=== PATIENT | female | born 1940 | race African-American/Black ===

== ENCOUNTER 2017-03-23 07:07 | Inpatient (IN) ==
[2017-03-23] MEDS ORDERED: SOLU-MEDROL IV ONE (07:45)
[2017-03-23] MEDS ORDERED: DUONEB (A & A) INH ONE (07:45)
[2017-03-23 08:09] LABS: MANUAL DIFF NEEDED? NO
--- NOTE | 2017-03-23 08:18 | Diag Imaging Result Doc PS360 ---
CHEST-2 VIEWS - 03/23/2017 INDICATION: CP TECHNIQUE: COMPARISON: 01/14/2017 FINDINGS: Stable left chest port. Stable borderline cardiomegaly. Pulmonary vascularity is normal. Stable patchy atelectasis in the lung bases. No pneumothorax or pleural effusion. IMPRESSION: No change from prior. Electronically signed by Colin Martel 03/23/2017 8:15 AM
[2017-03-23 08:26] LABS: BASO% 0.6 % (0.0-0.8); EOS# 0.11 X1000 (0.0-0.7); EOS% 2.2 % (0.0-10.0); HEMATOCRIT 40.6 % (37.0-47.0); HEMOGLOBIN 13.4 g/dL (12.0-16.0); IMM GRAN# 0.02 X1000 (0.0-0.04); IMM GRAN% 0.4 % (0.0-0.5); LYMPH# 2.03 X1000 (1.2-3.4); LYMPH% 40.2 % (20.5-51.1); MCH 26.4 PG (27-31); MCV 80.1 FL (81-99); MONO# 0.46 X1000 (0.11-0.59); MONO% 9.1 % (1.7-9.3); MPV 11.7 FL (7.4-10.4); NEUT% 47.5 % (42.2-75.2); PLT 176 X1000 (130-400); RBC 5.07 XMIL (4.2-5.4)
[2017-03-23 08:28] LABS: INR 1.62; PROTIME 17.5 Seconds (9.2-11.7)
[2017-03-23 08:34] LABS: AGAP 16; ALBUMIN 4.6 g/dL (3.5-5.0); ALKALINE PHOSPHATASE 100 U/L (32-104); BUN 16 mg/dL (8-22); CALCIUM 9.5 mg/dL (8.8-10.2); CHLORIDE 106 mmol/L (98-107); CK PROFILE 94 U/L (24-173); COSMO 288; GOT 15 U/L (10-30); GPT 11 U/L (10-36); POTASSIUM 3.4 mmol/L (3.5-5.1); PTT 44.5 Seconds (22.0-36.0); SODIUM 144 mmol/L (136-145); TCO2 22 mmol/L (25-35); TOTAL BILIRUBIN 0.24 mg/dL (0.20-1.00); TOTAL PROTEIN 6.4 g/dL (6.3-8.3)
[2017-03-23 08:37] LABS: URINE MICRO REVIEW NEEDED? NO; URINE SOURCE CLEAN CATCH
[2017-03-23 08:41] LABS: BILIRUBIN URINE NEGATIVE (NEGATIVE); BLOOD URINE NEGATIVE (NEGATIVE); COLOR YELLOW; GLUCOSE URINE NEGATIVE (NEGATIVE); LEUKOCYTES URINE NEGATIVE (NEGATIVE); NITRITE URINE NEGATIVE (NEGATIVE); PROTEIN URINE 50 mg/dL (NEGATIVE); SP GRAVITY URINE 1.013; TURBIDITY URINE CLEAR (CLEAR); UR EPITHELIAL CELLS <10 /HPF (<10); URINE BACTERIA 2+ /HPF; URINE CULTURE NEEDED? YES; URINE RBC <10 /HPF (<10); URINE WBC <10 /HPF (<10); UROBILINOGEN URINE NORMAL (NORMAL)
--- NOTE | 2017-03-23 09:06 | EKG Report ---
Test Performed on : 03/23/2017 07:11:52 AM Test Reason : Chest Pain Blood Pressure : / mmHG Vent. Rate : 056 BPM Atrial Rate : 056 BPM P-R Int : 132 ms QRS Dur : 092 ms QT Int : 438 ms P-R-T Axes : 044 022 034 degrees QTc Int : 422 ms Sinus bradycardia. Possible Left atrial enlargement Left ventricular hypertrophy Abnormal ECG When compared with ECG of 14-JAN-2017 14:40, premature atrial complexes. are no longer present Unconfirmed Result
[2017-03-23] MEDS ORDERED: APRESOLINE IV ONE (09:18)
[2017-03-23] MEDS ORDERED: KLOR-CON PO ONE (09:59)
[2017-03-23] MEDS ORDERED: ZOFRAN IV ONE (10:34)
--- NOTE | 2017-03-23 11:16 | ED EKG INTERP ---
This chart was entered by Elise Layton Scribe, acting as scribe for Lyndsey Crandall MD. EKG Interpretation - EKG Time of EKG reading by physician:: 07:11 EKG Read and Signed by:: Lyndsey Crandall EKG Interpretation (*Must complete 3 of following elements*): Abnormal Rate: 56 Rhythm: sinus amisha [place]: normal QRS: LVH NH Interval: normal ST Wave: normal Comments: possible L atrial enlargement This chart was documented by the indicated scribe, (Elise Layton Scribe) and accurately reflects the services I performed and decisions made by me, Lyndsey Crandall MD, as attested by the provider's signature.
--- NOTE | 2017-03-23 12:14 | Diag Imaging Result Doc PS360 ---
EXAM: HEAD W/O CONTRAST HISTORY: TEMPLE TECHNIQUE: CT of the head without contrast with dose reduction (clarity.) COMMENT: There is some calcification in the basal ganglia. There is no evidence of mass effect bleed or abnormal extra-axial fluid collection. The visualized paranasal sinuses are clear. IMPRESSION: Compared to 08/12/2016 there has been no significant change in the appearance of the brain. No acute disease. Electronically signed by Nitesh Lopez 03/23/2017 12:12 PM
--- NOTE | 2017-03-23 14:57 | HISTORY AND PHYSICAL ---
HISTORY OF PRESENT ILLNESS: Ms. Solis came in. She just feels bad. She feels a little bit nauseated. She feels weak. She feels like her chest is heavy. Feels like she is short of breath. Numbness in her hands and her feet. She felt like she had a hard time getting up and walking and dressing this morning. She came to the emergency room. PAST MEDICAL HISTORY: 1. CLL. 2. Osteoarthritis. 3. Scoliosis of the upper spine, thoracic spine, and cervical arthritis. 4. Hypertension. 5. History of colon polyps. 6. History of DVT. 7. History of benign positional vertigo, was hospitalized in 2000 with this. 8. History of depression. 9. Appendectomy. 10. Status post abdominal hysterectomy. 11. Osteopenia. 12. She has had cervical headaches, cervical degenerative disk disease. 13. She has had a heart catheterization on 01/01/2014. 14. Admitted on 03/09/2016. FAMILY HISTORY: Father at 79 secondary to complications of acute myocardial infarction. Mother at 94, complication of breast cancer. SOCIAL HISTORY: Lost her brother. required total care for years, he about almost 2 years ago. Has 2 sons. Denies alcohol or tobacco. REVIEW OF SYSTEMS: General: No weight gain or loss. No fever or chills. HEENT: Unremarkable. Respiratory: No increased work of breathing or dyspnea. Cardiovascular: No chest pain or tachy palpitation. GI: Unremarkable. : Unremarkable. PHYSICAL EXAMINATION: VITAL SIGNS: Afebrile on exam. Temperature 98.1 degrees, pulse 71, respirations 18, blood pressure 167/69. HEENT: Pupils are equal, round. CVP was less than 6 cm. I did a funduscopic exam, fundi were a clear, no sign of increased pressure. LUNGS: Clear in all lung lombardi. CARDIOVASCULAR: Regular rhythm and rate without murmur or S3. ABDOMEN: Soft. SKIN: Warm and dry. NECK: Supple. Weight 139 pounds. O2 saturation 98%. DIAGNOSTIC DATA: Lab: White count 5050, hematocrit 40, platelet count 176,000. Sodium 144, potassium 3.4, chloride 106, BUN 16, creatinine 1.0. Liver functions are unremarkable. AST 15, ALT 11. CPK was 94. Troponin less than 0.01. ProTime was 17.5. PTT was 14.5. Urinalysis unremarkable. Chest x-ray: There is no change, no sign of infiltrate. Pulmonary vasculature was normal by report. CT of the head was unremarkable. ASSESSMENT AND PLAN: 1. General nausea, fatigue, numbness, tingling, but no specific neurologic deficits. She did feel like her legs are weak. She has underlying chronic lymphocytic leukemia, and she has chronic cervical arthralgia, back of her head is hurting. I do not see anything focal. She is having chest pressure. Enzymes are negative. I will put her in, check serial EKGs and CPK and troponin. We will give her some fluid, and I may give her a little bit of Solu-Medrol. 2. She has chronic lymphocytic leukemia. Aware. She has had recently increase in this last year in her white blood cell count but no sign of a blast crisis. Counts look pretty good at the present time. 3. Osteoarthritis. 4. History of atrial fibrillation, rate has been controlled. 5. History of hypertension. CURRENT MEDICATIONS: She is on: 1. Cartia XT which is diltiazem, 120 mg a day. 2. Hydrocodone 10/325 q.8 hours p.r.n. 3. Lorazepam 1 mg q.6 hours. 4. Cozaar 50 mg b.i.d. 5. Robaxin 750 mg 4 times daily. 6. Protonix 40 mg q.12 hours. 7. Carafate 1 g p.o. q.4 times a day. 8. Coumadin 3 mg p.o. alternating with 4 mg at bedtime. cc: Brendon Chacko MD
[2017-03-23] MEDS ORDERED: SOLU-MEDROL IV SCH (16:05)
[2017-03-23] MEDS ORDERED: ATIVAN PO PRN (16:05)
[2017-03-23] MEDS: NS 1,000 ML IV SCH (16:34)
[2017-03-23] MEDS: CARAFATE PO SCH ×2 (16:35→21:47)
[2017-03-23] MEDS: TYLENOL PO PRN ×2 (17:12→23:26)
[2017-03-23] MEDS ORDERED: ATIVAN ONE (18:23)
[2017-03-23] MEDS: ZOFRAN IV PRN (18:26)
[2017-03-23] MEDS ORDERED: ATIVAN IV ONE (18:28)
[2017-03-23 18:40] LABS: ALLEN TEST YES; BLOOD TYPE ARTERIAL; DRAW SITE L RADIAL; METHB 1.1 % (0.0-1.5); O2(CT) 20.4 mL/dL (15.0-23.0); PCO2(98.6) 27 mmHg (35-45); PO2(98.6) 81 mmHg (60-100); SAMPLE BLOOD; SAO2 97.9 % (95.0-100.0); THB 15.1 g/dL (11.5-17.4); pH(98.6) 7.46 (7.35-7.45)
--- NOTE | 2017-03-23 18:49 | PROGRESS NOTE ---
DATE: 03/23/2017 SUBJECTIVE: Ms. Solis they called a critical care. She apparently became unresponsive, eyes rolled back, when I got there she was breathing about 50 times a minute, she did respond to me and answered questions and I tried to get her slow her breathing down which she did. She complains that her chest feels heavy, EKG was unremarkable. No ST-segment changes. Of course the chest x-ray was unremarkable, all her lab looked unremarkable. I talked to family, the family feel like he has is having similar to what she has had before panic attacks and a lot of anxiety and feel like she is sleeping good and she had no focal neurologic deficits, no sign of seizure activity. OBJECTIVE: Vital signs: Temperature 98.5 degrees, pulse 70, respirations 20, blood pressure 134/72. Lungs: Are clear in all lung lombardi. Cardiovascular: Regular rhythm and rate without murmur or S3. Abdomen: Soft. Skin: Is warm and dry. We gave her 1 mg Ativan IV and it seemed to help. ASSESSMENT AND PLAN: 1. Will check some blood gases and will move her to [facility], I am going to let them use some Ativan p.r.n. see if we can help, I suspect this is anxiety with hyperventilation. I do not see any sign of neurologic or cardiac pathology. 2. Chronic lymphocytic leukemia aware. 3. History of atrial fibrillation, rate has been controlled. Her blood pressure was 180/70 so we not had any hypotension. We are given the methylprednisone and I may diminish that down a little bit to 40 mg IV q.8, will give Ativan 1 mg she can have q.4 hours p.r.n. cc: Brendon Chacko MD
[2017-03-23] MEDS: ATIVAN IV PRN (19:44)
[2017-03-23] MEDS ORDERED: CELEXA PO SCH (21:00)
[2017-03-23] MEDS: COUMADIN PO SCH (21:47)
[2017-03-23] MEDS: COZAAR PO SCH (21:47)
[2017-03-23] MEDS: ROBAXIN PO SCH (21:47)
[2017-03-23] MEDS: SOLU-MEDROL IV SCH (21:47)
[2017-03-24] MEDS: SOLU-MEDROL IV SCH (02:19)
[2017-03-24] MEDS: ZOFRAN IV PRN ×4 (02:25→20:16)
[2017-03-24] MEDS: NORCO-10 PO PRN ×4 (02:25→20:16)
[2017-03-24] MEDS: NS 1,000 ML IV SCH ×3 (02:26→15:50)
[2017-03-24 05:27] LABS: MANUAL DIFF NEEDED? NO
[2017-03-24 05:29] LABS: HEMATOCRIT 39.1 % (37.0-47.0); HEMOGLOBIN 13.1 g/dL (12.0-16.0); IMM GRAN# 0.04 X1000 (0.0-0.04); IMM GRAN% 0.3 % (0.0-0.5); LYMPH# 1.81 X1000 (1.2-3.4); LYMPH% 15.6 % (20.5-51.1); MCH 26.8 PG (27-31); MCHC 33.5 g/dL (33-37); MCV 80.1 FL (81-99); MONO# 0.62 X1000 (0.11-0.59); MONO% 5.3 % (1.7-9.3); MPV 10.5 FL (7.4-10.4); NEUT% 78.8 % (42.2-75.2); PLT 184 X1000 (130-400); RBC 4.88 XMIL (4.2-5.4)
[2017-03-24 06:01] LABS: ALBUMIN 4.1 g/dL (3.5-5.0); CALCIUM 9.4 mg/dL (8.8-10.2); POTASSIUM 4.8 mmol/L (3.5-5.1); TOTAL BILIRUBIN 0.18 mg/dL (0.20-1.00); TOTAL PROTEIN 6.1 g/dL (6.3-8.3)
[2017-03-24] MEDS: COZAAR PO SCH ×2 (08:29→20:13)
[2017-03-24] MEDS: ROBAXIN PO SCH ×3 (08:29→20:14)
[2017-03-24] MEDS: CARAFATE PO SCH ×4 (08:29→20:13)
[2017-03-24] MEDS: CARDIZEM CD PO SCH (08:29)
--- NOTE | 2017-03-24 08:52 | PROGRESS NOTE ---
DATE: 03/24/2017 SUBJECTIVE: Ms. Solis is feeling much better. She did get some sleep last night. Her chest still feels kind of heavy, but she feels like she is a little less anxious. OBJECTIVE: Temperature 97.6 degrees, pulse 55, respirations 18, blood pressure 127/52, pupils are equal, round. Lungs are clear in all lung lombardi. Cardiovascular: Regular rhythm and rate without murmur or S3. Weight 145 pounds. Urine output was over 2 L. White count 11,620. Hematocrit 39, platelet count 184,000. Sodium 142, potassium 4.8, chloride 108. BUN 17. Creatinine 1.1. Blood sugars have been 165, 127, and 122. ASSESSMENT AND PLAN: 1. Chest heaviness and pressure. I do not see sign of cardiac ischemia. Continue to monitor. 2. Good deal of anxiety. I started her on Celexa. She is getting some Ativan. 3. Underlying chronic lymphocytic leukemia. Her blood counts look stable. Lymphocyte count 15% of 11,000. 4. Osteoarthritis and some degenerative arthritis and scoliosis in the upper thoracic and cervical spine. Not hurting too bad in the back of her neck at this point. 5. Blood pressure appears well controlled. 6. She feels like she gets a reaction from Solu-Medrol, so we will discontinue the Solu-Medrol. Review of her orders: Continue her [place] 10 mg q. 8 hours p.r.n., Cardizem CD 120 mg daily, Ativan 1 mg q.6 hours p.r.n. has been upped to q.4 hours p.r.n., Cozaar 50 mg b.i.d., Robaxin 750 mg 3 times a day. We will discontinue the Solu-Medrol. She is on Coumadin 4 mg a day, and it is for underlying atrial fibrillation. Appears to be in sinus rhythm. ProTime INR was 1.62. I started her on some Celexa 40 mg daily to see if this will help. cc: Brendon Chacko MD
[2017-03-24] MEDS: CELEXA PO SCH (09:06)
[2017-03-24] MEDS: ATIVAN IV PRN (13:22)
[2017-03-24] MEDS: PROTONIX PO SCH ×2 (15:37→20:13)
[2017-03-24] MEDS: COUMADIN PO SCH (20:13)
[2017-03-25] MEDS: NS 1,000 ML IV SCH ×2 (04:45→15:39)
[2017-03-25] MEDS: NORCO-10 PO PRN ×2 (08:00→20:23)
[2017-03-25] MEDS: ZOFRAN IV PRN ×2 (08:00→20:23)
[2017-03-25] MEDS: ROBAXIN PO SCH ×3 (08:24→20:24)
[2017-03-25] MEDS: CARDIZEM CD PO SCH (08:25)
[2017-03-25] MEDS: PROTONIX PO SCH ×2 (08:25→20:24)
[2017-03-25] MEDS: CARAFATE PO SCH ×4 (08:25→20:24)
[2017-03-25] MEDS: COZAAR PO SCH ×2 (08:25→20:24)
[2017-03-25] MEDS: CELEXA PO SCH (08:26)
[2017-03-25] MEDS ORDERED: MILK OF MAGNESIA PO ONE (09:07)
--- NOTE | 2017-03-25 09:40 | PROGRESS NOTE ---
DATE: 03/25/2017 SUBJECTIVE: Ms. Solis is feeling a little bit better. Chest is not as heavy. Having some abdominal cramping. She thinks she may be a little constipated. Remains afebrile. OBJECTIVE: Vital Signs: Temperature 97.9 degrees, pulse 59, respirations 16, blood pressure 143/69. HEENT: Pupils are equal and round. Lungs: Are clear in all lung lombardi. Cardiovascular Examination: Regular rhythm and rate without murmur or S3. Abdomen: Soft. Skin: Warm and dry. Is and Os: Urine output over 2 L. Laboratory Data: Blood sugars 122, 95, and 84. ASSESSMENT AND PLAN: 1. Chest heaviness and pressure. No sign of cardiac ischemia. This is better, improved. 2. Anxiety, panic attack, hyperventilation. This is improved. 3. Underlying chronic lymphocytic leukemia. Her blood counts look good. 4. Osteoarthritis, degenerative arthritis, and scoliosis of the upper thoracic and cervical spine. 5. Constipation. We will see if we can give her something to help. We will try milk of magnesia and a Dulcolax suppository to see if that will help. 6. History of atrial fibrillation and on Coumadin. Prothrombin time was 17.5, INR was 1.6 on the 9th. See if we can increase activity. She got a little bit of food in yesterday and possibly go home tomorrow. cc: Brendon Chacko MD
[2017-03-25] MEDS: DULCOLAX PR SCH (12:54)
[2017-03-25] MEDS: COUMADIN PO SCH (20:24)
[2017-03-25 21:57] LABS: MODALITY CANNULA
[2017-03-26] MEDS: NS 1,000 ML IV SCH ×2 (03:07→15:06)
--- NOTE | 2017-03-26 05:52 | EKG Report ---
Test Performed on : 03/24/2017 06:16:04 AM Test Reason : chest pain Blood Pressure : / mmHG Vent. Rate : 055 BPM Atrial Rate : 055 BPM P-R Int : 122 ms QRS Dur : 100 ms QT Int : 474 ms P-R-T Axes : 036 024 027 degrees QTc Int : 453 ms Sinus bradycardia. Otherwise normal ECG When compared with ECG of 23-MAR-2017 07:11, (Unconfirmed) No significant change was found Confirmed by Rico HAGER, Jarod Hilton ([id number]) on 03/27/2017 8:25:48 AM
--- NOTE | 2017-03-26 06:01 | EKG Report ---
Test Performed on : 03/23/2017 6:03:10 PM Test Reason : No ORder in [place] [employer] Blood Pressure : / mmHG Vent. Rate : 116 BPM Atrial Rate : 116 BPM P-R Int : 130 ms QRS Dur : 078 ms QT Int : 330 ms P-R-T Axes : 038 033 098 degrees QTc Int : 458 ms Sinus tachycardia. Possible Left atrial enlargement Left ventricular hypertrophy with repolarization abnormality Abnormal ECG When compared with ECG of 23-MAR-2017 18:01, (Unconfirmed) Non-specific change in ST segment in Inferior leads ST no longer depressed in Lateral leads T wave inversion no longer evident in Inferior leads Confirmed by Rico HAGER, Jarod Hilton ([id number]) on 03/27/2017 8:25:30 AM
[2017-03-26] MEDS ORDERED: MILK OF MAGNESIA PO ONE (08:08)
[2017-03-26] MEDS: DULCOLAX PR SCH (08:33)
[2017-03-26] MEDS: COZAAR PO SCH ×2 (08:34→20:47)
[2017-03-26] MEDS: CARAFATE PO SCH ×4 (08:34→20:47)
[2017-03-26] MEDS: ROBAXIN PO SCH ×3 (08:34→20:47)
[2017-03-26] MEDS: PROTONIX PO SCH ×2 (08:34→20:47)
[2017-03-26] MEDS: CELEXA PO SCH (08:34)
[2017-03-26] MEDS: CARDIZEM CD PO SCH (08:34)
--- NOTE | 2017-03-26 08:36 | PROGRESS NOTE ---
DATE: 03/26/2017 SUBJECTIVE: Ms. Solis says she does not feel good today. Chest still feels funny. Feels a little short of breath. She has not had a bowel movement. OBJECTIVE: Vital signs: Temperature 98.8 degrees, pulse 58, respirations 20, blood pressure 165/65. Weight 140 pounds. HEENT: Pupils are equal, round. Lungs: Clear in all lung lombardi. Cardiovascular: Regular rhythm and rate without murmur or S3. Abdomen: Soft. Skin: Warm and dry. : Urine output 3800 mL. LAB: Reviewed from the . Hematocrit is stable at 29. Blood sugars 106, 84, 81, 88. ASSESSMENT AND PLAN: 1. Chest heaviness and pressure. No sign of cardiac ischemia. I think this is improved but still there. I have started some Celexa and she is taking Ativan as needed. 2. Anxiety, panic attack, hyperventilation, improved. 3. Chronic lymphocytic leukemia. Blood counts are stable. 4. Osteoarthritis, degenerative arthritis, scoliosis of thoracic and cervical spine. 5. Constipation. We will try some more milk of magnesia. She is still taking the [place] and she is on Carafate. 6. History of atrial fibrillation. Protime checked on the was 17.5. We will recheck that again tomorrow morning. Check electrolytes and CBC again in the morning. See if we can get her something for her bowels. We tried milk of magnesia. We will try that again with a Dulcolax suppository and make sure she has Colace 100 mg twice a day. May be put her on some MiraLAX as well daily. cc: Brendon Chacko MD
[2017-03-26] MEDS: MIRALAX PO SCH (08:40)
[2017-03-26] MEDS: COLACE PO SCH ×2 (08:40→20:47)
[2017-03-26] MEDS: NORCO-10 PO PRN ×2 (08:48→16:50)
[2017-03-26] MEDS: ZOFRAN IV PRN ×3 (08:49→20:47)
[2017-03-26 08:57] LABS: CALCIUM 8.5 mg/dL (8.8-10.2); POTASSIUM 4.1 mmol/L (3.5-5.1)
--- NOTE | 2017-03-26 09:21 | Diag Imaging Result Doc PS360 ---
EXAM: ABDOMEN FLAT/UPRIGHT HISTORY: constipation TECHNIQUE: Two views COMPARISON: 01/14/2017 FINDINGS: No free air beneath the diaphragm. The gallbladder has been removed. Moderate scoliosis. There is stool throughout the colon. The bowel loops are not dilated. There are several pelvic phleboliths. IMPRESSION: Constipation Electronically signed by Ac Carrillo 03/26/2017 9:19 AM
[2017-03-26] MEDS: COUMADIN PO SCH (20:47)
[2017-03-26] MEDS: ATIVAN PO PRN (20:52)
[2017-03-27] MEDS: NS 1,000 ML IV SCH ×2 (03:06→13:47)
[2017-03-27 04:59] LABS: MANUAL DIFF NEEDED? NO
[2017-03-27 05:05] LABS: BASO% 0.5 % (0.0-0.8); EOS# 0.28 X1000 (0.0-0.7); EOS% 4.5 % (0.0-10.0); HEMATOCRIT 36.2 % (37.0-47.0); HEMOGLOBIN 11.9 g/dL (12.0-16.0); LYMPH% 41.7 % (20.5-51.1); MCH 26.9 PG (27-31); MCHC 32.9 g/dL (33-37); MCV 81.9 FL (81-99); MONO# 0.63 X1000 (0.11-0.59); MONO% 10.1 % (1.7-9.3); MPV 11.5 FL (7.4-10.4); NEUT% 43.2 % (42.2-75.2); PLT 150 X1000 (130-400); RBC 4.42 XMIL (4.2-5.4)
[2017-03-27] MEDS: CARAFATE PO SCH ×4 (09:29→20:17)
[2017-03-27] MEDS: ROBAXIN PO SCH ×3 (09:29→20:17)
[2017-03-27] MEDS: CELEXA PO SCH (09:29)
[2017-03-27] MEDS: COZAAR PO SCH ×2 (09:29→20:17)
[2017-03-27] MEDS: PROTONIX PO SCH ×2 (09:30→20:17)
[2017-03-27] MEDS: CARDIZEM CD PO SCH (09:30)
[2017-03-27] MEDS: DULCOLAX PR SCH (09:33)
[2017-03-27] MEDS: MIRALAX PO SCH (09:33)
[2017-03-27] MEDS: COLACE PO SCH ×2 (09:34→20:17)
[2017-03-27 09:47] LABS: INR 2.27; PROTIME 25.1 Seconds (9.2-11.7)
--- NOTE | 2017-03-27 09:56 | PROGRESS NOTE ---
DATE: 03/27/2017 SUBJECTIVE: Ms. Solis is feeling better today. She did have a bowel movement, not as much chest discomfort. She is concerned her appetite is not very good. OBJECTIVE: Vital Signs: Temp 98.6 degrees, pulse 53, respirations 14, blood pressure 156/51. Lungs: Clear in all lung lombardi. Cardiovascular exam: Regular rhythm and rate without murmur or S3. Abdomen: Soft. Skin: Warm and dry. : Urine output 3.5 L. LAB: White count 6230, hematocrit 36, platelet count 150,000. Sodium 142, potassium 4.1, chloride 107, bicarbonate 24, BUN 15, creatinine 1.1. Blood sugars have remained within normal limits at 81 88 and 121. X-RAY: Abdominal x-ray from yesterday showed constipation and no free air below the diaphragm. Gallbladder had been removed. Moderate scoliosis. There is stool throughout the colon, so doing much better. ASSESSMENT AND PLAN: 1. Chest heaviness and pressure, which is better. Do not see any evidence of cardiac ischemia. 2. Anxiety, panic attack, hyperventilation; this is improved. Gas exchange and comfort levels much better. 3. Chronic lymphocytic leukemia, stable counts. 4. Osteoarthritis, degenerative arthritis, scoliosis of thoracic cervical spine. 5. Constipation, which appears to be resolved. 6. History of atrial fibrillation, rate controlled. Hope to get her home tomorrow, increase her activity. Encourage p.o. intake. Now, looking over orders, I do not see any change at this point. cc: Brendon Chacko MD
[2017-03-27] MEDS: ZOFRAN IV PRN (11:42)
[2017-03-27] MEDS: TYLENOL PO PRN (11:58)
[2017-03-27] MEDS: CATAPRES PO PRN (17:31)
[2017-03-27] MEDS: ATIVAN PO PRN (20:17)
[2017-03-27] MEDS: COUMADIN PO SCH (20:17)
[2017-03-28] MEDS: NS 1,000 ML IV SCH (02:40)
[2017-03-28] MEDS: CATAPRES PO PRN (03:45)
[2017-03-28] MEDS: MIRALAX PO SCH (08:16)
[2017-03-28] MEDS: CARDIZEM CD PO SCH (08:17)
[2017-03-28] MEDS: COLACE PO SCH (08:17)
[2017-03-28] MEDS: NORCO-10 PO PRN (08:17)
[2017-03-28] MEDS: ROBAXIN PO SCH (08:17)
[2017-03-28] MEDS: CELEXA PO SCH (08:17)
[2017-03-28] MEDS: ZOFRAN IV PRN (08:17)
[2017-03-28] MEDS: COZAAR PO SCH (08:17)
[2017-03-28] MEDS: PROTONIX PO SCH (08:17)
[2017-03-28] MEDS: CARAFATE PO SCH (08:18)
[2017-03-28] MEDS: DULCOLAX PR SCH (08:18)
[2017-03-28 08:19] VITALS: BP 145/61
--- NOTE | 2017-03-28 09:33 | DISCHARGE SUMMARY ---
ADMISSION DATE: 03/23/2017 DISCHARGE DATE: 03/28/2017 HISTORY OF PRESENT ILLNESS: This is a patient of mine, well known to me. Just presented feeling bad, felt a little bit nauseated, felt weak. Her chest felt heavy and felt short of breath. Numbness in her hands and feet, and had a hard time getting up and walking, and was concerned about the weakness. PAST MEDICAL HISTORY: 1. CLL. 2. Osteoarthritis. 3. Scoliosis of her spine, thoracic spine. 4. Cervical arthritis. 5. Hypertension. 6. History of colon polyps. 7. History of DVT. 8. History of benign positional vertigo, was hospitalized in 2000 with this. 9. History of depression. 10. Appendectomy. 11. Status post abdominal hysterectomy. 12. Osteopenia. 13. Cervical headaches, cervical degenerative disk disease. 14. Has had a heart catheterization on 01/01/2014. 15. Admitted on 03/09/2016. Note, the heart catheterization looked good back in 2013. HOSPITAL COURSE: Her nausea, numbness, and tingling seemed to improve. We gave her some Zofran and some IV fluids. When she got to the floor, she did have a spell. It appeared that she was hyperventilating. We got her to slow her breathing down and we moved her to [facility]. I did start her on some Celexa. I gave her some Ativan. There was no sign of cardiac ischemia. CPK and troponin unremarkable. All other lab unremarkable. EKGs with no ST-segment changes. This, in the face of a heart catheterization in 2013. She had an echocardiogram done in December of 2012. Left ventricle appears to have mild concentric hypertrophy. Ejection fraction was 80%. She had a myocardial perfusion scan done in on 03/10/2016 and normal myocardial perfusion scan, normal ejection fraction, once again about 80%. Normal left ventricular function. She showed continued improvement. [place] she was ready go home. She did have some constipation. I checked an abdominal film and confirmed that. We did give her some milk of magnesia and she had a good bowel movement. She had gastric emptying study done on 02/15/2017. Mildly delayed gastric emptying was noted at that time so we will discharge her home. DISCHARGE MEDICATIONS: She will be on her [place] 10 q.8 hours p.r.n. pain, Celexa 40 mg q.a.m., Cardizem CD 120 mg daily and I think I will go up to 240 mg on that as she is concerned about her blood pressure, Colace 100 mg b.i.d., Ativan of she can take 1 mg p.o. b.i.d. p.r.n. anxiety, Cozaar 50 mg b.i.d., Robaxin 750 mg which she can take 3 times a day as needed, Protonix 40 mg b.i.d., MiraLAX 17 g daily, Carafate 1 g 4 times a day. I will continue her Coumadin at 4 mg a day. Note, her last prothrombin time was 25 so we will check that when I see her back in my office in a week. DISCHARGE INSTRUCTIONS: Encouraged her to get some exercise and I will see her back in my office in a week. cc: Brendon Chacko MD
[2017-03-28] MEDS ORDERED: HEPARIN ONE (10:24)
--- NOTE | 2017-04-01 18:02 | PROVIDER DOCUMENTATION ---
This chart was entered by Elise Layton Scribe, acting as scribe for Lyndsey Crandall MD. HPI-General Adult - General Chief Complaint: Shortness of Breath Stated Complaint: cp/sob Time Seen by Provider: 03/23/17 07:44 Source: patient Allergies/Adverse Reactions: Patient Allergies Allergy/AdvReac Type Severity Reaction Status Date / Time BIANKA Inhibitors Allergy Severe bradycardia Verified 03/23/17 07:28 naproxen Allergy Severe bleeding Verified 03/23/17 07:28 Penicillins Allergy Severe SWELLING Verified 03/23/17 07:28 Sulfa (Sulfonamide Allergy Severe SWELLING Verified 03/23/17 07:28 Antibiotics) [Sulfa(Sulfonamide Antibiotics)] propoxyphene napsylate * Allergy Intermediate SWELLING Verified 03/23/17 07:28 [From DcNicola 100] Home Medications: Home Medication List Medication Instructions Recorded Confirmed Last Taken Type Pantoprazole [Protonix] 40 mg PO Q12H 08/12/16 03/23/17 02/05/17 History Losartan [Cozaar] 50 mg PO BID 02/02/17 03/23/17 02/06/17 07:00 History Sucralfate [Carafate] 1 gm PO 4XDAY #120 tablet 02/06/17 03/23/17 Unknown Rx Hydrocodone/Acetaminophen [[place]ry 1 each PO Q8H PRN PRN 03/23/17 03/23/17 Unknown History 10-325 Tablet] Lorazepam 1 mg PO Q6H PRN PRN 03/23/17 03/23/17 Unknown History Methocarbamol [Robaxin-750] 750 mg PO TID 03/23/17 03/23/17 Unknown History Warfarin Sodium 4 mg PO QHS 03/23/17 03/23/17 Unknown History Warfarin [Coumadin] 3 mg PO DAILY 03/23/17 03/23/17 Unknown History Citalopram [Celexa] 40 mg PO QAM #30 tablet 03/28/17 Unknown Rx Diltiazem HCl [Cartia Xt] 240 mg PO DAILY #30 cap.er.24h 03/28/17 Unknown Rx Docusate Sodium [Colace] 100 mg PO BID #60 capsule 03/28/17 Unknown Rx - History of Present Illness -Gen Adult Nature of Presenting Problems: 76 yo F presents to the ER with complaint of cough, painful inspiration, fever, and dizziness x3 days. States Dr. Chacko prescribed a z-pack but has not had any relief. 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 Onset/Duration: reports: 3 days ago Associated Symptoms: reports: cough, fever/chills, shortness of breath, weakness Review of Systems - Adult - REVIEW OF SYSTEMS - ADULT Constitutional: reports: chills, fever Eyes: reports: no symptoms reported Ears, Nose, Mouth & Throat: reports: no symptoms reported Cardiovascular: reports: chest pain. denies: palpitations Respiratory: reports: cough, shortness of breath Gastrointestinal: reports: no symptoms reported Genitourinary: reports: no symptoms reported Musculoskeletal: reports: no symptoms reported Integumentary: reports: no symptoms reported Neurological: reports: dizziness/vertigo, headache/migraines Psychiatric: reports: no symptoms reported Endocrine: reports: no symptoms reported Hematologic/Lymphatic: reports: no symptoms reported Allergic/Immunologic: reports: no symptoms reported All Other Systems: Reviewed and Negative Past History - Adult - PAST MEDICAL HISTORY-ADULT Review of Records: reports: Nursing Assessment Review, Medications Reviewed Major Childhood Illnesses: reports: history unknown Cardiovascular: reports: A-Fib, HTN Psychiatric: reports: depression Endocrine/Immune: reports: Leukemia (remission 2 yrs) Other Conditions: reports: other - PRIOR SURGERIES/PROCEDURES Surgical/Procedure History: reports: appendectomy, cholecystectomy, hysterectomy , other (port a cath left anterior chest wall) - PRIOR HOSPITALIZATIONS Prior Hospitalizations: reports: none - IMMUNIZATION STATUS Childhood Immunizations: See Nurse Assessment Flu Vaccine: See Nurse Assessment Physical Exam-General - PHYSICAL EXAM-ADULT Initial Vital Signs Reviewed: Yes - CONSTITUTIONAL General Appearance: alert, no apparent distress - EYES Eyes: PERRL/EOMI, pink conjunctivae - HEAD, EARS, NOSE, MOUTH & THROAT HENMT: normocephalic/atraumatic, normal ENT inspection - NECK Neck: supple, normal inspection - RESPIRATORY Respiratory: no respiratory distress, no accessory muscle use - CARDIOVASCULAR Cardiovascular: normal peripheral pulses, regular rate, rhythm - GASTROINTESTINAL (ABDOMEN) Abdominal Exam: normal bowel sounds, non tender, soft - MUSCULOSKELETAL Back Exam: no CVA tenderness, no vertebral tenderness Extremity: normal gait, normal inspection - SKIN Integumentary: normal color, warm/dry - NEUROLOGIC Neurologic: grossly normal, no motor/sensory deficits - PSYCHIATRIC Psych/Mental Status: normal mood/affect, normal thought content, normal thought process, oriented x 3 Progress - PLAN OF CARE/RESULTS Progress/Plan/Lab Results: Vital Signs - 8 hr 03/23/17 07:09 03/23/17 08:00 03/23/17 08:22 Temperature 98.1 F Pulse Rate 71 58 L 58 L Respiratory Rate 18 16 16 Blood Pressure 167/69 169/95 O2 Sat by Pulse Oximetry 100 98 03/23/17 09:06 Temperature Pulse Rate 65 Respiratory Rate 15 Blood Pressure 182/96 O2 Sat by Pulse Oximetry 99 Laboratory Results - last 24 hr 03/23/17 03/23/17 03/23/17 07:37 07:37 07:37 WBC 5.05 RBC 5.07 Hgb 13.4 Hct 40.6 MCV 80.1 L MCH 26.4 L MCHC 33.0 RDW Std Deviation 16.5 H Plt Count 176 MPV 11.7 H Immature Gran % (Auto) 0.4 Neut % (Auto) 47.5 Lymph % (Auto) 40.2 [place] % (Auto) 9.1 Eos % (Auto) 2.2 Baso % (Auto) 0.6 Immature Gran # (Auto) 0.02 Neut # (Auto) 2.40 Lymph # (Auto) 2.03 [place] # (Auto) 0.46 Eos # (Auto) 0.11 Baso # (Auto) 0.03 PT INR PTT (Actin FS) D-Dimer 0.36 Sodium 144 Potassium 3.4 L Chloride 106 Carbon Dioxide 22 L Anion Gap 16 BUN 16 Creatinine 1.0 H Estimated GFR/1.73 m2 > 60 BUN/Creatinine Ratio 16 Glucose 101 Calculated Osmolality 288 Calcium 9.5 Magnesium 2.0 Total Bilirubin 0.24 AST 15 ALT 11 Alkaline Phosphatase 100 Creatine Kinase 94 Troponin T Oxc-Z-Guhfaqqyitp Pept Total Protein 6.4 Albumin 4.6 Globulin 1.8 Albumin/Globulin Ratio 2.6 Plasma Lactate Urine Source Urine Color Urine Turbidity Urine pH Ur Specific [place] Urine Protein Ur Glucose (Stick) Ur Ketones (Stick) Urine Blood Urine Nitrite Urine Bilirubin Urobilinogen Dipstick Urine Leukocytes Urine WBC (Auto) Urine RBC (Auto) U Epithel Cells (Auto) Urine Bacteria (Auto) 03/23/17 03/23/17 03/23/17 07:37 07:37 07:37 WBC RBC Hgb Hct MCV MCH MCHC RDW Std Deviation Plt Count MPV Immature Gran % (Auto) Neut % (Auto) Lymph % (Auto) [place] % (Auto) Eos % (Auto) Baso % (Auto) Immature Gran # (Auto) Neut # (Auto) Lymph # (Auto) [place] # (Auto) Eos # (Auto) Baso # (Auto) PT 17.5 H INR 1.62 PTT (Actin FS) 44.5 H D-Dimer Sodium Potassium Chloride Carbon Dioxide Anion Gap BUN Creatinine Estimated GFR/1.73 m2 BUN/Creatinine Ratio Glucose Calculated Osmolality Calcium Magnesium Total Bilirubin AST ALT Alkaline Phosphatase Creatine Kinase Troponin T 0.010 Bwh-N-Gjsxvxylpke Pept 46 Total Protein Albumin Globulin Albumin/Globulin Ratio Plasma Lactate Urine Source Urine Color Urine Turbidity Urine pH Ur Specific [place] Urine Protein Ur Glucose (Stick) Ur Ketones (Stick) Urine Blood Urine Nitrite Urine Bilirubin Urobilinogen Dipstick Urine Leukocytes Urine WBC (Auto) Urine RBC (Auto) U Epithel Cells (Auto) Urine Bacteria (Auto) 03/23/17 03/23/17 08:14 08:30 WBC RBC Hgb Hct MCV MCH MCHC RDW Std Deviation Plt Count MPV Immature Gran % (Auto) Neut % (Auto) Lymph % (Auto) [place] % (Auto) Eos % (Auto) Baso % (Auto) Immature Gran # (Auto) Neut # (Auto) Lymph # (Auto) [place] # (Auto) Eos # (Auto) Baso # (Auto) PT INR PTT (Actin FS) D-Dimer Sodium Potassium Chloride Carbon Dioxide Anion Gap BUN Creatinine Estimated GFR/1.73 m2 BUN/Creatinine Ratio Glucose Calculated Osmolality Calcium Magnesium Total Bilirubin AST ALT Alkaline Phosphatase Creatine Kinase Troponin T Hlq-W-Enowamctord Pept Total Protein Albumin Globulin Albumin/Globulin Ratio Plasma Lactate 0.8 Urine Source CLEAN CATCH Urine Color YELLOW Urine Turbidity CLEAR Urine pH 6.0 Ur Specific [place] 1.013 Urine Protein 50 A Ur Glucose (Stick) NEGATIVE Ur Ketones (Stick) NEGATIVE Urine Blood NEGATIVE Urine Nitrite NEGATIVE Urine Bilirubin NEGATIVE Urobilinogen Dipstick NORMAL Urine Leukocytes NEGATIVE Urine WBC (Auto) <10 Urine RBC (Auto) <10 U Epithel Cells (Auto) <10 Urine Bacteria (Auto) 2+ Orders Category Date Time Status Cardiac Monitoring DIRECTED Care 03/23/17 07:43 Active Saline Loc NOW Care 03/23/17 07:43 Active CHEST-2 VIEWS [RAD] Stat Exams 03/23/17 07:43 Completed BLOOD CULTURE [BLDCUL] Stat Lab 03/23/17 08:14 Results CBC WITH ELECTRONIC DIFF [HEME] Stat Lab 03/23/17 07:37 Completed CK PROFILE [SP CHEM] Stat Lab 03/23/17 07:37 Completed COMPREHENSIVE METABOLIC PANEL [CHEM] Stat Lab 03/23/17 07:37 Completed D-DIMER [CHEM] Stat Lab 03/23/17 07:37 Completed LACTATE, PLASMA [CHEM] Stat Lab 03/23/17 08:14 Completed MAGNESIUM [CHEM] Stat Lab 03/23/17 07:37 Completed PRO B-NATRIURETIC PEPTIDE Stat Lab 03/23/17 07:37 Completed PROTIME WITH INR [COAG] Stat Lab 03/23/17 07:37 Completed PTT [COAG] Stat Lab 03/23/17 07:37 Completed TROPONIN T Stat Lab 03/23/17 07:37 Completed UA NIMS W/REFLEX CULT [URINALYSIS] Stat Lab 03/23/17 08:30 Completed URINE CULTURE [RM] Routine Lab 03/23/17 09:27 Received Albuterol 2.5MG/Ipratrop 0.5MG [Duoneb (A & A)] Med 03/23/17 07:45 Discontinued 3 ml INH NOW ONE Hydralazine [Apresoline] Med 03/23/17 09:18 Discontinued 20 mg IV NOW ONE Methylprednisolone Sod Succ [Solu-Medrol] Med 03/23/17 07:45 Discontinued 80 mg IV NOW ONE Aerosol Treatments Routine Oth 03/23/17 07:46 Completed Aerosol Treatments Stat Oth 03/23/17 07:46 Completed EKG [EKG] Stat Ther 03/23/17 07:43 Draft Result Diagrams: 03/27/17 04:45 03/26/17 08:31 - CT/MRI 1 CT Study: Head Impression: Abnormal (compared to 08/12/26 there has been no significant change in the appearance of the brain, no acute disease, per radiologist) Comparison with other Films: no changes Departure - Departure Date of Disposition Decision: 03/26/17 Time of Disposition Decision: 20:00 DIAGNOSIS: Chest pain, SOB (shortness of breath) Disposition: ADMITTED INPATIENT 09 Certified Medical Emergency: Emergent Condition: Stable - Critical Care Note This patient required my direct & personal management of CC.: No This chart was documented by the indicated scribe, (Elise Layton Scribe) and accurately reflects the services I performed and decisions made by me, Lyndsey Crandall MD, as attested by the provider's signature.
== END 2017-03-28 10:51 | disposition home or self-care (01) ==
LOC: ED 07:07 → 3N 15:13 → 3S 18:47
PROVIDERS: ADMIT Emergency Medicine; ATTEND Emergency Medicine

== ENCOUNTER 2019-04-23 08:02 | Observation (INO) ==
--- NOTE | 2019-04-23 09:15 | EKG Report ---
Test Performed on : 04/23/2019 08:53:44 AM Test Reason : DIZZINESS Blood Pressure : / mmHG Vent. Rate : 057 BPM Atrial Rate : 057 BPM P-R Int : 142 ms QRS Dur : 092 ms QT Int : 458 ms P-R-T Axes : 054 025 033 degrees QTc Int : 445 ms Sinus bradycardia. Increased R/S ratio in V1, consider early transition or posterior infarct Abnormal ECG When compared with ECG of 05-JAN-2019 19:26, Vent. rate has decreased BY 31 BPM Unconfirmed Result
[2019-04-23 09:49] LABS: BASO# 0.01 X1000 (0.0-0.2); BASO% 0.5 % (0.0-0.8); EOS# 0.09 X1000 (0.0-0.7); EOS% 4.2 % (0.0-10.0); HEMATOCRIT 35.5 % (37.0-47.0); HEMOGLOBIN 11.9 g/dL (12.0-16.0); IMM GRAN# 0.06 X1000 (0.0-0.04); IMM GRAN% 2.8 % (0.0-0.5); LYMPH# 0.69 X1000 (1.2-3.4); LYMPH% 32.2 % (20.5-51.1); MCH 26.3 PG (27-31); MCHC 33.5 g/dL (33-37); MCV 78.5 FL (81-99); MONO# 0.29 X1000 (0.11-0.59); MONO% 13.6 % (1.7-9.3); MPV 11.2 FL (7.4-10.4); NEUT% 46.7 % (42.2-75.2); PLT 156 X1000 (130-400); RBC 4.52 XMIL (4.2-5.4); RDW 16.3 % (11.5-14.5); WBC 2.14 X1000 (4.8-10.8)
[2019-04-23] MEDS ORDERED: ANTIVERT PO ONE (10:14)
--- NOTE | 2019-04-23 10:29 | Diag Imaging Result Doc PS360 ---
EXAM: CT HEAD W/O CONTRAST 04/23/2019 HISTORY: dizziness TECHNIQUE: This exam was performed using automated exposure control, adjustment of mA or kV according to patient size, and/or use of iterative reconstruction technique. COMMENT: There is mucosal thickening and a mucous retention cyst in the right maxillary sinus. Otherwise paranasal sinuses are clear and the calvarium is intact. There is no evidence of intracranial mass effect, bleed, or abnormal extra-axial fluid collection. There is a calcification in the globus pallidus on the left. Compared to 06/22/2018 the appearance the brain has not changed significantly. IMPRESSION: No evidence of acute intracranial disease. Electronically signed by Nitesh Lopez 04/23/2019 10:27 AM
[2019-04-23 10:47] LABS: INR 1.77; PROTIME 21.9 Seconds (11.0-16.0)
[2019-04-23 10:50] LABS: AGAP 9; ALB/GLOB RATIO 2.1; ALBUMIN 4.2 g/dL (3.5-5.0); ALKALINE PHOSPHATASE 76 U/L (32-104); BUN 16 mg/dL (8-22); CALCIUM 9.5 mg/dL (8.8-10.2); CHLORIDE 108 mmol/L (98-107); COSMO 284; ESTIMATED GFR > 60; GLUCOSE 101 mg/dL (70-104); GOT 15 U/L (10-30); GPT 10 U/L (10-36); SODIUM 142 mmol/L (136-145); TCO2 25 mmol/L (25-35); TOTAL BILIRUBIN 0.22 mg/dL (0.20-1.00); TOTAL PROTEIN 6.2 g/dL (6.3-8.3)
[2019-04-23 10:56] LABS: PTT 85.2 Seconds (22.3-41.8)
[2019-04-23 11:02] LABS: URINE SOURCE CLEAN CATCH
[2019-04-23 11:15] LABS: BILIRUBIN URINE NEGATIVE (NEGATIVE); BLOOD URINE NEGATIVE (NEGATIVE); COLOR STRAW; GLUCOSE URINE NEGATIVE (NEGATIVE); KETONE URINE NEGATIVE (NEGATIVE); LEUKOCYTES URINE NEGATIVE (NEGATIVE); NITRITE URINE NEGATIVE (NEGATIVE); PH URINE 6.5; PROTEIN URINE TRACE mg/dL (NEGATIVE); SP GRAVITY URINE 1.008; TURBIDITY URINE CLEAR (CLEAR); UROBILINOGEN URINE NORMAL (NORMAL)
[2019-04-23 11:17] LABS: UR EPITHELIAL CELLS <10 /HPF (<10); URINE BACTERIA NEGATIVE /HPF; URINE RBC <10 /HPF (<10); URINE WBC <10 /HPF (<10)
--- NOTE | 2019-04-23 11:55 | Diag Imaging Result Doc PS360 ---
EXAM: CHEST-1 VIEW 04/23/2019 HISTORY: chest pain, sob TECHNIQUE: AP portable upright at 1147 COMMENT: The inspiration is better than on 01/05/2019. There are atelectatic changes in both lung bases which are probably slightly improved since the previous study. There is cardiomegaly. IMPRESSION: Bibasilar atelectasis and cardiomegaly. Electronically signed by Nitesh Lopez 04/23/2019 11:53 AM
--- NOTE | 2019-04-23 12:10 | PROVIDER DOCUMENTATION ---
This chart was entered by Estefany Herring Scribe, acting as scribe for Vikram Nix MD. HPI-Chest Pain - General Chief Complaint: Dizziness Stated Complaint: DIZZINESS/CHEST PAIN Time Seen by Provider: 04/23/19 08:27 Source: patient Allergies/Adverse Reactions: Patient Allergies Allergy/AdvReac Type Severity Reaction Status Date / Time BIANKA Inhibitors Allergy Severe bradycardia Verified 04/23/19 09:09 naproxen Allergy Severe bleeding Verified 04/23/19 09:09 Penicillins Allergy Severe SWELLING Verified 04/23/19 09:09 Sulfa (Sulfonamide Allergy Severe SWELLING Verified 04/23/19 09:09 Antibiotics) [Sulfa(Sulfonamide Antibiotics)] propoxyphene napsylate * Allergy Intermediate SWELLING Verified 04/23/19 09:09 [From DcN 100] Home Medications: Home Medication List Medication Instructions Recorded Confirmed Last Taken Type Lorazepam 1 mg PO QHS 03/23/17 04/23/19 06/21/18 22:00 History Warfarin Sodium 4 mg PO QHS 03/23/17 04/23/19 06/21/18 21:00 History Diltiazem HCl [Cartia Xt] 180 mg PO QAM 01/09/18 04/23/19 06/22/18 08:00 History Promethazine [Phenergan] 25 mg PO Q6H PRN PRN 04/18/18 04/23/19 Unknown History Hydrocodone/APAP 7.5 mg/325 mg 1 ea PO Q4H PRN PRN #40 tab 12/26/18 04/23/19 Un known Rx [[place]-7.5] - History of Present Illness-CP Nature of Presenting Problem: Patient is a 78 year old female who presents to the ED after having chest pain and shortness of breath last night. Reports having 2 brief episodes of symptoms last night then symptoms resolved. States having dizziness this morning. Denies having any falls. Location: reports: other (left side chest) Chest Pain Radiation: reports: other (right side chest) Quality of Pain: reports: aching Severity in ED: mild Onset/Duration: last night Timing: gone now Context/Activities at Onset: reports: light activity Modifying Factors: improves with: nothing Associated Symptoms: reports: shortness of breath Similar Symptoms Previously?: Yes Recently Seen Here or By Another Healthcare Provider: No Review of Systems - Adult - REVIEW OF SYSTEMS - ADULT Constitutional: reports: no symptoms reported. denies: chills, fever, fatique Eyes: reports: no symptoms reported Ears, Nose, Mouth & Throat: reports: no symptoms reported Cardiovascular: reports: no symptoms reported. denies: chest pain, heart murmur, irregular heart rate Respiratory: reports: no symptoms reported. denies: cough, shortness of breath, wheezing Gastrointestinal: reports: no symptoms reported Genitourinary: reports: no symptoms reported Musculoskeletal: reports: no symptoms reported Integumentary: reports: no symptoms reported Neurological: reports: see HPI, dizziness/vertigo (dizziness). denies: headache /migraines, seizure, syncope Psychiatric: reports: no symptoms reported Endocrine: reports: no symptoms reported Hematologic/Lymphatic: reports: no symptoms reported Allergic/Immunologic: reports: no symptoms reported All Other Systems: Reviewed and Negative Past History - Adult - PAST MEDICAL HISTORY-ADULT Review of Records: reports: Old Records Reviewed, Nursing Assessment Review, Medications Reviewed, Social history reviewed & non-contributory. Major Childhood Illnesses: reports: history unknown Cardiovascular: reports: A-Fib, HTN, other (DVT) Respiratory: reports: denies history Gastrointestinal: reports: GERD Obstetrical/Gynecological: reports: denies history Genitourinary: reports: denies history Musculoskeletal: reports: denies history Neurological: reports: denies history Psychiatric: reports: depression Endocrine/Immune: reports: Leukemia (in relapse) Other Conditions: reports: cataract/glaucoma, other - PRIOR SURGERIES/PROCEDURES Surgical/Procedure History: reports: appendectomy, cholecystectomy, hysterectomy , indwelling device (port a cath left anterior chest wall), other (cataract removal; IVC filter) - PRIOR HOSPITALIZATIONS Prior Hospitalizations: reports: none - IMMUNIZATION STATUS Childhood Immunizations: See Nurse Assessment Flu Vaccine: See Nurse Assessment - FAMILY HISTORY Family History: reviewed, not pertinent - SOCIAL HISTORY Smoking: denies Substance Use: denies Living Situation: family Physical Exam-General - PHYSICAL EXAM-ADULT Initial Vital Signs Reviewed: Yes - CONSTITUTIONAL General Appearance: alert, no apparent distress. negative: lethargic - HEAD, EARS, NOSE, MOUTH & THROAT HENMT: normocephalic/atraumatic, moist mucous membranes. negative: hearing deficit - RESPIRATORY Respiratory: chest non-tender, lungs clear, normal breath sounds. negative: rales, stridor - CARDIOVASCULAR Cardiovascular: normal peripheral pulses, regular rate, rhythm. negative: tachycardia, systolic murmur - GASTROINTESTINAL (ABDOMEN) Abdominal Exam: normal bowel sounds, non tender, soft. negative: rebound - MUSCULOSKELETAL Extremity: non-tender, normal inspection. negative: deformity - SKIN Integumentary: normal color, normal turgor, warm/dry. negative: cyanosis, ecchymosis, erythema, jaundice - NEUROLOGIC Neurologic: grossly normal. negative: aphasia, facial droop - PSYCHIATRIC Psych/Mental Status: normal mood/affect, oriented x 3. negative: anxious - HEART Score HEART Score: History: Slightly Suspicious HEART Score: ECG: Normal HEART Score: Age: > or = 65 Years HEART Score: Risk Factors for Atherosclerotic Disease: 1 or 2 Risk Factors HEART Score: Troponin: < or = Normal Limit Total HEART Score:: 3 Progress - PLAN OF CARE/RESULTS Progress/Plan/Lab Results: Vital Signs - 8 hr 04/23/19 08:13 04/23/19 08:33 04/23/19 08:40 Temperature 97.7 F Pulse Rate 63 56 L Respiratory Rate 18 21 Blood Pressure 151/90 O2 Sat by Pulse Oximetry 98 96 97 04/23/19 08:50 04/23/19 08:59 04/23/19 09:00 Temperature Pulse Rate 58 L 59 L 58 L Respiratory Rate 14 21 19 Blood Pressure 141/83 O2 Sat by Pulse Oximetry 97 98 97 04/23/19 09:02 04/23/19 09:10 04/23/19 09:20 Temperature Pulse Rate 55 L 58 L Respiratory Rate 19 22 20 Blood Pressure 134/74 O2 Sat by Pulse Oximetry 97 97 96 04/23/19 09:30 04/23/19 09:32 04/23/19 09:40 Temperature Pulse Rate 57 L 58 L 54 L Respiratory Rate 21 24 19 Blood Pressure 156/85 O2 Sat by Pulse Oximetry 97 97 97 04/23/19 09:50 04/23/19 11:02 04/23/19 11:32 Temperature Pulse Rate 58 L 57 L 52 L Respiratory Rate 21 14 16 Blood Pressure 145/77 134/68 O2 Sat by Pulse Oximetry 98 96 95 04/23/19 12:02 Temperature Pulse Rate 52 L Respiratory Rate 17 Blood Pressure 137/64 O2 Sat by Pulse Oximetry 96 Laboratory Results - last 24 hr 04/23/19 04/23/1919 09:00 09:35 09:35 WBC 2.14 L RBC 4.52 Hgb 11.9 L Hct 35.5 L MCV 78.5 L MCH 26.3 L MCHC 33.5 RDW Std Deviation 16.3 H Plt Count 156 MPV 11.2 H Immature Gran % (Auto) 2.8 H Neut % (Auto) 46.7 Lymph % (Auto) 32.2 [place] % (Auto) 13.6 H Eos % (Auto) 4.2 Baso % (Auto) 0.5 Immature Gran # (Auto) 0.06 H Neut # (Auto) 1.00 L Lymph # (Auto) 0.69 L [place] # (Auto) 0.29 Eos # (Auto) 0.09 Baso # (Auto) 0.01 PT INR PTT (Actin FS) Sodium 142 Potassium 4.0 Chloride 108 H Carbon Dioxide 25 Anion Gap 9 BUN 16 Creatinine 1.0 H Estimated GFR/1.73 m2 > 60 BUN/Creatinine Ratio 16 Glucose 101 POC Glucose 85 Calculated Osmolality 284 Calcium 9.5 Total Bilirubin 0.22 AST 15 ALT 10 Alkaline Phosphatase 76 Troponin T Total Protein 6.2 L Albumin 4.2 Globulin 2.0 Albumin/Globulin Ratio 2.1 Urine Source Urine Color Urine Turbidity Urine pH Ur Specific [place] Urine Protein Ur Glucose (Stick) Ur Ketones (Stick) Urine Blood Urine Nitrite Urine Bilirubin Urobilinogen Dipstick Urine Leukocytes Urine WBC (Auto) Urine RBC (Auto) U Epithel Cells (Auto) Urine Bacteria (Auto) 04/23/19 04/23/19 04/23/19 09:35 09:35 10:52 WBC RBC Hgb Hct MCV MCH MCHC RDW Std Deviation Plt Count MPV Immature Gran % (Auto) Neut % (Auto) Lymph % (Auto) [place] % (Auto) Eos % (Auto) Baso % (Auto) Immature Gran # (Auto) Neut # (Auto) Lymph # (Auto) [place] # (Auto) Eos # (Auto) Baso # (Auto) PT 21.9 H INR 1.77 PTT (Actin FS) 85.2 H Sodium Potassium Chloride Carbon Dioxide Anion Gap BUN Creatinine Estimated GFR/1.73 m2 BUN/Creatinine Ratio Glucose POC Glucose Calculated Osmolality Calcium Total Bilirubin AST ALT Alkaline Phosphatase Troponin T < 0.010 Total Protein Albumin Globulin Albumin/Globulin Ratio Urine Source CLEAN CATCH Urine Color STRAW Urine Turbidity CLEAR Urine pH 6.5 Ur Specific [place] 1.008 Urine Protein TRACE A Ur Glucose (Stick) NEGATIVE Ur Ketones (Stick) NEGATIVE Urine Blood NEGATIVE Urine Nitrite NEGATIVE Urine Bilirubin NEGATIVE Urobilinogen Dipstick NORMAL Urine Leukocytes NEGATIVE Urine WBC (Auto) <10 Urine RBC (Auto) <10 U Epithel Cells (Auto) <10 Urine Bacteria (Auto) NEGATIVE Orders Category Date Time Status OK to use Port-A-Cath ORDERED Care 04/23/19 09:19 Active CHEST-1 VIEW [RAD] Stat Exams 04/23/19 11:[address] HEAD W/O CONTRAST [CT] Stat Exams 04/23/19 08:27 Completed CBC WITH DIFF [HEME] Stat Lab 04/23/19 09:35 Completed COMPREHENSIVE METABOLIC PANEL [CHEM] Stat Lab 04/23/19 09:35 Completed PROTIME WITH INR [COAG] Stat Lab 04/23/19 09:35 Completed PTT [COAG] Stat Lab 04/23/19 09:35 Completed TROPONIN T Stat Lab 04/23/19 09:35 Completed URINALYSIS W/POSS RFLX CULT [URINALYSIS] Stat Lab 04/23/19 10:52 Completed Meclizine [Antivert] Med 04/23/19 10:14 Discontinued 25 mg PO NOW ONE EKG [EKG] Stat Ther 04/23/19 08:27 Draft Result Diagrams: 04/23/19 09:35 04/23/19 09:35 - EKG 1 Time of EKG reading by physician:: 08:53 EKG Read and Signed by:: Vikram Nix EKG Interpretation (*Must complete 3 of following elements*): Abnormal Rate: 57 Rhythm: sinus bradycardia Cosby: normal HI Interval: normal Comments: increased R/S ratio in V1, consider early transition or posterior infarct - XRAY 1 XRAY Study: Chest Impression: See EMR Report (EXAM: CHEST-1 VIEW 04/23/2019 HISTORY: chest pain, sob TECHNIQUE: AP portable upright at 1147 COMMENT: The inspiration is better than on 01/05/2019. There are atelectatic changes in both lung bases which are probably slightly improved since the previous study. There is cardiomegaly. IMPRESSION: Bibasilar atelectasis and cardiomegaly. Electr onically signed by Nitesh Lopez 04/23/2019 11:53 AM 04/23/19 1153 Interpreting Physician: Nitesh Lopez MD Dictated Date/Time: 04/23/19 1152 cc: Vikram Nix MD; Brendon Chacko MD) - CT/MRI 1 CT Study: Head Impression: See EMR Report ( EXAM: CT HEAD W/O CONTRAST 04/23/2019 HISTORY: dizziness TECHNIQUE: This exam was performed using automated exposure control, adjustment of mA or kV according to patient size, and/or use of iterative reconstruction technique. COMMENT: There is mucosal thickening and a mucous retention cyst in the right maxillary sinus. Otherwise paranasal sinuses are clear and the calvarium is intact. There is no evidence of intracranial mass effect, bleed, or abnormal extra-axial fluid collection. There is a calcification in the globus pallidus on the left. Compared to 06/22/2018 the appearance the brain has not changed significantly. IMPRESSION: No evidence of acute intracranial disease. Electronically signed by Nitesh Lopez 04/23/2019 10:27 AM 04/23/19 1027 Interpreting Physician: Nitesh Lopez MD Dictated Date/Time: 04/23/19 1026 cc: Vikram Nix MD; Brendon Chacko MD) - CONSULTS/PCP/HOSPITALIST Notification #1 *Consult/PCP/Hospitalist*: Dr Chacko Time Discussed: 12:10 Consult Disposition: Will see in ED, Admit Departure - Departure Date of Disposition Decision: 04/23/19 Time of Disposition Decision: 12:10 DIAGNOSIS: SOB (shortness of breath), Chest pain, Symptomatic bradycardia Disposition: ADMITTED INPATIENT 09 Certified Medical Emergency: Emergent Condition: Good Referrals and Follow-Ups: Brendon Chacko MD [Primary Care Provider] - - Critical Care Note This patient required my direct & personal management of CC.: No Attestation - Physician/ CHRIS Attestation Patient care was provided by Advanced Practice Provider:: No The physician spent face to face time with patient:: Yes Advanced Practice Provider documentation review:: Supervising physician onsite and consulted in the evaluation and care of this patient. The physician did have a face to face encounter with the patient. This chart was documented by the isa scribe, (Estefany Herring Scribe) and accurately reflects the services I performed and decisions made by me, Vikram Nix MD, as attested by the provider's signature.
--- NOTE | 2019-04-23 13:20 | HISTORY AND PHYSICAL ---
HISTORY: This is an 78-year-old who is a patient of mine for over 20 years. She stated that she woke up at about 1:00 this morning. She felt fine yesterday, woke up about 1:00 this morning and felt short of breath. She said she has never done that before. She had some sharp pains shooting from the left shoulder down across her chest. No pain in her jaw or her distal left arm. There is no pressure sensation. She got a drink of water, and went to bed. When she woke up this morning, she felt real dizzy and it was not spinning dizzy, it just felt lightheaded and with just a little bit of nausea. PAST MEDICAL HISTORY: 1. She has history of CLL, which I think is in remission at this time and followed by Dr. Hendricks. 2. Hypertension. 3. Osteoarthritis. 4. DVT in the past. 5. Osteopenia. 6. Hypertension. 7. Gastric reflux disease. 8. History of atrial fibrillation. 9. She has had a history of angioedema in the past. I think related to BIANKA inhibitors and nonsteroidal anti-inflammatories. 10. She has significant scoliosis. She has L2-L3 foramina stenosis, L3-4 disk bulge, and evidence of significant stenosis of L4-5, anterior listhesis grade 1 at L4-5. She has had a posterior upper shoulder pain in the past. PAST SURGICAL HISTORY: 1. Status post appendectomy. 2. Hysterectomy. 3. She has had heart catheterization in 2013. FAMILY HISTORY: Positive for heart disease and breast cancer. SOCIAL HISTORY: She is a and took care of her for many years. She does not smoke or drink any alcohol. No illicit drugs. LABORATORY DATA: White count 2140, hematocrit 35, hemoglobin 11.9, and platelet count 156,000. Sodium 142, potassium 4.0, chloride 108, BUN 16, and creatinine 1.0. Total protein was 6.2 and albumin 4.2. Troponin less than 0.01. Her EKG showed sinus bradycardia, but her rate has been between 50s and upper 60s, and it appears sinus rhythm. MEDICATIONS: Her list of medications, she is on Cardizem which is diltiazem CD. Cardia XT is the name of it 180 mg every morning. She takes hydrocodone 7.5 p.r.n. pain, lorazepam 1 mg at bedtime, and she is on Coumadin 4 mg daily. Her ProTime was therapeutic at 21.9, INR 1.77, and PTT was 85. ASSESSMENT AND PLAN: 1. I am not sure what is causing this dizziness. She does not have significant hypotension, and she does not describe really vertiginous type symptoms. I will observe her and check cardiac enzymes. We will check her T4 and TSH. I will back down on the Cardizem to 120 mg and, we will see how we do. 2. Chronic lymphocytic leukemia. Her blood counts look pretty good. 3. She is in sinus rhythm. I do not believe this is symptomatic bradycardia, but because her rate did get in the 50s I am going to cut down on the Cardizem. 4. Scoliosis. Significant degenerative disk disease in the lumbar and thoracic spine. Note, her CT of her head without contrast no evidence of acute intracranial disease. cc: Brendon Chacko MD
[2019-04-23] MEDS ORDERED: PHENERGAN PO PRN (13:58)
[2019-04-23] MEDS: NS 1,000 ML IV SCH (14:44)
[2019-04-23] MEDS: TYLENOL PO PRN ×2 (17:03→23:55)
[2019-04-23] MEDS: ATIVAN PO SCH (20:20)
[2019-04-23] MEDS: COUMADIN PO SCH (20:20)
[2019-04-24] MEDS: NS 1,000 ML IV SCH ×2 (02:41→14:45)
--- NOTE | 2019-04-24 07:38 | EKG Report ---
Test Performed on : 04/24/2019 07:31:24 AM Test Reason : chest pain Blood Pressure : / mmHG Vent. Rate : 058 BPM Atrial Rate : 058 BPM P-R Int : 134 ms QRS Dur : 100 ms QT Int : 456 ms P-R-T Axes : 070 065 039 degrees QTc Int : 447 ms Sinus bradycardia. Nonspecific T wave abnormality Abnormal ECG When compared with ECG of 23-APR-2019 08:53, (Unconfirmed) No significant change was found Confirmed by Artur Emery MD ([id number]) on 04/27/2019 11:32:54 AM
[2019-04-24] MEDS: PRILOSEC PO SCH (09:01)
[2019-04-24] MEDS: CARDIZEM LA PO SCH (09:02)
[2019-04-24] MEDS: TYLENOL PO PRN (09:06)
[2019-04-24] MEDS ORDERED: NORCO-10 PO PRN (09:44)
[2019-04-24] MEDS: ZOFRAN IV PRN ×2 (10:46→20:14)
--- NOTE | 2019-04-24 17:02 | PROGRESS NOTE ---
DATE: 04/24/2019 SUBJECTIVE: Ms. Solis is more swimmy headed, and this time, she is describing more vertiginous symptoms. Her blood pressures have looked good. She does not appear dry. She tried to get a little bit of food down, but she did have some nausea. No chest pain. No focal neurologic changes. Feels like her vision is a little swimmy as well. She has a little bit of lateral nystagmus. OBJECTIVE: Temperature 98 degrees, pulse 57, respirations 20, blood pressure 141/61. Pupils are equal and round. Lungs are clear in all lung lombardi. Cardiovascular: Regular rhythm and rate without murmur or S3. Urine output: 700 mL. DIAGNOSTIC STUDIES: Chest x-ray when she came in yesterday: Bibasilar atelectasis and some cardiomegaly. ASSESSMENT AND PLAN: 1. It sounds like this is vertigo. I suspect benign positional vertigo. We will put her on some Antivert at a high dose 25 mg 4 times a day and continue her fluids. I did cut down her Cardizem. 2. Chronic atrial fibrillation. I cut down her Cardizem. Her heart rate was in the 50s in the emergency room. Heart rate is still in the upper 50s. Blood pressure between 112 to 141 over 51 to 62. 3. Chronic lymphocytic leukemia. Her counts look stable. White count was 2140, hematocrit 35, platelet count 156,000. Electrolytes were unremarkable. Blood sugars have looked well controlled. They are in the low 100s. She is on Coumadin and her prothrombin time was 21 so we will put her on some Antivert and we will start her on some physical therapy and see how we do. cc: Brendon Chacko MD MTDD
[2019-04-24] MEDS: ANTIVERT PO SCH ×2 (17:57→22:44)
[2019-04-24] MEDS: ATIVAN PO SCH (21:29)
[2019-04-24] MEDS: COUMADIN PO SCH (21:29)
[2019-04-25] MEDS: NS 1,000 ML IV SCH (02:54)
[2019-04-25] MEDS: ANTIVERT PO SCH (05:37)
--- NOTE | 2019-04-25 09:05 | PROGRESS NOTE ---
DATE: 04/25/2019 SUBJECTIVE: Ms Solis says she feels a little better. She is walking. The Antivert does make her sleepy. She is not hurting. She had a pretty good sleep last night. OBJECTIVE: Vital Signs: Temperature 97.7 degrees, pulse 56, respirations 16, blood pressure 133/61. Eyes: Pupils are equal and round. Lungs: Lungs are clear in all lung lombardi. Cardiovascular exam: Regular rhythm and rate without murmur or S3. Abdomen: Soft. Skin: Skin is warm and dry. : Urine output 2400 mL. Blood sugar 163, 136, 124. ASSESSMENT AND PLAN: 1. She has some vertigo. I suspect this is benign positional vertigo. Antivert seems to be helping. I may cut that down to 12.5 mg three times a day, and see how she does with physical therapy. Maybe go home today. 2. Chronic atrial fibrillation, rate is controlled. 3. Chronic lymphocytic leukemia. 4. Scoliosis and osteoarthritis. Her pulse is 56 to 60. I did cut down the Cardizem to 120 mg long-acting daily. cc: Brendon Chacko MD
[2019-04-25] MEDS: PRILOSEC PO SCH (10:16)
[2019-04-25] MEDS: CARDIZEM LA PO SCH (10:17)
[2019-04-25 12:00] VITALS: BP 156/62
--- NOTE | 2019-04-25 13:33 | DISCHARGE SUMMARY ---
ADMISSION DATE: 04/23/2019 DISCHARGE DATE: 04/25/2019 HISTORY OF PRESENT ILLNESS: Ms. Solis was admitted on 04/23/2019, discharged on 04/25/2019. She is a patient of mine for many years. She is 78 years old. She woke up about 1 o'clock on the morning of admission, on 04/23/2019, and felt swimmy-headed and just felt dizzy. Originally did not feel like it was somewhat vertigo, just felt like she was nauseated and swimmy-headed. Admitted her to observation. Lab was really unremarkable. No sign of infection. She denied fever, chills, pleuritic pain. No real shortness of breath. No chest pain or tachy palpitations. No gross hematuria or dysuria. PAST MEDICAL HISTORY: 1. History of CLL, which is in remission at this point. Her CBC looks stable. Her white count is 2,140, hematocrit 35, platelet count 156,000. Blood sugars remained stable. Her electrolytes on admission showed sodium 142, potassium 4.0, chloride 108, BUN 16, creatinine 1.0. Total protein 6.2. 2. She has a history of hypertension. 3. Osteoarthritis. 4. DVT in the past. 5. Osteopenia. 6. Hypertension. 7. Gastroesophageal reflux. 8. History of atrial fibrillation, which is chronic. 9. She has had a history of angioedema in the past, we think related BIANKA inhibitors and possibly nonsteroidal anti-inflammatories. 10. Significant lumbar and thoracic lumbar stenosis, with scoliosis as well. PAST SURGICAL HISTORY: 1. Status post appendectomy. 2. Hysterectomy. 3. Heart catheterization 11/28, at that time, no significant coronary artery disease. COURSE: The patient continued to feel poor, with nausea. I added some Antivert to the regimen. CT of the head done on admission, no evidence of any acute intracranial process. No acute focal neurologic deficits seen on exam. EKG was unremarkable. T4, TSH, electrolytes, B12, and folate were all unremarkable. I did put her on Antivert, and I decreased her Cardizem because she was having a heart rate in the 50s and her blood pressure remained well controlled so I will keep her on Cardizem. I will let her go home on 04/25/2019. DISCHARGE MEDICATIONS: She can still take Tylenol P.M. I cut her Cardizem down to 120 mg a day, it is Cardizem long-acting. I gave her some Antivert to use as needed. She will continue her Coumadin at 4 mg. Note that we did check her pro time and it looked good at 21, with an INR of 1.77. PLAN: I will follow her back in my office in a couple of weeks. cc: Brendon Chacko MD
[2019-04-25] MEDS ORDERED: ANTIVERT PO SCH (14:00)
== END 2019-04-25 14:01 | disposition home or self-care (01) ==
LOC: 3N 08:02 → ED 08:02
PROVIDERS: ADMIT Emergency Medicine; ATTEND Emergency Medicine
CPT/HCPCS: 70450; 71010; 71045; 80053; 81001; 82948; 83735; 84443; 84484; 85025; 85610; 85730; 93005; 93010; 97162; A9270; J2405; J7030; XXXXX

== ENCOUNTER 2019-06-04 11:19 | Inpatient (IN) ==
[2019-06-04] MEDS ORDERED: MERREM 1 GM in NS 50 ML IV ONE (11:53)
[2019-06-04] MEDS ORDERED: TORADOL IV ONE (11:53)
[2019-06-04] MEDS ORDERED: NS 1,000 ML IV ONE (11:53)
[2019-06-04] MEDS ORDERED: PEPCID IV ONE (11:54)
[2019-06-04] MEDS ORDERED: VANCOMYCIN 1 GM/NS 1 GM/250 ML IVPB IV ONE (11:54)
[2019-06-04] MEDS ORDERED: SODIUM CHLORIDE 0.9% INJ ONE (11:54)
[2019-06-04] MEDS ORDERED: BENADRYL IV ONE (11:54)
[2019-06-04] MEDS ORDERED: SOLU-MEDROL IV ONE (11:54)
--- NOTE | 2019-06-04 12:13 | Diag Imaging Result Doc PS360 ---
CHEST-1 VIEW - 06/04/2019 INDICATION: FEVER COMPARISON: 04/23/2019 FINDINGS: Stable left chest port. Lung volumes are severely low. Stable upsloping of the left hemidiaphragm. Stable minimal patchy atelectasis in the lung bases. Heart size is probably top normal. IMPRESSION: Nonspecific findings. Electronically signed by Colin Martel 06/04/2019 12:11 PM
[2019-06-04 13:04] LABS: URINE SOURCE CLEAN CATCH
[2019-06-04 13:07] LABS: BASO# 0.02 X1000 (0.0-0.2); BASO% 1.3 % (0.0-0.8); EOS# 0.13 X1000 (0.0-0.7); EOS% 8.3 % (0.0-10.0); HEMATOCRIT 33.6 % (37.0-47.0); HEMOGLOBIN 11.1 g/dL (12.0-16.0); LYMPH# 0.62 X1000 (1.2-3.4); LYMPH% 39.4 % (20.5-51.1); MCH 25.3 PG (27-31); MCV 76.5 FL (81-99); MPV 11.1 FL (7.4-10.4); PLT 162 X1000 (130-400); RBC 4.39 XMIL (4.2-5.4); RDW 15.6 % (11.5-14.5); WBC 1.57 X1000 (4.8-10.8)
[2019-06-04 13:10] LABS: BILIRUBIN URINE NEGATIVE (NEGATIVE); BLOOD URINE NEGATIVE (NEGATIVE); COLOR YELLOW; GLUCOSE URINE NEGATIVE (NEGATIVE); KETONE URINE NEGATIVE (NEGATIVE); LEUKOCYTES URINE NEGATIVE (NEGATIVE); NITRITE URINE NEGATIVE (NEGATIVE); PROTEIN URINE NEGATIVE (NEGATIVE); SP GRAVITY URINE 1.011; TURBIDITY URINE CLEAR (CLEAR); UROBILINOGEN URINE NORMAL (NORMAL)
[2019-06-04 13:11] LABS: UR EPITHELIAL CELLS <10 /HPF (<10); URINE BACTERIA NEGATIVE /HPF; URINE RBC <10 /HPF (<10); URINE WBC <10 /HPF (<10)
[2019-06-04 13:20] LABS: INR 1.89; PROTIME 22.1 Seconds (11.0-16.0)
[2019-06-04 13:26] LABS: PTT 105.3 Seconds (22.3-41.8)
[2019-06-04 13:50] LABS: EOS 8 % (1-10); LYMPHS 32 % (21-51); MONO 60 % (1-9)
[2019-06-04 13:56] LABS: SEGS 0 % (42-75)
[2019-06-04 13:57] LABS: ALBUMIN 4.2 g/dL (3.5-5.0); CALCIUM 9.6 mg/dL (8.8-10.2); CREATININE 1.4 mg/dL (0.5-0.9); TOTAL BILIRUBIN 0.2 mg/dL (0.20-1.00); TOTAL PROTEIN 6.3 g/dL (6.3-8.3)
[2019-06-04] MEDS ORDERED: ZOFRAN IV ONE (14:03)
[2019-06-04] MEDS ORDERED: MORPHINE IV ONE (14:03)
--- NOTE | 2019-06-04 14:21 | PROVIDER DOCUMENTATION ---
This chart was entered by Estefany Herring Scribe, acting as scribe for Archie Cornell MD. HPI-Fever - General Chief Complaint: SEPSIS ALERT - D Stated Complaint: dr. ventura sent - abnormal labs Time Seen by Provider: 06/04/19 11:29 Source: patient Allergies/Adverse Reactions: Patient Allergies Allergy/AdvReac Type Severity Reaction Status Date / Time BIANKA Inhibitors Allergy Severe bradycardia Verified 04/23/19 09:09 naproxen Allergy Severe bleeding Verified 04/23/19 09:09 Penicillins Allergy Severe SWELLING Verified 04/23/19 09:09 Sulfa (Sulfonamide Allergy Severe SWELLING Verified 04/23/19 09:09 Antibiotics) [Sulfa(Sulfonamide Antibiotics)] propoxyphene napsylate * Allergy Intermediate SWELLING Verified 04/23/19 09:09 [From [facility]] Home Medications: Home Medication List Medication Instructions Recorded Confirmed Last Taken Type Lorazepam 1 mg PO QHS 03/23/17 04/23/19 06/21/18 22:00 History Warfarin Sodium 4 mg PO QHS 03/23/17 04/23/19 06/21/18 21:00 History Hydrocodone/APAP 7.5 mg/325 mg 1 ea PO Q4H PRN PRN #40 tab 12/26/18 04/23/19 Unknown Rx [[place]-7.5] Acetaminophen [Tylenol] 650 mg PO Q6H PRN PRN tab 04/25/19 Unknown Rx Diltiazem L.a. [Cardizem LA] 120 mg PO QAM 30 Days #30 tab 04/25/19 Unknown Rx Hydrocodone/APAP 10 mg/325 mg 1 ea PO Q6H PRN PRN tab 04/25/19 Unknown Rx [[place]-10] Meclizine [Antivert] 12.5 mg PO Q8H 10 Days #30 tab 04/25/19 Unknown Rx - History of Present Illness-Fever Nature of Presenting Problem: Patient is a 78 year old female who presents with fever. States fever started last night. Report being seen at Dr. Ventura's office prior to arrival and informed she is dehydrated. History of chronic lymphocytic leukemia with last chemo treatment in August of 2018. Denies cough, nausea, vomiting, diarrhea, and urinary symptoms. Fever Severity/Quality: reports: greater than 102 F Onset/Duration: reports: last night Timing: reports: still present Severity: reports: mild Context: reports: other (chronic lymphocytic leukemia) Recent Illness?: reports: none Fever Therapy DIRECTOR COMMUNITY ORGANIZATION: Initiated Tylenol Associated Symptoms: reports: denies symptoms Similar Symptoms Previously?: Yes Recently seen or treated by another doctor?: Yes - Glascow Coma Score Best Eye Response (Priyank): (4) open spontaneously Best Verbal Response (Priyank): (5) oriented Best Motor Response ([place]): (6) obeys commands [place] Total: 15 Review of Systems - Adult - REVIEW OF SYSTEMS - ADULT Constitutional: reports: see HPI, fever. denies: chills, fatique Eyes: reports: no symptoms reported Ears, Nose, Mouth & Throat: reports: no symptoms reported Cardiovascular: reports: no symptoms reported Respiratory: reports: no symptoms reported. denies: cough, shortness of breath, wheezing Gastrointestinal: reports: no symptoms reported. denies: diarrhea, nausea, vomiting Genitourinary: reports: no symptoms reported. denies: dysuria, hematuria, urinary retention Musculoskeletal: reports: no symptoms reported Integumentary: reports: no symptoms reported Neurological: reports: no symptoms reported Psychiatric: reports: no symptoms reported Endocrine: reports: no symptoms reported Hematologic/Lymphatic: reports: no symptoms reported Allergic/Immunologic: reports: no symptoms reported All Other Systems: Reviewed and Negative Past History - Adult - PAST MEDICAL HISTORY-ADULT Review of Records: reports: Nursing Assessment Review, Medications Reviewed, Social history reviewed & non-contributory. Major Childhood Illnesses: reports: history unknown Cardiovascular: reports: A-Fib, HTN, other (DVT) Respiratory: reports: denies history Gastrointestinal: reports: GERD Obstetrical/Gynecological: reports: denies history Genitourinary: reports: denies history Musculoskeletal: reports: denies history Neurological: reports: denies history Psychiatric: reports: depression Endocrine/Immune: reports: Leukemia (in relapse) Other Conditions: reports: cataract/glaucoma, other - PRIOR SURGERIES/PROCEDURES Surgical/Procedure History: reports: appendectomy, cholecystectomy, hysterectomy , indwelling device (port a cath left anterior chest wall), other (cataract removal; IVC filter) - PRIOR HOSPITALIZATIONS Prior Hospitalizations: reports: none - IMMUNIZATION STATUS Childhood Immunizations: See Nurse Assessment Flu Vaccine: See Nurse Assessment - FAMILY HISTORY Family History: reviewed, not pertinent - SOCIAL HISTORY Smoking: denies Substance Use: denies Living Situation: family Physical Exam-General - PHYSICAL EXAM-ADULT Initial Vital Signs Reviewed: Yes - CONSTITUTIONAL General Appearance: alert, no apparent distress. negative: lethargic - EYES Eyes: PERRL/EOMI, pink conjunctivae. negative: pale conjunctivae, sunken eyes - HEAD, EARS, NOSE, MOUTH & THROAT HENMT: normocephalic/atraumatic, pharyngeal erythema, TM abnormal (erythema to left), other (mild inflammation of gingiva). negative: angioedema, tonsillar exudate - NECK Neck: non-tender, full range of motion, normal inspection. negative: lymphadenopathy - RESPIRATORY Respiratory: chest non-tender, lungs clear, normal breath sounds. negative: c rackles, rhonchi, stridor - CARDIOVASCULAR Cardiovascular: normal peripheral pulses, regular rate, rhythm. negative: tachycardia, systolic murmur - GASTROINTESTINAL (ABDOMEN) Abdominal Exam: normal bowel sounds, non tender, soft. negative: guarding, rebound - MUSCULOSKELETAL Back Exam: normal inspection, no CVA tenderness. negative: vertebral tenderness Extremity: non-tender, normal inspection. negative: deformity, erythema, swelling - SKIN Integumentary: normal color, normal turgor, warm/dry. negative: diaphoresis, ecchymosis, jaundice, rash - NEUROLOGIC Neurologic: grossly normal. negative: aphasia, facial droop - PSYCHIATRIC Psych/Mental Status: normal mood/affect, oriented x 3. negative: anxious Progress - PLAN OF CARE/RESULTS Progress/Plan/Lab Results: Vital Signs - 8 hr 06/04/19 11:28 Temperature 102.6 F H Pulse Rate 94 H Respiratory Rate 22 Blood Pressure 109/76 O2 Sat by Pulse Oximetry 97 Laboratory Results - last 24 hr 06/04/19 06/04/19 06/04/19 12:40 12:40 12:40 WBC 1.57 L RBC 4.39 Hgb 11.1 L Hct 33.6 L MCV 76.5 L MCH 25.3 L MCHC 33.0 RDW Std Deviation 15.6 H Plt Count 162 MPV 11.1 H Immature Gran % (Auto) 0.0 Neut % (Auto) 0.0 L Lymph % (Auto) 39.4 [place] % (Auto) 51.0 H Eos % (Auto) 8.3 Baso % (Auto) 1.3 H Immature Gran # (Auto) 0.00 Neut # (Auto) 0.00 L* Lymph # (Auto) 0.62 L [place] # (Auto) 0.80 H Eos # (Auto) 0.13 Baso # (Auto) 0.02 Segmented Neutrophils 0 L Lymphocytes 32 Monocytes 60 H Eosinophils 8 PT 22.1 H INR 1.89 PTT (Actin FS) 105.3 H Sodium 137 Potassium 4.0 Chloride 104 Carbon Dioxide 21 L Anion Gap 12 BUN 31 H Creatinine 1.4 H Estimated GFR/1.73 m2 44 BUN/Creatinine Ratio 22 Glucose 123 H Calculated Osmolality 282 Calcium 9.6 Total Bilirubin 0.20 AST 13 ALT 11 Alkaline Phosphatase 71 Creatine Kinase 57 Troponin T Total Protein 6.3 Albumin 4.2 Globulin 2.1 Albumin/Globulin Ratio 2.0 Plasma Lactate Urine Source Urine Color Urine Turbidity Urine pH Ur Specific [place] Urine Protein Ur Glucose (Stick) Ur Ketones (Stick) Urine Blood Urine Nitrite Urine Bilirubin Urobilinogen Dipstick Urine Leukocytes Urine WBC (Auto) Urine RBC (Auto) U Epithel Cells (Auto) Urine Bacteria (Auto) 06/04/19 06/04/19 06/04/19 12:40 12:40 12:40 WBC RBC Hgb Hct MCV MCH MCHC RDW Std Deviation Plt Count MPV Immature Gran % (Auto) Neut % (Auto) Lymph % (Auto) [place] % (Auto) Eos % (Auto) Baso % (Auto) Immature Gran # (Auto) Neut # (Auto) Lymph # (Auto) [place] # (Auto) Eos # (Auto) Baso # (Auto) Segmented Neutrophils Lymphocytes Monocytes Eosinophils PT INR PTT (Actin FS) Sodium Potassium Chloride Carbon Dioxide Anion Gap BUN Creatinine Estimated GFR/1.73 m2 BUN/Creatinine Ratio Glucose Calculated Osmolality Calcium Total Bilirubin AST ALT Alkaline Phosphatase Creatine Kinase Troponin T < 0.010 Total Protein Albumin Globulin Albumin/Globulin Ratio Plasma Lactate 1.3 Urine Source CLEAN CATCH Urine Color YELLOW Urine Turbidity CLEAR Urine pH 5.0 Ur Specific [place] 1.011 Urine Protein NEGATIVE Ur Glucose (Stick) NEGATIVE Ur Ketones (Stick) NEGATIVE Urine Blood NEGATIVE Urine Nitrite NEGATIVE Urine Bilirubin NEGATIVE Urobilinogen Dipstick NORMAL Urine Leukocytes NEGATIVE Urine WBC (Auto) <10 Urine RBC (Auto) <10 U Epithel Cells (Auto) <10 Urine Bacteria (Auto) NEGATIVE Orders Category Date Time Status Cardiac Monitoring DIRECTED Care 06/04/19 11:34 Active IV Insertion ORDERED Care 06/04/19 11:34 Completed Notify MD of + Sepsis Screen NOW Care 06/04/19 11:34 Active Notify Physician As Ordered Care 06/04/19 11:34 Active Straight Catheterization ORDERED Care 06/04/19 11:53 Active CHEST-1 VIEW [RAD] Stat Exams 06/04/19 11:34 Completed BLOOD CULTURE [BLDCUL] Stat Lab 06/04/19 11:36 Ordered BLOOD CULTURE [BLDCUL] Stat Lab 06/04/19 13:06 Results CBC WITH DIFF [HEME] Stat Lab 06/04/19 12:40 Completed CK PROFILE [SP CHEM] Stat Lab 06/04/19 12:40 Completed COMPREHENSIVE METABOLIC PANEL [CHEM] Stat Lab 06/04/19 12:40 Completed DIRECT STREP Stat Lab 06/04/19 14:03 Ordered INFLUENZA SCREEN A/B Stat Lab 06/04/19 14:03 Uncollected LACTATE, PLASMA [CHEM] Lab 06/04/19 14:45 Uncollected LACTATE, PLASMA [CHEM] Lab 06/04/19 17:45 Uncollected LACTATE, PLASMA [CHEM] Q3H Lab 06/04/19 12:40 Completed PROTIME WITH INR [COAG] Stat Lab 06/04/19 12:40 Completed PTT [COAG] Stat Lab 06/04/19 12:40 Completed TROPONIN T Stat Lab 06/04/19 12:40 Completed URINALYSIS W/POSS RFLX CULT [URINALYSIS] Stat Lab 06/04/19 12:40 Completed 0.9% Sodium Chloride Inj [Ns] 1,000 ml Med 06/04/19 11:53 Discontinued IV 999 mls/hr Diphenhydramine [Benadryl] Med 06/04/19 11:54 Discontinued 25 mg IV NOW ONE Famotidine [Pepcid] Med 06/04/19 11:54 Discontinued 20 mg IV NOW ONE Ketorolac [Toradol] Med 06/04/19 11:53 Discontinued 15 mg IV NOW ONE Meropenem [Merrem] 1 gm Med 06/04/19 11:53 Discontinued 0.9% Sodium Chloride Inj [Ns] 50 ml IV NOW Methylprednisolone Sod Succ [Solu-Medrol] Med 06/04/19 11:54 Discontinued 80 mg IV NOW ONE Morphine Med 06/04/19 14:03 Discontinued 4 mg IV NOW ONE Ondansetron [Zofran] Med 06/04/19 14:03 Discontinued 4 mg IV NOW ONE Sodium Chloride 0.9% Med 06/04/19 11:54 Discontinued 5 - 10 ml INJ NOW ONE Vancomycin 1 gm/Ns Med 06/04/19 11:54 Discontinued 1 gm in 250 ml IV NOW Oxygen Device Stat Oth 06/04/19 11:34 Active Result Diagrams: 06/04/19 12:40 06/04/19 12:40 - XRAY 1 XRAY Study: Chest Impression: See EMR Report ( CHEST-1 VIEW - 06/04/2019 INDICATION: FEVER COMPARISON: 04/23/2019 FINDINGS: Stable left chest port. Lung volumes are severely low. Stable upsloping of the left hemidiaphragm. Stable minimal patchy atelectasis in the lung bases. Heart size is probably top normal. IMPRESSION: Nonspecific findings. Electronically signed by Colin Martel 06/04/2019 12:11 PM 06/04/19 1211 Interpreting Physician: Colin Martel MD Dictated Date/Time: 06/04/19 1210 cc: Archie Cornell MD; Brendon Chacko MD) - CONSULTS/PCP/HOSPITALIST Notification #1 *Consult/PCP/Hospitalist*: Dr. Ventura Time Discussed: 11:46 Reason/Comments: Dr. Cornell consulted with Dr. Ventura about patient. #2 Consult: Dr. Emery for Dr. Chacko Time Discussed: 13:59 Reason/Comments: Dr. Cornell consulted with Dr. Emery about patient. Consult Disposition: Admit Departure - Departure Date of Disposition Decision: 06/04/19 Time of Disposition Decision: 14:02 DIAGNOSIS: Neutropenic fever, Fever, Rigors Disposition: ADMITTED INPATIENT 09 Certified Medical Emergency: Emergent Condition: Fair Referrals and Follow-Ups: Brendon Chacko MD [Primary Care Provider] - - Critical Care Note This patient required my direct & personal management of CC.: Yes Total Time (mins): 30 Critical Care Statement: This patient required my direct personal management to treat or rule out processes, the absence of which, could potentiallly result in sudden, clinically significant life or limb threatening deterioration. Attestation - Physician/ CHRIS Attestation The physician spent face to face time with patient:: Yes Advanced Practice Provider documentation review:: Supervising physician onsite and consulted in the evaluation and care of this patient. The physician did have a face to face encounter with the patient. This chart was documented by the indicated scribe, (Estefany Herring Scribe) and accurately reflects the services I performed and decisions made by me, Archie Cornell MD, as attested by the provider's signature.
[2019-06-04] MEDS ORDERED: VANCOMYCIN IV PER PHARMACY MISC SCH (16:05)
[2019-06-04] MEDS ORDERED: NEUPOGEN SUBQ ONE (16:05)
[2019-06-04] MEDS ORDERED: NS 2,000 ML IV ONE (16:05)
[2019-06-04] MEDS ORDERED: DIFLUCAN PO ONE (16:05)
--- NOTE | 2019-06-04 16:12 | HISTORY AND PHYSICAL ---
PRIMARY CARE PHYSICIAN: Brendon Chacko MD CHIEF COMPLAINT: Fever. HISTORY OF PRESENT ILLNESS: An 78-year-old white female with past medical history significant for CLL, hypertension, osteoarthritis, osteopenia, hypertension, reflux disease, atrial fibrillation on anticoagulation, history of angioedema secondary to BIANKA inhibitors/nonsteroidal antiinflammatory agent, and scoliosis, presents for evaluation of above-mentioned symptoms. Pertinent history of present illness began approximately 4 weeks ago. At that time, patient had medications adjusted by Cardiology. Per report, losartan and metoprolol therapy were added. Since that time, patient has developed increasing fatigue and feeling of ill being. Over the course of the last week, patient's condition drastically declined. The patient was seen by Dr. Hendricks yesterday on a routine follow-up for her CLL. While there, CBC was performed. The patient was found to be neutropenic. An injection of Neupogen was provided. Follow-up was arranged for today. This morning, upon waking, patient states she felt worse. Temperature was noted to be 100.8 at home. She went to Dr. Hendricks's office. Upon arrival, the patient was noted to have a rigor with a temperature of 102 degrees. The patient was transferred to the emergency department immediately. Upon arrival, full evaluation was pursued. The patient was found to have a white blood cell count of 1.57, 0% neutrophils. A chest x-ray was performed without evidence of acute disease. Influenza screen returned negative. The patient will be admitted to the hospital for a full evaluation and management of febrile neutropenia with associated sepsis. Of note, additional symptoms include the profound fatigue, mild lower abdominal pain, and painful mouth. The patient notes no change in her bowel movements or urination. Her p.o. intake has been decreased. She denies dysuria, hematuria, pyuria, cough, congestion, shortness of breath, neck pain/neck stiffness, alteration of mental status, rash, sick contacts, chest pains, or palpitations. PAST MEDICAL HISTORY: 1. History of CLL, followed routinely by Dr. Hendricks. 2. Hypertension. 3. Osteoarthritis. 4. History of a deep venous thrombosis. 5. Osteopenia. 6. Reflux disease. 7. Atrial fibrillation, paroxysmal. 8. History of angioedema. 9. Scoliosis. CURRENT MEDICATIONS: 1. Acetaminophen 650 mg every 6 hours as needed. 2. Hydrocodone/APAP 10/325 every 6 hours as needed. 3. Lorazepam 1 mg at bedtime. 4. Meclizine 12.5 mg every 8 hours. 5. Warfarin 4 mg at bedtime. 6. Unknown dosage of losartan and metoprolol. ALLERGIES: Patient states she is allergic to penicillin, Darvocet, and sulfa. SOCIAL HISTORY: The patient is retired. She denies tobacco, alcohol, or illicit drug use. FAMILY HISTORY: Patient's mother passed at age 94 secondary to complications of breast cancer. Patient's father passed at age 85 secondary to an acute myocardial infarction. REVIEW OF SYSTEMS: A 12 point review of systems was performed. Pertinent positives and negatives are noted in the History of Present Illness. PHYSICAL EXAMINATION: VITAL SIGNS: Temperature a 102.6 degrees, heart rate 77, respirations 26, blood pressure is 96/59. GENERAL: Ill-appearing. No acute distress. HEENT: Normocephalic, atraumatic. Pupils equal, round, and reactive to light. Extraocular muscles intact. Sclerae anicteric. [place] conjunctivae. Oral and nasopharynx clear without exudate. NECK: Supple. No lymphadenopathy. No thyromegaly. No bruits auscultated. CARDIOVASCULAR: Regular rate and rhythm. No significant murmurs, rubs, or gallops. PULMONARY: Clear to auscultation bilaterally. ABDOMEN: Soft, nondistended. Tenderness in bilateral lower quadrants without guarding or rebound. Positive bowel sounds. EXTREMITIES: Moves all extremities well. No significant clubbing, cyanosis, or edema. NEUROLOGIC: Cranial nerves 2-12 grossly intact. Motor and sensory grossly intact. PSYCHOLOGIC: Examination is appropriate. DIAGNOSTIC STUDIES: White blood cell count 1.57, hemoglobin 11.1, hematocrit 33.6, platelet count 162,000 with 0% neutrophils, 32% lymphocytes, 60% monocytes, 8% eosinophils. PT 22.1, INR is 1.89, PTT is 105.3. Sodium 137, potassium 4.0, chloride 104, bicarbonate 21, BUN 31, creatinine 1.4, glucose 123, calcium 9.6, total bilirubin 0.20, total protein 6.3, albumin 4.2, alkaline phosphatase 71, AST 13, ALT 11. CK 57, troponin less than 0.010. Plasma lactate 1.3. Urinalysis returned negative. Chest x-ray reveals lung volumes severely low. Stable upsloping of the left hemidiaphragm. Stable minimal patchy atelectasis in the lung bases. ASSESSMENT AND PLAN: An 78-year-old female with past medical history as noted presents for evaluation of fever. Laboratory data is very concerning with 0% neutrophils present. Patient will be admitted to the hospital for full evaluation and management of febrile neutropenia with associated sepsis. 1. Admit to ICU. 2. Febrile neutropenia - We will check blood cultures. We will scan chest, abdomen, and pelvis. We will initiate Meropenem and vancomycin therapy. We will consult Dr. Hendricks and Dr. Moses. We will treat patient's underlying sepsis aggressively with hydration as well. 3. Sepsis - Patient meets criteria. We will check blood cultures as noted. We will provide a 2 L of normal saline bolus followed by 150 mL an hour. We will start antibiotics as described above. We will monitor patient's hemodynamics in the ICU setting. 4. Abdominal pain - This is very nondescript. Examination is not impressive; however, she is uncomfortable in bilateral lower quadrants. We will check a CT scan of the abdomen and pelvis. We will start antibiotic therapy as noted. We will follow this. 5. Oral thrush - We will start patient on oral Diflucan therapy. We will follow this. We will remain aware. The patient could be developing fungal sepsis; however, this seems less likely. 6. History of atrial fibrillation - The patient appears to be in a sinus-generated rhythm at present time. With her hypotension, we are unable to continue a beta blockade. We will follow patient on telemetry. We will monitor this. 7. Anticoagulation - The patient's INR is slightly subtherapeutic. I suspect that with antibiotic intervention, this will likely increase. We will hold Coumadin for now. We will check a PT and INR in the a.m. 8. Chronic lymphocytic leukemia - We will remain aware. We will defer management to Dr. Hendricks. 9. Anemia - This likely is a consequence of her bone marrow pathology. At this point, there is no indication for transfusion. 10. Fluid, electrolytes, nutrition - We will monitor electrolytes. Normal saline 2 L bolus followed by 150 mL an hour. Neutropenic diet. 11. Prophylaxis - Patient INR is slightly subtherapeutic. As above, I suspect with antibiotic intervention, this will increase. PTT is significantly elevated. We will hold Coumadin for now, but we will plan to resume this once her condition stabilizes and/or she becomes subtherapeutic. cc: Artur Emery MD
[2019-06-04] MEDS ORDERED: VANCOMYCIN 500 MG/NS 500 MG/100 ML IVPB IV ONE (17:00)
[2019-06-04] MEDS ORDERED: GRANIX SUBQ ONE (17:30)
--- NOTE | 2019-06-04 18:15 | Diag Imaging Result Doc PS360 ---
EXAM: CT THORAX/ABD/PELVIS W/O CON INDICATION: Febrile neutropenia/ lower abdominal pain TECHNIQUE: This exam was performed using automated exposure control, adjustment of mA or kV according to patient size, and/or use of iterative reconstruction technique. COMPARISON: 02/25/2019 FINDINGS: CHEST: There is subsegmental atelectasis and possibly some scarring at both lung bases. There are a couple of calcified granulomata in the right middle lobe. No other discrete consolidation is identified. There is no pleural fluid collection and no pneumothorax. There is minimal bronchiectasis in the right middle lobe, stable. There is no evidence of significant mediastinal or hilar lymphadenopathy. There are calcified hilar lymph nodes indicating prior granulomatous disease. No significant axillary lymphadenopathy is appreciated. Spondylosis and thoracolumbar scoliosis is noted that is stable. ABDOMEN/PELVIS: There is excessive motion artifact through the abdomen and pelvis, which may obscure fine details. There has been a prior cholecystectomy. There is no splenomegaly. The liver and spleen are essentially unremarkable, otherwise. The visualized pancreas and adrenal glands are essentially unremarkable. There are several nonobstructing intrarenal stones bilaterally. There is no hydronephrosis. The urinary bladder is grossly unremarkable. There has been a prior hysterectomy. There is uncomplicated diverticulosis coli. The remainder of the GI tract is essentially unremarkable as imaged. No focal inflammatory change, free abdominal gas, or free fluid is identified. No new lymphadenopathy is identified. IMPRESSION: 1.Subsegmental atelectasis and likely some scarring at both lung bases. 2.Other incidental/nonacute findings detailed above. No other definite acute pathology involving the chest, abdomen, or pelvis. Electronically signed by Rock Chavira 06/04/2019 6:13 PM
--- NOTE | 2019-06-04 19:35 | INFECTIOUS DISEASE CONSULT REP ---
DATE: 06/04/2019 CONCLUSION: The patient is admitted to the hospital with neutropenic fever. RECOMMENDATIONS: I agree with treating the patient with vancomycin and meropenem. 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 I also agree with Dr. Tang ordering a non- contrasted CT scan of the thorax, abdomen, and pelvis. DISCUSSION: The patient has a 2-day history of fever and chills, sores in her mouth, and lower abdominal pain. The patient's chest x-ray shows small areas of bibasilar atelectasis. Liver function studies are normal. Urinalysis is negative for white cells and bacteria. Swab for influenza is negative. Blood cultures are pending. Creatinine is 1.4, GFR is 44. CBC shows a white count of 1570, with an absolute neutrophil count of 0, hemoglobin is 11.1, platelet count is a 162,000. The patient appears to be developing oral candidiasis. She is at the stage of having a lot of erythema on her tongue and her mouth is painful. OBSTETRICAL/GYNECOLOGICAL HISTORY: The patient is a 2, para 2, AB 0. She has had a hysterectomy. REVIEW OF SYSTEMS: eyes/ears: Her hearing and vision are okay. Neck: No stiffness. Respiratory: No cough or dyspnea. Cardiac: No chest pain or palpitations. Gastrointestinal: No nausea, vomiting, or diarrhea. The patient is having lower abdominal pain, however. Genitourinary: No dysuria or flank pain. Neurologic: No seizures. No loss of motor or sensory function. PREVIOUS HOSPITALIZATIONS AND OPERATIONS: Patient has had 2 labor and deliveries and a hysterectomy. She has also had an appendectomy, a cholecystectomy, and admission for a deep venous thrombosis in the right leg for which the patient said the right leg artery was tied off that had the clot in it. The patient has also had a Port-A-Cath placed on her left side. MEDICAL DISEASES: Positive for hypertension and chronic lymphocytic leukemia. INFECTIOUS DISEASE HISTORY: Positive for pneumonia and UTI. FAMILY HISTORY: Positive for hypertension, myocardial infarction, and cancer. SOCIAL HISTORY: [place] She is a . She does not have any pets. She does not smoke cigarettes, drink alcoholic beverages, or abuse drugs. HOME MEDICATIONS INCLUDE: Diltiazem, hydrocodone, lorazepam, meclizine, and Coumadin. ALLERGIES: The patient has drug allergies to BIANKA inhibitors, naproxen, sulfa, and Darvocet. The patient has a severe allergic reaction to penicillin manifested by swelling, but the patient has been able to tolerate meropenem well during this admission. PHYSICAL EXAMINATION: Vital Signs: Temperature is 102.2 degrees, pulse 86, respirations 24, blood pressure 96/59. Patient weighs 132 pounds. General: This is an ill-appearing, elderly female. She is in no acute distress. Head/eyes/ears/nose/throat: She can hear my spoken words and see near objects. She does have what looks like an erythematous tongue suggestive of initial stage of oral candidiasis. Neck: No meningismus. Lungs: Clear to auscultation. Cardiovascular: Regular heart rate. Abdomen: Soft and nontender. Neurologic: The patient is alert. She can move her extremities. There is no tremor. Her sensation is intact to touch. Her memory as regarding her medical history is intact. Integument: No rash noted. Thorax: The patient has a left-sided Port-A-Cath in place. The site is not swollen or tender. Extremities: There is bilateral leg edema, but no erythema. cc: MD Artur Mae MD
[2019-06-04] MEDS: NS 1,000 ML IV SCH (20:07)
[2019-06-04] MEDS: MERREM 1 GM in NS 50 ML IV SCH (20:07)
[2019-06-04] MEDS: ATIVAN PO SCH (22:22)
[2019-06-05] MEDS: NS 1,000 ML IV SCH ×6 (03:26→17:58)
[2019-06-05] MEDS: MERREM 1 GM in NS 50 ML IV SCH (03:59)
[2019-06-05 05:32] LABS: INR 2.28; PROTIME 25.7 Seconds (11.0-16.0)
[2019-06-05 05:43] LABS: HEMATOCRIT 31.5 % (37.0-47.0); HEMOGLOBIN 10.3 g/dL (12.0-16.0); IMM GRAN# 0.02 X1000 (0.0-0.04); IMM GRAN% 1.4 % (0.0-0.5); LYMPH# 0.46 X1000 (1.2-3.4); LYMPH% 31.5 % (20.5-51.1); MCH 25.3 PG (27-31); MCHC 32.7 g/dL (33-37); MCV 77.4 FL (81-99); MONO# 0.67 X1000 (0.11-0.59); MONO% 45.9 % (1.7-9.3); NEUT# 0.31 X1000 (1.4-6.5); NEUT% 21.2 % (42.2-75.2); PLT 152 X1000 (130-400); RBC 4.07 XMIL (4.2-5.4); RDW 15.8 % (11.5-14.5); WBC 1.46 X1000 (4.8-10.8)
[2019-06-05 05:56] LABS: ALB/GLOB RATIO 1.7; ALBUMIN 3.5 g/dL (3.5-5.0); CALCIUM 7.5 mg/dL (8.8-10.2); CREATININE 1.8 mg/dL (0.5-0.9); POTASSIUM 4.9 mmol/L (3.5-5.1); TOTAL BILIRUBIN 0.16 mg/dL (0.20-1.00); TOTAL PROTEIN 5.6 g/dL (6.3-8.3)
[2019-06-05 06:29] LABS: BANDS 6 % (0-1); BASO 1 % (0-1); LYMPHS 39 % (21-51); MONO 30 % (1-9); SEGS 21 % (42-75)
[2019-06-05] MEDS ORDERED: GRANIX SUBQ SCH (09:00)
[2019-06-05] MEDS: MERREM 500 MG in NS 50 ML IV SCH ×2 (12:40→20:57)
--- NOTE | 2019-06-05 13:33 | HEMO/ONC CONSULTATION ---
DATE: 06/05/2019 CHIEF COMPLAINT: Neutropenic fever. HISTORY OF PRESENT ILLNESS: Ms Solis is an 78-year-old female who is known to us in the office for management of chronic lymphocytic leukemia and mild normocytic anemia. She presented for a routine follow-up visit on Sunday. 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 She states since taking these medications over the last 4 weeks, she has gradually began to not feel well. She has an increase in fatigue, but otherwise cannot pinpoint any other symptoms. Her CBC revealed that she was extremely neutropenic. We gave the patient an injection of Leukine. She was to come back Sunday for an additional shot of Leukine and reassessment. The patient called stating she felt worse and that her fever was now 100.8 degrees. She came into the office and was found to have a fever of 101.5 degrees and visibly shaking with rigors. The patient was immediately sent to the ER for evaluation and admission. On evaluation in the ER, the patient was found to have 0% neutrophils and a white blood count of 1.57. She is currently in the ICU. She states she feels better than she has the last 2 days. She states that she has had some mild lower abdominal pain and that she has mouth sores. PAST MEDICAL HISTORY: 1. Chronic lymphocytic leukemia. 2. Hypertension. 3. Osteoarthritis. 4. History of DVT. 5. Osteopenia. 6. Reflux disease. 7. Atrial fibrillation, paroxysmal. 8. History of angioedema related to BIANKA inhibitor. 9. Scoliosis. HOME MEDICATIONS: Hydrocodone/APAP, lorazepam, meclizine, warfarin, Valtrex, multivitamins, vitamin B complex, losartan/hydrochlorothiazide, and metoprolol. ALLERGIES: BIANKA inhibitors, naproxen, penicillin, Darvocet, sulfa. SOCIAL HISTORY: Patient denies tobacco use, alcohol, or illicit drug use. REVIEW OF SYSTEMS: Negative unless discussed in the HPI. PHYSICAL EXAMINATION: Vital signs: Temperature 96.8 degrees, pulse rate 56, respiratory rate 27, blood pressure 123/84, O2 saturation 96% on room air. She is in 0/10 pain. General: An ill- appearing elderly female in no acute distress. Skin: Warm, dry, and intact without rashes or lesions. HEENT: Sclerae anicteric, PERRLA. Mouth: Oral mucosa is pink and moist. Cardiovascular: Normal S1, S2. Heart rate and rhythm regular. Respiratory: No signs of respiratory distress. Lung sounds are clear in all lobes bilaterally. Abdomen: Soft, nontender without distention. Musculoskeletal: Upper and lower extremities are atraumatic in appearance without edema or deformity. Neurological: The patient is awake, alert, and oriented x3. No gait abnormality is appreciated. No focal motor deficits noted. Lymph Node Survey: No lymphadenopathy noted to head, neck, or axillary area. LABORATORY DATA: WBCs 1.46, hemoglobin 10.3, hematocrit 31.5, platelet count 152,000. ANC 0.31, creatinine 1.8, calcium 7.5. IMAGING: Chest x-ray shows no acute abnormalities, and abdomen and pelvis CT shows subsegmental atelectasis and likely some scarring in both lung bases, no definite acute pathology. ASSESSMENT: 1. Febrile neutropenia. 2. Possible sepsis. 3. Oral thrush. 4. Chronic lymphocytic leukemia. PLAN: The patient is currently not being treated for CLL at this time in the clinic. She is receiving 6 week port flushes. Her last port flush was on June 03. We want the patient to have Neupogen injections daily until her ANC is greater than 1.0. All other orders per Dr. Emery and Dr. Moses. We will continue to follow closely. Dictated by TINO Henao for Diego Ventura MD Patient seen and examined. Admitted with severe neutropenia with fever. Probable sepsis. Etiology of neutropenia is unclear, suspect drug induced. Neupogen started. Continue current management as discussed with Dr. Emery. Diego ventura MD. cc: MD Artur Santillan MD [facility]
--- NOTE | 2019-06-05 14:13 | INFECTIOUS DISEASE PROGRESS NO ---
DATE: 06/05/2019 PRESENT ILLNESS: The patient has neutropenic fever. MEDICATIONS: The patient is on vancomycin and meropenem. PHYSICAL EXAMINATION: Vital Signs: Temperature maximum was 102.5, it is 96 now, pulse 51, respirations 14, blood pressure 117/63. General: This is a ill-appearing elderly female. She is in no acute distress. Head/eyes/ears/nose/throat: She can hear my spoken words and see near objects. Her oral mucosa appeared to be more red and she said it was painful, especially her tongue. Neck: No meningismus. Lungs: Clear to auscultation. Cardiovascular: Heart rate is regular. regular. Abdomen: The abdomen is soft and nontender. Thorax: The patient has a Port- A-Cath present on the left side. The site is not swollen or draining. Extremities: Bilateral edema but no erythema. Neurologic: Patient is alert. She can move her extremities. There is no tremor. LAB AND X-RAY: The patient's CT scan of the chest, abdomen and pelvis showed bibasilar showed bibasilar atelectasis but no other abnormal finding. The patient's CBC shows a white count of 1460, hemoglobin 10.3, and platelet count 152,000. Creatinine is 1.8. GFR is 33. Absolute neutrophil count is 300. Rapid strep test is negative. Swab for influenza is negative. Patient's urine analysis showed no white cells or bacteria. Liver function studies were normal. ASSESSMENT AND PLAN: Patient has had neutropenic fever. My plan now is to discontinue vancomycin because the patient's creatinine is up to 1.8 and decrease meropenem dose to 500 mg IV every 8 hours again because the creatinine is up to 1.8. COMORBIDITIES: The patient has chronic lymphocytic leukemia for which she gets chemotherapy. cc: MD Artur Mae MD
[2019-06-05] MEDS: DIFLUCAN PO SCH (15:54)
[2019-06-05] MEDS: NORCO-10 PO PRN (15:54)
[2019-06-05] MEDS: ZOFRAN PO PRN (15:55)
--- NOTE | 2019-06-05 17:08 | PROGRESS NOTE ---
DATE: 06/05/2019 SUBJECTIVE: Ms. Solis is feeling a little bit better. She does complain of a little bit of a headache. OBJECTIVE: Vital signs: Remains afebrile, temperature 97.3 degrees, pulse 62, respirations 23, blood pressure 137/79. HEENT: Pupils are equal and round. Lungs: Clear in all lung lombardi. Cardiovascular: Regular rhythm and rate without murmur or S3. Urine output was 1400 mL. ASSESSMENT AND PLAN: 1. Febrile neutropenia. She is not being treated at this time for CLL. She is receiving 6 week port flushes. Port flush was on June 03. We want the patient to have Neupogen injections daily until her ANC is greater than 1. 2. Possible sepsis. Continue with present antibiotics. 3. Oral thrush. 4. Chronic lymphocytic leukemia. 5. Shoulder and back pain and scoliosis. Aware. We will let her have her [place] back. 6. Review of her medications. She is on meropenem 500 mg IV q.8 and vancomycin. 7. Throat cultures pending. Group A strep rapid antigen was negative. Blood cultures from the still pending. cc: MD Artur Sullivan MD
[2019-06-05] MEDS: ALBUTEROL NEB INH PRN (21:24)
[2019-06-05] MEDS: ATIVAN PO SCH (21:43)
[2019-06-06] MEDS: NS 1,000 ML IV SCH ×2 (00:02→06:22)
[2019-06-06] MEDS: ZOFRAN PO PRN (02:23)
[2019-06-06] MEDS: NORCO-10 PO PRN ×2 (02:23→09:41)
[2019-06-06] MEDS ORDERED: EPINEPHRINE SYRINGE IV ONE (05:35)
[2019-06-06] MEDS ORDERED: CALCIUM CHLORIDE SYRINGE IV ONE (05:35)
[2019-06-06] MEDS ORDERED: NS IV ONE (05:35)
[2019-06-06] MEDS ORDERED: ATROPINE SYRINGE IV ONE (05:35)
[2019-06-06] MEDS: MERREM 500 MG in NS 50 ML IV SCH ×2 (06:22→13:31)
[2019-06-06 06:47] LABS: BASO# 0.03 X1000 (0.0-0.2); BASO% 0.7 % (0.0-0.8); EOS# 0.06 X1000 (0.0-0.7); EOS% 1.4 % (0.0-10.0); HEMATOCRIT 30.4 % (37.0-47.0); HEMOGLOBIN 9.9 g/dL (12.0-16.0); IMM GRAN# 0.07 X1000 (0.0-0.04); IMM GRAN% 1.6 % (0.0-0.5); LYMPH# 0.69 X1000 (1.2-3.4); LYMPH% 15.6 % (20.5-51.1); MCH 25.1 PG (27-31); MCHC 32.6 g/dL (33-37); MCV 77.2 FL (81-99); MONO# 1.55 X1000 (0.11-0.59); MPV 10.7 FL (7.4-10.4); NEUT# 2.03 X1000 (1.4-6.5); NEUT% 45.7 % (42.2-75.2); PLT 148 X1000 (130-400); RBC 3.94 XMIL (4.2-5.4); RDW 15.8 % (11.5-14.5); WBC 4.43 X1000 (4.8-10.8)
[2019-06-06 07:04] LABS: BANDS 13 % (0-1); EOS 2 % (1-10); LYMPHS 15 % (21-51); MONO 27 % (1-9); SEGS 42 % (42-75)
[2019-06-06 07:10] LABS: CALCIUM 8.3 mg/dL (8.8-10.2); CREATININE 1.5 mg/dL (0.5-0.9); POTASSIUM 4.2 mmol/L (3.5-5.1)
[2019-06-06] MEDS: ZOFRAN IV PRN ×3 (08:03→21:04)
[2019-06-06] MEDS ORDERED: LASIX IV ONE (08:08)
--- NOTE | 2019-06-06 08:32 | Diag Imaging Result Doc PS360 ---
CHEST-PORTABLE - 06/06/2019 INDICATION: decrease bs COMPARISON: 06/04/2019 FINDINGS: Stable left chest port. Lung volumes are severely low. There is worsening multifocal infiltrates in the right lung mainly in the right upper lobe and right base. There is probably a trace right pleural effusion. There is cardiomegaly and pulmonary vascular congestion. IMPRESSION: 1. Multifocal infiltrate/pneumonia in the right lung. Trace right pleural effusion. 2. Cardiomegaly and pulmonary vascular congestion. Electronically signed by Colin Martel 06/06/2019 8:30 AM
--- NOTE | 2019-06-06 08:56 | PROGRESS NOTE ---
DATE: 06/06/2019 Ms. Solis had a little rough night. A little more trouble breathing. Some pain in her back and her head and the neck. We got her to sit her up in a chair. We turned off her fluids. I am giving her some Lasix this morning. Overall doing better. OBJECTIVE: Temperature 97.4 degrees, pulse 60, respirations 19, blood pressure 110/48.HEENT: Pupils are equal and round. Lungs: Clear in all lung lombardi. Cardiovascular: Regular rhythm and rate without murmur or S3. Abdomen: Soft. Skin: Warm and dry. Looking over her volume, she is positive quite a bit. Urine output is still good though. She has no distention of neck veins. There are some rales appreciated in the bases of the lungs. She has some general swelling in her hands and feet. So, we will we will give her some Lasix this morning, try and increase her activity. She is back on her [place] for pain. Her neutropenia has resolved. White count is 4430, hematocrit 30, hemoglobin 9.9, platelet count is 148,000. Sodium 144, potassium 4.2, chloride 116, BUN is 31, creatinine 1.5 which has come down from 1.8 yesterday. ASSESSMENT AND PLAN: 1. Pulmonary venous hypertension, volume overload. Gave her a little Lasix, stopped her fluid. 2. Neutropenia, which is improved. 3. Renal function is improved. Creatinine down from 1.8 to 1.4 which, 1.5 or 1.4 I think is her baseline. 4. Chronic lymphocytic leukemia. 5. Suspect her neutropenia the result of losartan. We will increase her activity. Review of her orders. Ativan 1 mg p.o. at bedtime, Diflucan 200 mg daily, meropenem 500 mg q.8. Note that cultures have not grown anything. I would treat her for some oral thrush. cc: MD Artur Sullivan MD
--- NOTE | 2019-06-06 09:26 | HEMO/ONC PROGRESS NOTE ---
DATE: 06/06/2019 SUBJECTIVE: The patient is sitting up in bed eating her breakfast. She is in a bedside chair. She feels relatively well this morning although she can tell that she is fluid overloaded. She states her kidneys are not working very well, meaning she is not urinating very much. She had a difficult time sleeping last night, but had no acute events overnight. The patient's neutropenia has resolved. Her appetite is minimal, but she is attempting to eat her breakfast. Mouth sores have improved. OBJECTIVE: Vital Signs: Temperature 97.4 degrees, pulse rate 61, respiratory rate 19, blood pressure 110/48, O2 saturation 95% on room air. General: This is an elderly female in no acute distress. Well developed, well nourished. She is slightly overweight with a BMI of 26.3. Skin: Warm, dry, and intact without rashes or lesions. HEENT: Sclerae is anicteric. PERRLA. Oral mucosa is pink and moist. Cardiovascular: Normal S1, S2. Heart rate and rhythm regular. Respiratory: No signs of respiratory distress. Lung sounds are clear to auscultation. She has no rales, rhonchi, or wheezes noted. Abdomen: Soft, nontender without distention. No pain on palpation. Musculoskeletal: Upper and lower extremities are atraumatic in appearance without edema or deformity. Neurological: Awake, alert, oriented x3. No gait abnormality appreciated. No focal motor deficits noted. LABORATORY DATA: WBCs 4.43, hemoglobin 9.9, hematocrit 30.4, platelet count 148,000, ANC 2.03, creatinine 1.5. Chest x-ray shows: 1) Multifocal infiltrate/pneumonia in the right lung, trace right pleural effusion; 2) Cardiomegaly and pulmonary vascular congestion. ASSESSMENT: 1. Febrile neutropenia, resolved. 2. Possible sepsis. 3. Oral thrush. 4. Chronic lymphocytic leukemia. PLAN: The patient came in with neutropenia for which the etiology is unclear. It is suspected that it was drug induced. We did start Neupogen and the patient's ANC has recovered. Patient has improved, however, the patient is retaining fluid. Dr. Chacko is managing. The patient's CLL remains in remission at this time. Dictated by TINO Henao for Diego Hendricks MD [facility]
[2019-06-06] MEDS: ALBUTEROL NEB INH PRN ×2 (09:50→15:55)
[2019-06-06] MEDS: TYLENOL PO PRN ×2 (14:43→21:02)
[2019-06-06] MEDS: DIFLUCAN PO SCH (15:27)
[2019-06-06] MEDS: GAMUNEX-C 10% IV SCH (15:27)
--- NOTE | 2019-06-06 16:12 | INFECTIOUS DISEASE PROGRESS NO ---
DATE: 06/06/2019 PRESENT ILLNESS: The patient has neutropenic fever and on x-ray now an infiltrate is being seen in the right lung. The infiltrate may be seen now because the patient's white blood cell count is recovering and the white blood cells are the thing that causes shadows to be seen on chest x-rays because of pneumonia. MEDICATIONS: The patient is on meropenem and fluconazole. This is day 1 of both agents. PHYSICAL EXAMINATION: Vital Signs: Temperature is 100.2 degrees, pulse 68, respirations 17, blood pressure 107/50. General: This is a ill-appearing elderly female. She is in no acute distress. Head/eyes/ears/nose/throat: She can hear my spoken words and see near objects. She does not have any white patches on her tongue. Neck: No pain with movement. Lungs: Clear to auscultation. Cardiovascular: Regular heart rate. Abdomen: Soft and nontender. Thorax: The patient has a Port-A-Cath on the left side. The site is not erythematous or draining. Extremities: Patient has bilateral edema but no erythema. Neurologic: Patient is alert. She can move her extremities. There is no tremor. LAB AND X-RAY: Chest x-ray shows a right lung infiltrate. CBC shows a white count of 4,430 with an absolute neutrophil count of 2030. Hemoglobin is 9.9 and platelet count 148,000. Creatinine is 1.5. GFR is 40. The patient's immunoglobulin levels are returned and unfortunately they are very low. IgA is only 9, IgG is 166 and IgM is less than 5. ASSESSMENT AND PLAN: Patient has a neutropenic fever and now it appears that the patient has pneumonia which did not show up on earlier x-rays because the patient was very neutropenic. Now that her white cell count is recovering. We were able to see that she probably did have pneumonia when she came in but it did not show because of the low white count. In any event I am going to continue with meropenem and add Zyvox. Zyvox can suppress blood counts, but the patient's count is recovering and I think it will even though the patient is a is going to be on Zyvox. Certainly, if it does not recover, then the Zyvox will have to be discontinued. I am not going to be using vancomycin because the patient's creatinine is elevated and also because she is very old. Patient has a marked decrease in immunoglobulins which can be seen frequently with chronic lymphocytic leukemia. My plan is to give the patient IV-Ig to hopefully build up the IgG part of the immunoglobulins. COMORBIDITIES: Chronic lymphocytic leukemia for which the patient gets chemotherapy. patient has a marked decrease in immunoglobulins as which can be seen frequently with chronic lymphocytic leukemia. cc: MD Artur Mae MD
[2019-06-06] MEDS ORDERED: VANCOMYCIN 1 GM/NS 1 GM/250 ML IVPB IV SCH (17:00)
[2019-06-06] MEDS: DUONEB (A & A) INH SCH ×2 (20:10→22:44)
[2019-06-06] MEDS: ATIVAN PO SCH (21:02)
[2019-06-06] MEDS ORDERED: MERREM 1,000 MG in NS 50 ML IV SCH (22:00)
[2019-06-07] MEDS: DUONEB (A & A) INH SCH ×6 (03:59→22:53)
[2019-06-07 07:36] LABS: BASO# 0.01 X1000 (0.0-0.2); BASO% 0.1 % (0.0-0.8); EOS% 2.2 % (0.0-10.0); HEMATOCRIT 29.4 % (37.0-47.0); HEMOGLOBIN 9.6 g/dL (12.0-16.0); LYMPH# 0.78 X1000 (1.2-3.4); LYMPH% 8.7 % (20.5-51.1); MCH 25.8 PG (27-31); MCHC 32.7 g/dL (33-37); MONO# 1.78 X1000 (0.11-0.59); MONO% 19.8 % (1.7-9.3); NEUT# 6.23 X1000 (1.4-6.5); NEUT% 69.2 % (42.2-75.2); PLT 130 X1000 (130-400); RBC 3.72 XMIL (4.2-5.4); RDW 16.2 % (11.5-14.5)
[2019-06-07 07:48] LABS: CALCIUM 8.5 mg/dL (8.8-10.2); CREATININE 1.5 mg/dL (0.5-0.9); POTASSIUM 3.7 mmol/L (3.5-5.1)
[2019-06-07] MEDS: MERREM 1 GM in NS 50 ML IV SCH ×2 (10:02→21:55)
[2019-06-07] MEDS: GAMUNEX-C 10% IV SCH (11:30)
--- NOTE | 2019-06-07 12:44 | PROGRESS NOTE ---
DATE: 06/07/2019 SUBJECTIVE: She feels a little better. She is eating some lunch. She did have a little bit of gross hematuria yesterday. OBJECTIVE: Vital Signs: Temperature is 98.5 degrees, pulse 80, respirations 18, blood pressure 128/48. Eyes: Pupils are equal and round. Lungs: Lungs are clear in all lung lombardi. Cardiovascular exam: Regular rhythm and rate without murmur or S3. Abdomen: Soft. Skin: Warm and dry. ASSESSMENT AND PLAN: 1. The patient with neutropenic fever. X-ray now shows an infiltrate. Her blood counts are coming up. White count up to 9000, hematocrit is 29, hemoglobin is 9.6, platelet count 130,000. Sodium 142, potassium 3.7, chloride 111, BUN is 27, creatinine 1.5, which has come down from 1.8. So, will continue meropenem and fluconazole. This is day 2 of both agents I believe, and give her some immunoglobulin. 2. Underlying chronic lymphocytic leukemia. Review orders: I do not see any changes. cc: MD Artur Sullivan MD
[2019-06-07] MEDS: TYLENOL PO PRN (13:44)
[2019-06-07] MEDS: ZOFRAN PO PRN (13:44)
[2019-06-07] MEDS ORDERED: MILK OF MAGNESIA PO ONE (15:38)
[2019-06-07] MEDS ORDERED: DULCOLAX PR PRN (15:39)
[2019-06-07] MEDS: DIFLUCAN PO SCH (15:57)
[2019-06-07] MEDS: NORCO-10 PO PRN (18:01)
[2019-06-07] MEDS: ZOFRAN IV PRN ×2 (18:01→22:54)
[2019-06-07] MEDS: ATIVAN PO SCH (21:55)
[2019-06-07] MEDS: LACTULOSE PO SCH (21:55)
[2019-06-08] MEDS: ZOFRAN PO PRN (00:13)
[2019-06-08] MEDS: DUONEB (A & A) INH SCH ×2 (03:22→07:56)
[2019-06-08 07:20] LABS: BASO# 0.08 X1000 (0.0-0.2); BASO% 0.7 % (0.0-0.8); EOS# 0.24 X1000 (0.0-0.7); HEMATOCRIT 30.5 % (37.0-47.0); HEMOGLOBIN 9.9 g/dL (12.0-16.0); IMM GRAN# 1.27 X1000 (0.0-0.04); IMM GRAN% 10.5 % (0.0-0.5); LYMPH# 0.88 X1000 (1.2-3.4); LYMPH% 7.3 % (20.5-51.1); MCH 25.1 PG (27-31); MCHC 32.5 g/dL (33-37); MCV 77.2 FL (81-99); MONO# 1.59 X1000 (0.11-0.59); MONO% 13.2 % (1.7-9.3); MPV 10.6 FL (7.4-10.4); NEUT% 66.3 % (42.2-75.2); PLT 146 X1000 (130-400); RBC 3.95 XMIL (4.2-5.4); WBC 12.06 X1000 (4.8-10.8)
[2019-06-08 07:37] LABS: CALCIUM 8.7 mg/dL (8.8-10.2); CREATININE 1.2 mg/dL (0.5-0.9); POTASSIUM 3.8 mmol/L (3.5-5.1)
[2019-06-08 07:45] LABS: ANISOCYTOSIS 1+; EOS 2 % (1-10); LYMPHS 15 % (21-51); MICROCYTOSIS 1+; MONO 8 % (1-9); SEGS 75 % (42-75)
[2019-06-08] MEDS: GAMUNEX-C 10% IV SCH (09:26)
[2019-06-08] MEDS: LACTULOSE PO SCH ×2 (09:27→21:17)
[2019-06-08] MEDS: MERREM 1 GM in NS 50 ML IV SCH ×2 (09:27→21:19)
[2019-06-08] MEDS: NITROGLYCERIN SL PRN ×2 (10:56→11:00)
[2019-06-08] MEDS ORDERED: ASPIRIN PO ONE (10:58)
[2019-06-08] MEDS ORDERED: MORPHINE IV ONE (10:59)
[2019-06-08 11:25] LABS: ALLEN TEST YES; BE 1.2 mmoll (-3.0-3.0); BLOOD TYPE ARTERIAL; HCO3-(ACT) 25.7 mmoll (20.0-26.0); METHB 1.2 % (0.0-1.5); O2HB 90.7 % (95.0-99.0); PCO2(98.6) 35 mmHg (35-45); PO2(98.6) 54 mmHg (60-100); SAMPLE BLOOD; SAO2 92.8 % (95.0-100.0); THB 10.2 g/dL (11.5-17.4); pH(98.6) 7.46 (7.35-7.45)
[2019-06-08 11:26] LABS: MODALITY CANNULA
[2019-06-08] MEDS ORDERED: PROTONIX IV ONE (11:45)
[2019-06-08] MEDS ORDERED: SODIUM CHLORIDE 0.9% INJ ONE (11:45)
[2019-06-08] MEDS ORDERED: PROTONIX IV SCH (11:45)
--- NOTE | 2019-06-08 11:46 | Diag Imaging Result Doc PS360 ---
EXAM: CHEST-PORTABLE - 06/08/2019 HISTORY: cp TECHNIQUE: Portable chest COMPARISON: 06/06/2019 FINDINGS: Inspiration is somewhat shallow, with basilar subsegmental atelectasis. There is cardiomegaly. There is apparent mild vascular congestion. There is no dense consolidation, substantial pleural effusion, or pneumothorax identified. Central venous catheter remains in place. IMPRESSION: Somewhat shallow inspiration, with mild basilar atelectasis. Cardiomegaly with apparent mild vascular congestion. Electronically signed by Puneet Carr 06/08/2019 11:44 AM
--- NOTE | 2019-06-08 11:56 | PROGRESS NOTE ---
DATE: 06/08/2019 SUBJECTIVE: I was called to the bedside after the patient started to experience 10/10 chest pain. The patient reports that when she got up to go and use the bathroom, she started having heaviness in the center of her chest associated with some shortness of breath. The patient was placed back in bed in placed on supplemental oxygen. She was also given 2 sublingual nitroglycerin as well as 2 mg of IV morphine. The patient then stated that her chest pain had improved and rated it at about a 3/10 in intensity. The EKG revealed normal sinus rhythm with no ST or T-wave changes noted. The patient was also seen by Dr. Almonte at the bedside. At this time, a CT angiogram of the pulmonary arteries has been ordered, and we will trend the patient's cardiac enzymes and order repeat EKG as well. The patient will be transferred to [facility] for further monitoring. cc: MD Artur Gupta MD
--- NOTE | 2019-06-08 12:38 | EKG Report ---
Test Performed on : 06/08/2019 10:42:27 AM Test Reason : cp Blood Pressure : / mmHG Vent. Rate : 083 BPM Atrial Rate : 083 BPM P-R Int : 118 ms QRS Dur : 082 ms QT Int : 380 ms P-R-T Axes : 026 019 025 degrees QTc Int : 446 ms Normal sinus rhythm. Possible Left atrial enlargement Borderline ECG When compared with ECG of 24-APR-2019 07:31, No significant change was found Confirmed by Jenny Grajeda MD ([id number]) on 06/10/2019 8:29:32 AM
--- NOTE | 2019-06-08 12:46 | Diag Imaging Result Doc PS360 ---
EXAM: CT ANGIOGRAM PULMONARY ARTERIES - 06/08/2019 HISTORY: pneumonia, rule out PE TECHNIQUE: CT angiogram pulmonary arteries with intravenous contrast. Axial, coronal, and 3-D MIP images are obtained. COMPARISON: 02/25/2011 FINDINGS: There are no filling defects identified in the pulmonary arteries. There is no indication of aortic dissection. There is mild cardiomegaly. There are small bilateral pleural effusions. There is dependent and basilar atelectasis bilaterally. There is ill-defined mild suprahilar infiltrate on the right. There is no pneumothorax identified. IMPRESSION: No evidence of pulmonary embolism. Mild cardiomegaly. Small bilateral pleural effusions. Bilateral dependent and basilar atelectasis. Mild suprahilar infiltrate on the right. Electronically signed by Puneet Carr 06/08/2019 12:44 PM
--- NOTE | 2019-06-08 12:48 | Diag Imaging Result Doc PS360 ---
EXAM: ABDOMEN FLAT/UPRIGHT - 06/08/2019 HISTORY: abdominal pain/nausea TECHNIQUE: Supine and upright abdomen COMPARISON: 10/27/2017 FINDINGS: The bowel gas pattern is unremarkable. There is no free air identified. There are surgical clips at the right upper quadrant. There is intravenous contrast from a recent CT and the pulmonary arteries and the renal collecting systems. IMPRESSION: Unremarkable bowel gas pattern. Electronically signed by Puneet Carr 06/08/2019 12:45 PM
--- NOTE | 2019-06-08 15:09 | INFECTIOUS DISEASE PROGRESS NO ---
DATE: 06/08/2019 PRESENT ILLNESS: The patient was admitted with neutropenic fever and a right lung pneumonia. We have discovered that the patient also has an immunoglobulin deficiency. MEDICATIONS: The patient is on day 3 of meropenem and I have discontinued fluconazole. The patient also has been getting a dose of IVIG daily for a total of 3 days. PHYSICAL EXAMINATION: Vital Signs: Temperature is 98.8 degrees, pulse 77, respirations 35, blood pressure 162/77. General: This is an ill-appearing elderly female. She is in no acute distress. Head/eyes/ears/nose/throat: She can hear my spoken words and see near objects. I did not see any white coating on her tongue. Neck: No pain with movement. Thorax: The patient has a Port-A- Cath on the left side. The site is not swollen or tender. Extremities: Patient has bilateral edema but no erythema. Neurologic: The patient is alert. She can move her extremities. There is no tremor. LAB AND X-RAY: CBC shows a white count of 12,060, hemoglobin 9.9, platelet count 146,000. Blood gases show a pH of 7.46, a PO2 of 54, and a pCO2 of 35. Creatinine is 1.2. GFR is 52. Pulmonary angiography showed bibasilar atelectasis, a right lung infiltrate and no pulmonary embolus. ASSESSMENT AND PLAN: Patient neutropenia has resolved. I plan to continue meropenem for the patient's pneumonia. She has gotten her 3 doses of immunoglobulin and therefore her IgG level should be in the normal range. Unfortunately, she has a very low IgA level and there is no replacement product for IgA. COMORBIDITIES: The patient has chronic lymphocytic leukemia for which she gets chemotherapy. She has an immunoglobulin deficiency because that is seen in patients with chronic lymphocytic leukemia. cc: MD Artur Mae MD
[2019-06-08] MEDS: TOPROL XL PO SCH (15:13)
--- NOTE | 2019-06-08 15:22 | PROGRESS NOTE ---
DATE: 06/08/2019 SUBJECTIVE: Ms. Solis had a little spell shortly after she got the immunoglobulin IV and complained of chest tightness and was diaphoretic. He was moved to a PVC. OBJECTIVE: She remains afebrile, pulse 70, respirations 30, blood pressure 162/77. Pupils are equal and round. Lungs are clear in all lung lombardi. Cardiovascular regular rhythm and rate without murmur or S3. Abdomen is soft. Skin is warm and dry. Urine output is 2400 mL. ASSESSMENT AND PLAN: 1. She experienced some chest pain 10 out of 10, and then got up to use the bathroom started having heaviness in the center of her chest associated with shortness of breath. The patient placed back in the bed and on supplemental oxygen. She was given 2 sublingual nitroglycerin as well as 2 mg IV morphine. Chest pain improved to 3/10 intensity. EKG was normal. No ST or T-wave changes. The patient was seen by Dr. Almonte. CT of the angiogram, pulmonary arteries been ordered and cardiac enzymes obtained. Does not appear to be cardiac ischemia. 2. Neutropenia, which is resolved. 3. History of chronic lymphocytic leukemia. 4. Immunoglobulin deficiency. We had given her some immunoglobulin. 5. Pneumonia which seems to be improving. Continue current antibiotics. cc: MD Artur Sullivan MD
--- NOTE | 2019-06-08 15:31 | CARDIOLOGY CONSULTATION ---
DATE: 06/08/2019 There was a CAT call for severe chest pain. An electrocardiogram was normal. CT scan of the chest did not reveal any pulmonary embolism. Infiltrate was noted with some effusion. First set of cardiac enzymes was negative. HISTORY OF PRESENT ILLNESS: An 78-year-old, -[place] lady with significant CLL, hypertension, osteoarthritis, osteopenia, history of atrial fibrillation. She was admitted and patient has a neutropenic fever. Chest x-ray revealed infiltrate. She was given immunoglobulins intravenously yesterday. She tolerated it. However, she had another dose and she incidentally had severe chest pain and a CAT call was initiated. The patient was comfortable, did not complain of any diaphoresis. When she was admitted to the hospital, the patient was admitted with a fever as well, fever going up to 101.5. She has had some abdominal discomfort as well and some mouth sores. PAST MEDICAL HISTORY: 1. CLL. 2. Hypertension. 3. Osteoarthritis. 4. History of DVT. 5. History of paroxysmal atrial fibrillation. 6. 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 7. Scoliosis. MEDICATIONS: Her home medications include Toprol, Coumadin, Valtrex, losartan/hydrochlorothiazide, metoprolol, hydrocodone. Currently, in the hospital, she is also receiving lorazepam, immunoglobulins, lactulose 30 b.i.d., meropenem, Protonix. REVIEW OF SYSTEMS: Gastrointestinal System: There is no history of nausea, vomiting, or diarrhea. There is no history of hematemesis or melena. Central Nervous System: No focal weakness to suggest a CVA or TIA. Genitourinary System: There is no dysuria or hematuria. PHYSICAL EXAMINATION: Blood pressure was 162/77. First and second heart sounds were heard. There was no S3 gallop. Respiratory System: Scattered wheeze. Abdomen: Soft, nontender. There was no guarding or rigidity. Bowel sounds were heard. Central Nervous System: Alert and was moving all 4 extremities. Examination of extremities revealed no pedal edema. HEENT: Atraumatic. Pupils were reacting to light. LABORATORY EXAMINATION: Revealed sodium 147, potassium 3.8, BUN 18, creatinine 1.2. WBC when she came in was 1.57 and today 12.06, hemoglobin 11.1 and today 9.9, hematocrit 33, platelet count of 162,000, her neutrophils were 0 when she was admitted on 06/04/2019. CT scan of her chest was done which revealed bilateral pleural effusion with right suprahilar infiltrate on the right side. There was no pulmonary embolism. ASSESSMENT AND PLAN: Ms. Laura Solis is an 78-year-old, -[place] lady with a history of chronic lymphocytic leukemia, hypertension, history of paroxysmal atrial fibrillation, deep venous thrombosis, hypertension, is admitted with neutropenic fevers and has an infiltrate. Pneumonia is being treated with antibiotics. She had severe chest pain, CAT call, following which electrocardiogram was done. First set of cardiac enzymes was negative and CT scan ruled out pulmonary embolism. RECOMMENDATIONS: 1. From a cardiac standpoint, we will get serial cardiac enzymes and an echocardiogram to assess cardiac and valvular function. 2. If cardiac enzymes are negative, we will plan for a stress test to rule out ischemia given her age, past medical history. Intensity of chest pain was severe. 3. She has neutropenic fever, is on multiple medications. In addition to antibiotics, I have not made any changes. 4. Hypertension. We will restart her on her beta-blockers. Thank you for the consult. We will follow hospital course. cc: MD Artur Renner MD
[2019-06-08] MEDS: XOPENEX NEB INH SCH ×2 (16:21→22:08)
[2019-06-08] MEDS: MIRALAX PO SCH (21:18)
[2019-06-08] MEDS: ATIVAN PO SCH (21:19)
[2019-06-08] MEDS: COUMADIN PO SCH (21:19)
[2019-06-08] MEDS: TYLENOL PO PRN (21:33)
[2019-06-09] MEDS: XOPENEX NEB INH SCH ×4 (03:37→22:39)
[2019-06-09] MEDS ORDERED: SODIUM CHLORIDE 0.9% INJ SCH (06:00)
[2019-06-09] MEDS: PROTONIX IV SCH (06:17)
--- NOTE | 2019-06-09 07:27 | EKG Report ---
Test Performed on : 06/09/2019 07:09:16 AM Test Reason : chest pain Blood Pressure : / mmHG Vent. Rate : 059 BPM Atrial Rate : 059 BPM P-R Int : 114 ms QRS Dur : 092 ms QT Int : 446 ms P-R-T Axes : 033 031 028 degrees QTc Int : 441 ms Sinus bradycardia. Possible Left atrial enlargement Borderline ECG When compared with ECG of 08-JUN-2019 10:42, (Unconfirmed) No significant change was found Confirmed by Jenny Grajeda MD ([id number]) on 06/10/2019 8:30:06 AM
[2019-06-09 07:29] LABS: BASO# 0.01 X1000 (0.0-0.2); BASO% 0.1 % (0.0-0.8); EOS# 0.22 X1000 (0.0-0.7); EOS% 2.1 % (0.0-10.0); HEMATOCRIT 29.6 % (37.0-47.0); HEMOGLOBIN 9.5 g/dL (12.0-16.0); LYMPH# 0.71 X1000 (1.2-3.4); LYMPH% 6.7 % (20.5-51.1); MCH 25.4 PG (27-31); MCHC 32.1 g/dL (33-37); MCV 79.1 FL (81-99); MONO# 1.08 X1000 (0.11-0.59); MONO% 10.1 % (1.7-9.3); MPV 10.4 FL (7.4-10.4); NEUT# 8.63 X1000 (1.4-6.5); PLT 127 X1000 (130-400); RBC 3.74 XMIL (4.2-5.4); RDW 16.3 % (11.5-14.5); WBC 10.65 X1000 (4.8-10.8)
[2019-06-09 07:32] LABS: INR 1.54; PROTIME 18.8 Seconds (11.0-16.0)
[2019-06-09 07:40] LABS: CALCIUM 8.9 mg/dL (8.8-10.2); CREATININE 1.3 mg/dL (0.5-0.9); POTASSIUM 3.9 mmol/L (3.5-5.1)
[2019-06-09] MEDS ORDERED: LEXISCAN ONE (08:29)
--- NOTE | 2019-06-09 09:20 | HEMO/ONC PROGRESS NOTE ---
DATE: 06/09/2019 SUBJECTIVE: The patient obtained a stress test this morning. The patient had a CAT call yesterday for severe chest pain. The patient was set for a CT scan which was negative for PE. Cardiology was consulted. Cardiac enzymes have so far been negative. OBJECTIVE: Vital Signs: Temperature 98.6 degrees, pulse rate 56, respiratory rate 12, blood pressure 136/72, O2 saturation 100% on 4 L via nasal cannula. She is in 0/10 pain. PHYSICAL EXAM: General: This is an elderly female in no acute distress. Well developed, well nourished. She is slightly overweight with a BMI of 26.3. Skin: Warm, dry, and intact without rashes or lesions. HEENT: Sclerae is anicteric. PERRLA. Oral mucosa is pink and moist. Cardiovascular: Normal S1, S2. Heart rate and rhythm regular. Respiratory: No signs of respiratory distress. Lung sounds are clear to auscultation. She has no rales, rhonchi, or wheezes noted. Abdomen: Soft, nontender without distention. No pain on palpation. Musculoskeletal: Upper and lower extremities are atraumatic in appearance without edema or deformity. Neurological: Awake, alert, oriented x3. No gait abnormality appreciated. No focal motor deficits noted. LABORATORY DATA: WBC 10.65, hemoglobin 9.5, hematocrit 29.6, platelet count 127,000, ANC 8.63, creatinine 1.3. Yesterday's chest x-ray shows mild basilar atelectasis, cardiomegaly with apparent mild vascular congestion. Pulmonary arteriogram shows no evidence of PE, mild cardiomegaly, small bilateral pleural effusion, bilateral dependent and basilar atelectasis. Mild suprahilar infiltrate on the right. ASSESSMENT: 1. Febrile neutropenia, resolved. 2. Chronic lymphocytic leukemia. 3. Immunoglobulin deficiency, treated. 4. Pneumonia, on antibiotics and improving. PLAN: Her CLL remains in remission. The etiology of her neutropenia at this time remains unclear, suspect drug induced. It has resolved. The patient was noted to have immunoglobulin deficiency, and she was treated with IgG infusion. Her chest pain episode began after this infusion. Continue current management. Dictated by TINO Henao for Diego Hendricks MD Patient seen and examined. As above. Patient being evaluated by cardiology for chest pain. Patient undergoing stress test today. She received IVIG for hypogammaglobulinemia. Febrile neutropenia has resolved. Neutropenia thought to be drug-induced. Continue to monitor white count weekly after discharge in our clinic. CLL is well controlled. Diego Hendricks M.D. cc: MD Artur Santillan MD [facility]ITALMaria Eugenia
[2019-06-09] MEDS: TOPROL XL PO SCH (10:45)
[2019-06-09] MEDS: MERREM 1 GM in NS 50 ML IV SCH ×2 (10:45→21:02)
[2019-06-09] MEDS: LACTULOSE PO SCH ×3 (10:46→21:00)
[2019-06-09] MEDS: MIRALAX PO SCH ×3 (10:46→21:00)
[2019-06-09] MEDS: ZOFRAN IV PRN (14:43)
--- NOTE | 2019-06-09 14:56 | INFECTIOUS DISEASE PROGRESS NO ---
DATE: 06/09/2019 HISTORY OF PRESENT ILLNESS: The patient was admitted with neutropenic fever and right lung pneumonia. The patient also has an immunoglobulin deficiency. MEDICATIONS: This is day 4 of treatment with meropenem. The patient has been receiving doses of IV IG. PHYSICAL EXAMINATION: Vital Signs: Temperature is 98.6 degrees, pulse 60, respirations 17, blood pressure 162/90. General: This is an ill-appearing elderly female. She actually looks better in the past 2 days than she had when she came in. She is in no acute distress. Head, eyes, ears, nose, and throat: She can hear my spoken words and see near objects. She does not have any white patches in her mouth. Neck: There is no pain with movement. Thorax: The patient has a Port-A- Cath on the left side. The site is not swollen or draining. Lungs: Clear to auscultation. Cardiovascular: Heart rate is regular. Abdomen: Soft and nontender. LAB AND X-RAY: CBC shows a white count of 10,650, hemoglobin 9.5, and platelet count 127,000. Creatinine is 1.3, GFR is 48. Chest x-ray shows bibasilar atelectasis with vascular congestion. ASSESSMENT AND PLAN: The patient's fever and neutropenia have resolved. She has an immunoglobulin deficiency but she has received immunoglobulin infusions in the hospital. Unfortunately, she has a low IgA and there is no replacement product for IgA. I think the patient may be able to be discharged soon on oral antibiotics. Regarding the patient's immunoglobulin deficiency, I will let Dr. Hendricks decide if the patient should continue with immunoglobulin infusions. COMORBIDITIES: In this patient, she has chronic lymphocytic leukemia for which she is taking chemotherapy. She also has an immunoglobulin deficiency probably secondary to the chronic lymphocytic leukemia. As regarding the patient's immunoglobulin deficiency, I will turn that over to Dr. Hendricks who is the patient's oncologist as to whether he wants to continue treating with IVIG. cc: MD Artur Mae MD
--- NOTE | 2019-06-09 15:34 | Diag Imaging Result Document ---
PROCEDURE NAME: MYOCARDIAL PERF SCAN, STR/REST - 06/09/2019 SUMMARY: The patient was administered 10.1 mCi of technetium-99m sestamibi, after which resting cardiac images were obtained. Patient was also administered Lexiscan 0.4 mg intravenously after which the heart rate went from 60 beats per minute to 96 beats per minute and the blood pressure went from 182/90 to 158/74. With Lexiscan, the patient reported very transient moderate chest discomfort. Following the administration of Lexiscan, the patient was administered 33.0 mCi of technetium-99m sestamibi, after which gated stress cardiac images were obtained. Baseline ECG demonstrated sinus rhythm and was within normal limits. With exercise, the patient manifests diffuse T-wave flattening but no significant ST-segment shifts. SPECT images were reconstructed in the short, horizontal long, and vertical long axes. Review of these images demonstrated homogeneous uptake of radiopharmaceutical in both stress and resting images. Gated images demonstrate a calculated left ventricular ejection fraction of 78% with symmetrical wall motion/thickening. CONCLUSIONS: 1. Adequate response to Lexiscan. 2. Clinically, the patient reported very transient moderate chest discomfort with Lexiscan. 3. Electrocardiographically, there were no diagnostic ST-segment changes on ECG following the administration of Lexiscan. 4. Normal Lexiscan sestamibi images. cc: MD Kevan Jin MD
--- NOTE | 2019-06-09 15:50 | PROGRESS NOTE ---
DATE: 06/09/2019 Ms Solis is feeling much better. Remains afebrile, temperature 98.5 degrees, pulse 63, respirations 16, blood pressure 182/80. Last 4 blood pressures 138/58, 166/83, 136/72, 182/80. Pupils are equal and round.Lungs: Clear in all lung lombardi. Cardiovascular: Regular rhythm and rate without murmur or S3. Abdomen: Soft. Skin: Warm and dry. Urine output is 1500 mL. ASSESSMENT AND PLAN: 1. Patient admitted with neutropenic fever, right lung pneumonia, received immunoglobulin. This is the 4th day of meropenem, x-ray looks clear and she is probably go home tomorrow. 2. Chronic lymphocytic leukemia. 3. Immunoglobulin deficiency. 4. Osteoarthritis, appears improved. Hemodynamically appears stable. Hopefully can go home in the morning. Her white count is up to 10,650, hematocrit is 29, platelet count 127,000. cc: MD Artur Sullivan MD
[2019-06-09] MEDS: COUMADIN PO SCH (20:59)
[2019-06-09] MEDS: ATIVAN PO SCH (20:59)
[2019-06-10] MEDS: TYLENOL PO PRN (00:25)
[2019-06-10] MEDS: XOPENEX NEB INH SCH ×4 (03:54→21:58)
[2019-06-10] MEDS: PROTONIX IV SCH (07:21)
[2019-06-10] MEDS: ZOFRAN PO PRN (08:04)
[2019-06-10] MEDS: MERREM 1 GM in NS 50 ML IV SCH (09:17)
[2019-06-10] MEDS: NORCO-10 PO PRN (09:17)
[2019-06-10] MEDS: MIRALAX PO SCH ×2 (09:18→21:22)
[2019-06-10] MEDS: LACTULOSE PO SCH ×2 (09:18→21:22)
[2019-06-10] MEDS: TOPROL XL PO SCH (09:18)
[2019-06-10] MEDS: NS NEB INH SCH ×2 (09:55→16:03)
[2019-06-10 10:35] LABS: INR 1.48; PROTIME 18.2 Seconds (11.0-16.0)
--- NOTE | 2019-06-10 12:46 | INFECTIOUS DISEASE PROGRESS NO ---
DATE: 06/10/2019 PRESENT ILLNESS: The patient was admitted with neutropenic fever and a right lung pneumonia and immunoglobulin deficiency. MEDICATIONS: She has been treated with meropenem, and she has received doses of IVIG. PHYSICAL EXAMINATION: Vital Signs: Temperature is 98 degrees, pulse 65, respirations 20, blood pressure 180/70. General: This is an ill-appearing elderly female. She is in no acute distress. Head/eyes/ears/nose/throat: She can hear my spoken words and see near objects. She does not have any white coating of her tongue. The patient has a Port-A-Cath present. The site is not erythematous or swollen. Lungs: Clear to auscultation. Cardiovascular: Regular heart rate. Abdomen: Soft and nontender. LAB AND X-RAY: There is no new lab or x-ray for today. ASSESSMENT AND PLAN: The patient's neutropenic fever has resolved. Her pneumonia has resolved based on the last chest x-ray. The patient received immunoglobulin fusions for her immunoglobulin deficiency and see Dr. Hendricks will be managing the immunoglobulin treatment. I am going to discontinue her antibiotic, namely meropenem. I am going to sign off the patient's case, but I am available to see her on an as-needed basis. COMORBIDITIES: The patient has chronic lymphocytic leukemia. It appears that because of that she also has an immunoglobulin deficiency. The patient is receiving chemotherapy for her chronic lymphocytic leukemia. As I mentioned above, I am signing off the patient's case, but I am available to see her on a p.r.n. basis. cc: MD Artur Mae MD
--- NOTE | 2019-06-10 13:28 | HEMO/ONC PROGRESS NOTE ---
DATE: 06/10/2019 HISTORY OF PRESENT ILLNESS/SUBJECTIVE: The patient states that she is not feeling very good this morning. She says she has some pain in her stomach and is being given protonix. She describes an overall general feeling of not feeling well enough to go home yet. She complains of a productive cough. She has been afebrile over the last few days. She had no significant events overnight. OBJECTIVE: Vital Signs: Temperature 98.1 degrees, pulse rate 67, respiratory rate 18, blood pressure 176/76, O2 saturation 99% on nasal cannula at 2 L, 7/10 head, neck, and abdominal pain. Physical Examination: General: This is an elderly female in no acute distress. Well-developed, well- nourished. Skin: Warm, dry, and intact without rashes or lesions. HEENT: Sclerae are anicteric. PERRLA. Oral mucosa is pink and moist. Cardiovascular: Normal S1, S2. Heart rate and rhythm were regular. Respiratory: No signs of respiratory distress. Lung sounds were clear to auscultation. No adventitious breath sounds. Abdomen: Soft, without distention. She has guarding to palpation. Musculoskeletal: Upper and lower extremities are without edema or tenderness. Neurological: Awake, alert, and oriented x3. No focal motor deficits noted. The patient only had a PT 18.2 and INR 1.48 drawn today. Stress Test: The patient had a normal stress test. ASSESSMENT: 1. Febrile neutropenia, resolved. 2. Chronic lymphocytic leukemia. 3. Immunoglobulin deficiency, treated. 4. Pneumonia, resolved per last chest x-ray. PLAN: The patient's pneumonia and neutropenic fever have resolved. The patient is ready for discharge per our service. We will follow up with her with weekly labs checked in our clinic. Her CLL is well controlled. We will continue to follow the patient for hypogammaglobulinemia. Dictated by TINO Henao for Diego Hendricks MD Patient seen and examined. As above. Discussed with Dr. Chacko. Febrile neutropenia has resolved. She received IVIG therapy and towards the end of it developed chest discomfort. Stress test was performed and is negative. I will sign off at this time. We will follow her up outpatient. Diego Hendricks M.D. cc: MD Artur Santillan MD [facility]
--- NOTE | 2019-06-10 17:10 | PROGRESS NOTE ---
DATE: 06/10/2019 SUBJECTIVE: She does feel better. She aches all over her tummy and her neck, but overall feels better. Breathing better. OBJECTIVE: Temperature 98.0 degrees, pulse 55, respirations 18, blood pressure 177/78. Pupils are equal and round. Lungs are clear in all lung lombardi. Cardiovascular: Regular rhythm and rate without murmur or S3. Urine output: 800 mL. ASSESSMENT AND PLAN: 1. Febrile neutropenia, resolved. 2. Chronic lymphocytic leukemia. 3. Immunoglobulin deficiency. 4. Pneumonia, which is resolved. We suspect the neutropenia was from medication; losartan/hydrochlorothiazide is our suspicion. Hope to send her home tomorrow. We will follow up with her on weekly lab. Her CLL appears well controlled. cc: MD Artur Sullivan MD
[2019-06-10] MEDS: ATIVAN PO SCH (21:20)
[2019-06-10] MEDS: COUMADIN PO SCH (21:20)
[2019-06-11] MEDS: XOPENEX NEB INH SCH ×2 (03:28→09:47)
[2019-06-11] MEDS: PROTONIX IV SCH (06:07)
[2019-06-11 07:17] LABS: BASO# 0.03 X1000 (0.0-0.2); BASO% 0.6 % (0.0-0.8); EOS# 0.16 X1000 (0.0-0.7); EOS% 3.2 % (0.0-10.0); HEMATOCRIT 30.8 % (37.0-47.0); HEMOGLOBIN 9.9 g/dL (12.0-16.0); IMM GRAN# 0.35 X1000 (0.0-0.04); IMM GRAN% 7.1 % (0.0-0.5); LYMPH# 0.74 X1000 (1.2-3.4); MCH 25.1 PG (27-31); MCHC 32.1 g/dL (33-37); MCV 78.2 FL (81-99); MONO# 0.62 X1000 (0.11-0.59); MONO% 12.6 % (1.7-9.3); MPV 10.9 FL (7.4-10.4); NEUT# 3.04 X1000 (1.4-6.5); NEUT% 61.5 % (42.2-75.2); PLT 124 X1000 (130-400); RBC 3.94 XMIL (4.2-5.4); RDW 15.9 % (11.5-14.5); WBC 4.94 X1000 (4.8-10.8)
[2019-06-11 07:26] LABS: INR 1.58; PROTIME 19.2 Seconds (11.0-16.0)
[2019-06-11 07:36] LABS: CREATININE 1.2 mg/dL (0.5-0.9); POTASSIUM 3.8 mmol/L (3.5-5.1)
[2019-06-11 07:42] LABS: BANDS 4 % (0-1); LYMPHS 18 % (21-51); MONO 6 % (1-9); SEGS 66 % (42-75)
[2019-06-11 07:43] LABS: POIKILOCYTOSIS 1+
[2019-06-11 07:47] VITALS: BP 194/82
[2019-06-11] MEDS: LACTULOSE PO SCH (08:24)
[2019-06-11] MEDS: MIRALAX PO SCH (08:25)
[2019-06-11] MEDS: TOPROL XL PO SCH (08:55)
--- NOTE | 2019-06-11 09:28 | DISCHARGE SUMMARY ---
ADMISSION DATE: 06/04/2019 DISCHARGE DATE: 06/11/2019 HISTORY: This is an 78-year-old patient of mine with past medical history significant for chronic lymphocytic leukemia (CLL), hypertension, osteoarthritis, osteopenia, reflux disease, atrial fibrillation and chronic anticoagulation. She has a history of angioedema secondary to BIANKA inhibitors and nonsteroidal anti-inflammatory agents. She has a history of scoliosis. She presents with evaluation for fever and the patient had medications adjusted per Cardiology fairly recently, started on losartan/ hydrochlorothiazide combination and metoprolol therapy started about a month ago. She developed increased fatigue and over the course of the week her condition declined. She was seen by Dr. Hendricks the day before admission as routine followup for CLL. Her CBC was performed and the patient was found to be neutropenic. She had an injection of Neupogen. In followup the patient felt worse and temperature was noted to be 100.8. On arrival, patient noted to have a temperature of a 102 degrees. She was transferred to the emergency department and had full evaluation. Her white blood cell count was 1550, 0 neutrophils. Chest x-ray performed with no evidence of acute disease. PAST MEDICAL HISTORY: 1. History of chronic lymphocytic leukemia (CLL) followed by Dr. Hendricks. 2. Hypertension. 3. Osteoarthritis. 4. History of deep venous thrombosis. 5. Osteopenia. 6. Reflux disease. 7. Atrial fibrillation which is paroxysmal. 8. History of angioedema. 9. Scoliosis. HOSPITAL COURSE: She was admitted to the hospital and started on antibiotics and put in isolation and felt like she had criteria for sepsis. We did give her quite a bit of fluid. She had nondescript abdominal discomfort and noticed oral thrush. Dr. Hendricks followed. It was thought that the neutropenia was possibly secondary to her medications, the losartan/hydrochlorothiazide in particular, so these were stopped and she was given Neupogen. She showed some steady improvement. Dr. Moses was consulted and she had profound immunoglobulin deficiency. He gave her, I think, 2 immunoglobulin infusions. The first one she had a little bit of bleeding from the GI tract, the second one she seemed to get diaphoretic and short of breath and drop her pressure. We moved her to the unit. She showed steady improvement. Interestingly as her white count came up, we saw some infiltrates on the x-ray and these cleared. Her blood counts on the day of discharge where WBC 4940 with 61% neutrophils, hematocrit 30, hemoglobin 9.9, platelet count 224,000. Sodium 141, potassium 3.8 chloride 105 BUN 13, creatinine 1.2. PLAN: Plan to discharge her home today to follow up with Dr. Hendricks in a week and I will see her back in my office in a couple of weeks. She can take Tylenol p.r.n. She is on Davidson already 10 mg q.6 hours, lactulose I put her on 30 mL b.i.d. and she had some constipation. She has Ativan 1 mg p.o. at bedtime. Toprol-XL 50 mg daily, Protonix which she was getting IV and will stop that. MiraLAX 17 g p.o. b.i.d. and her Coumadin 4 mg at bedtime. Note that pro-times remained low therapeutic. Pro-time was 19.2 and INR is 1.58. So, we will discharge her home. cc: MD Artur Sullivan MD
== END 2019-06-11 10:43 | disposition home or self-care (01) | DRG 871 ==
LOC: ED 11:19 → ICU 15:37 → 1N 06-07 00:12 → 2N 06-08 13:24
PROVIDERS: ADMIT Internal Medicine; ATTEND Emergency Medicine

== ENCOUNTER 2019-08-12 10:26 | Inpatient (IN) ==
--- NOTE | 2019-08-12 11:03 | Diag Imaging Result Doc PS360 ---
EXAM: CHEST-1 VIEW 08/12/2019 HISTORY: chest pain TECHNIQUE: AP portable upright at 1053 COMMENT: The inspiration is somewhat suboptimal and there is elevation of the left hemidiaphragm. There is some ill-defined opacity in the costophrenic angle region on the left which was also present on 06/15/2019. Overall considering differences in technique there has been no appreciable change. IMPRESSION: Stable chest. Electronically signed by Nitesh Lopez 08/12/2019 11:00 AM
--- NOTE | 2019-08-12 11:08 | EKG Report ---
Test Performed on : 08/12/2019 10:27:21 AM Test Reason : shortness of breath Blood Pressure : / mmHG Vent. Rate : 077 BPM Atrial Rate : 077 BPM P-R Int : 120 ms QRS Dur : 074 ms QT Int : 394 ms P-R-T Axes : 034 020 041 degrees QTc Int : 445 ms Normal sinus rhythm. Voltage criteria for left ventricular hypertrophy Abnormal ECG When compared with ECG of 15-JUN-2019 19:49, No significant change was found Unconfirmed Result
[2019-08-12 11:18] LABS: INR 1.83; PROTIME 21.6 Seconds (11.0-16.0)
[2019-08-12 11:19] LABS: PTT 40.5 Seconds (22.3-41.8)
[2019-08-12 11:41] LABS: BASO# 0.01 X1000 (0.0-0.2); BASO% 0.3 % (0.0-0.8); EOS# 0.08 X1000 (0.0-0.7); EOS% 2.6 % (0.0-10.0); HEMATOCRIT 35.8 % (37.0-47.0); HEMOGLOBIN 11.5 g/dL (12.0-16.0); LYMPH# 1.05 X1000 (1.2-3.4); LYMPH% 34.7 % (20.5-51.1); MCH 24.7 PG (27-31); MCHC 32.1 g/dL (33-37); MONO# 0.44 X1000 (0.11-0.59); MONO% 14.5 % (1.7-9.3); MPV 11.1 FL (7.4-10.4); NEUT# 1.45 X1000 (1.4-6.5); NEUT% 47.9 % (42.2-75.2); PLT 197 X1000 (130-400); RBC 4.65 XMIL (4.2-5.4); RDW 16.9 % (11.5-14.5); WBC 3.03 X1000 (4.8-10.8)
[2019-08-12 13:03] LABS: ALB/GLOB RATIO 1.7; ALBUMIN 4.3 g/dL (3.5-5.0); CALCIUM 9.5 mg/dL (8.8-10.2); CREATININE 1.2 mg/dL (0.5-0.9); POTASSIUM 4.2 mmol/L (3.5-5.1); TOTAL BILIRUBIN 0.23 mg/dL (0.20-1.00); TOTAL PROTEIN 6.8 g/dL (6.3-8.3)
--- NOTE | 2019-08-12 13:56 | EKG Report ---
Test Performed on : 08/12/2019 1:43:08 PM Test Reason : chest pain Blood Pressure : / mmHG Vent. Rate : 058 BPM Atrial Rate : 058 BPM P-R Int : 130 ms QRS Dur : 096 ms QT Int : 468 ms P-R-T Axes : 032 026 033 degrees QTc Int : 459 ms Sinus bradycardia. Increased R/S ratio in V1, consider early transition or posterior infarct Abnormal ECG When compared with ECG of 12-AUG-2019 10:27, (Unconfirmed) No significant change was found Unconfirmed Result
[2019-08-12] MEDS ORDERED: NITROGLYCERIN SL ONE (15:18)
--- NOTE | 2019-08-12 16:31 | PROVIDER DOCUMENTATION ---
This chart was entered by Estefany Herring Scribe, acting as scribe for Vikram Nix MD. HPI-Chest Pain - General Chief Complaint: Chest Pain Stated Complaint: CP,SOB Time Seen by Provider: 08/12/19 10:39 Source: patient Allergies/Adverse Reactions: Patient Allergies Allergy/AdvReac Type Severity Reaction Status Date / Time BIANKA Inhibitors Allergy Severe bradycardia Verified 08/12/19 11:07 naproxen Allergy Severe bleeding Verified 08/12/19 11:07 Penicillins Allergy Severe SWELLING Verified 08/12/19 11:07 Sulfa (Sulfonamide Allergy Severe SWELLING Verified 08/12/19 11:07 Antibiotics) [Sulfa(Sulfonamide Antibiotics)] propoxyphene napsylate * Allergy Intermediate SWELLING Verified 08/12/19 11:07 [From Dc[facility]ola 100] Home Medications: Home Medication List Medication Instructions Recorded Confirmed Last Taken Type Lorazepam 1 mg PO QHS 03/23/17 08/12/19 08/11/19 History Warfarin Sodium 4 mg PO QHS 03/23/17 08/12/19 08/11/19 History Hydrocodone/APAP 10 mg/325 mg 1 ea PO Q6H PRN PRN tab 04/25/19 08/12/19 08/10/19 Rx [[place]-10] Metoprolol Succinate [Toprol Xl] 50 mg PO DAILY 06/04/19 08/12/19 08/11/19 History Acetaminophen [Tylenol] 650 mg PO Q4H PRN PRN tab 06/11/19 08/12/19 08/09/19 Rx Hydralazine [Apresoline] 25 mg PO Q8H PRN PRN #30 tab 06/15/19 08/12/19 08/11/19 Rx Amlodipine Besylate 1 tab PO DAILY 08/12/19 08/12/19 08/12/19 History Clonidine [Catapres] 1 tab PO BID 08/12/19 08/12/19 08/11/19 History Triamterene/Hydrochlorothiazid 1 cap PO DIRECTED 08/12/19 08/12/19 Unknown History [Dyazide 37.5-25 Capsule] - History of Present Illness-CP Nature of Presenting Problem: Patient is a 78 year old female who presents with chest pain. States chest pain radiates to left side neck and left arm. Report having shortness of breath for the last [address] Kirkpatrick recently and was on her way to have blood work done then chest pain started. Denies taking aspirin and nitro today. Location: reports: central Chest Pain Radiation: reports: arms (left), neck (left) Quality of Pain: reports: aching Severity in ED: mild Onset/Duration: this morning Timing: still present Context/Activities at Onset: reports: light activity Associated Symptoms: reports: nausea, shortness of breath Nitro Today/Relief: no nitro taken today Aspirin Treatment Today: no aspirin today Similar Symptoms Previously?: No Recently Seen Here or By Another Healthcare Provider: Yes Review of Systems - Adult - REVIEW OF SYSTEMS - ADULT Constitutional: reports: no symptoms reported Eyes: reports: no symptoms reported Ears, Nose, Mouth & Throat: reports: no symptoms reported Cardiovascular: reports: see HPI, chest pain. denies: irregular heart rate, palpitations Respiratory: reports: see HPI, shortness of breath. denies: cough, wheezing Gastrointestinal: reports: see HPI, nausea. denies: abdominal pain, diarrhea, vomiting Genitourinary: reports: no symptoms reported Musculoskeletal: reports: no symptoms reported Integumentary: reports: no symptoms reported Neurological: reports: no symptoms reported Psychiatric: reports: no symptoms reported Endocrine: reports: no symptoms reported Hematologic/Lymphatic: reports: no symptoms reported Allergic/Immunologic: reports: no symptoms reported All Other Systems: Reviewed and Negative Past History - Adult - PAST MEDICAL HISTORY-ADULT Review of Records: reports: Old Records Reviewed, Nursing Assessment Review, Medications Reviewed, Social history reviewed & non-contributory. Major Childhood Illnesses: reports: history unknown Cardiovascular: reports: A-Fib, HTN, other (DVT) Respiratory: reports: denies history Gastrointestinal: reports: GERD Obstetrical/Gynecological: reports: denies history Genitourinary: reports: denies history Musculoskeletal: reports: denies history Neurological: reports: denies history Psychiatric: reports: depression Endocrine/Immune: reports: Leukemia (in relapse) Other Conditions: reports: cataract/glaucoma, other - PRIOR SURGERIES/PROCEDURES Surgical/Procedure History: reports: appendectomy, cholecystectomy, hysterectomy , indwelling device (port a cath left anterior chest wall), other (cataract removal; IVC filter) - PRIOR HOSPITALIZATIONS Prior Hospitalizations: reports: none - IMMUNIZATION STATUS Childhood Immunizations: See Nurse Assessment Flu Vaccine: See Nurse Assessment - FAMILY HISTORY Family History: reviewed, not pertinent - SOCIAL HISTORY Smoking: denies Substance Use: denies Physical Exam-General - PHYSICAL EXAM-ADULT Initial Vital Signs Reviewed: Yes - CONSTITUTIONAL General Appearance: alert, no apparent distress. negative: lethargic - HEAD, EARS, NOSE, MOUTH & THROAT HENMT: normocephalic/atraumatic, moist mucous membranes. negative: angioedema - RESPIRATORY Respiratory: chest non-tender, lungs clear, normal breath sounds. negative: crackles, wheezing - CARDIOVASCULAR Cardiovascular: normal peripheral pulses, regular rate, rhythm. negative: tachycardia - GASTROINTESTINAL (ABDOMEN) Abdominal Exam: normal bowel sounds, non tender, soft. negative: guarding, hernia - MUSCULOSKELETAL Extremity: normal inspection. negative: deformity, erythema, swelling - SKIN Integumentary: normal color, normal turgor, warm/dry. negative: diaphoresis, ecchymosis, jaundice - NEUROLOGIC Neurologic: grossly normal. negative: aphasia, facial droop - PSYCHIATRIC Psych/Mental Status: normal mood/affect, oriented x 3. negative: anxious - HEART Score HEART Score: History: Slightly Suspicious HEART Score: ECG: Non-Specific Repolarization Disturbance/LBBB/PM HEART Score: Age: > or = 65 Years HEART Score: Risk Factors for Atherosclerotic Disease: 1 or 2 Risk Factors HEART Score: Troponin: < or = Normal Limit Total HEART Score:: 4 Progress - PLAN OF CARE/RESULTS Progress/Plan/Lab Results: Vital Signs - 8 hr 08/12/19 10:34 08/12/19 10:42 08/12/19 10:43 Temperature 98.0 F Pulse Rate 72 65 66 Respiratory Rate 20 22 23 Blood Pressure 136/84 119/66 O2 Sat by Pulse Oximetry 96 08/12/19 10:45 08/12/19 11:00 08/12/19 11:03 Temperature Pulse Rate 67 69 67 Respiratory Rate 25 H 22 17 Blood Pressure 138/79 O2 Sat by Pulse Oximetry 98 100 08/12/19 11:15 08/12/19 11:30 08/12/19 11:31 Temperature Pulse Rate 63 61 63 Respiratory Rate 20 18 18 Blood Pressure 124/70 O2 Sat by Pulse Oximetry 98 99 100 08/12/19 11:45 08/12/19 12:00 08/12/19 12:01 Temperature Pulse Rate 60 59 L 61 Respiratory Rate 17 19 18 Blood Pressure 136/73 O2 Sat by Pulse Oximetry 100 100 100 08/12/19 12:15 08/12/19 12:30 08/12/19 12:31 Temperature Pulse Rate 62 59 L 58 L Respiratory Rate 22 19 18 Blood Pressure 133/77 O2 Sat by Pulse Oximetry 99 100 99 08/12/19 12:45 08/12/19 13:00 08/12/19 13:01 Temperature Pulse Rate 63 62 61 Respiratory Rate 19 19 16 Blood Pressure 131/74 O2 Sat by Pulse Oximetry 98 100 100 08/12/19 13:15 08/12/19 13:30 08/12/19 13:32 Temperature Pulse Rate 64 65 61 Respiratory Rate 18 16 17 Blood Pressure 127/85 O2 Sat by Pulse Oximetry 100 100 100 08/12/19 13:45 08/12/19 14:00 08/12/19 14:02 Temperature Pulse Rate 64 60 59 L Respiratory Rate 25 H 23 25 H Blood Pressure 143/75 O2 Sat by Pulse Oximetry 99 93 L 98 08/12/19 14:15 08/12/19 14:18 08/12/19 14:30 Temperature Pulse Rate 64 61 58 L Respiratory Rate 17 24 22 Blood Pressure 150/85 O2 Sat by Pulse Oximetry 100 100 99 08/12/19 14:31 08/12/19 14:45 08/12/19 15:00 Temperature Pulse Rate 58 L 62 58 L Respiratory Rate 20 16 23 Blood Pressure 147/71 O2 Sat by Pulse Oximetry 98 100 100 08/12/19 15:01 08/12/19 15:15 08/12/19 15:30 Temperature Pulse Rate 59 L 60 62 Respiratory Rate 18 20 18 Blood Pressure 132/71 O2 Sat by Pulse Oximetry 100 99 100 08/12/19 15:31 08/12/19 15:45 Temperature Pulse Rate 63 65 Respiratory Rate 19 23 Blood Pressure 133/87 O2 Sat by Pulse Oximetry 100 100 Laboratory Results - last 24 hr 08/12/19 08/12/19 08/12/19 11:03 11:20 11:20 WBC 3.03 L RBC 4.65 Hgb 11.5 L Hct 35.8 L MCV 77.0 L MCH 24.7 L MCHC 32.1 L RDW Std Deviation 16.9 H Plt Count 197 MPV 11.1 H Immature Gran % (Auto) 0.0 Neut % (Auto) 47.9 Lymph % (Auto) 34.7 [place] % (Auto) 14.5 H Eos % (Auto) 2.6 Baso % (Auto) 0.3 Immature Gran # (Auto) 0.00 Neut # (Auto) 1.45 Lymph # (Auto) 1.05 L [place] # (Auto) 0.44 Eos # (Auto) 0.08 Baso # (Auto) 0.01 PT 21.6 H INR 1.83 PTT (Actin FS) 40.5 Sodium 142 Potassium 4.2 Chloride 105 Carbon Dioxide 20 L Anion Gap 17 BUN 20 Creatinine 1.2 H Estimated GFR/1.73 m2 52 BUN/Creatinine Ratio 17 Glucose 111 H Calculated Osmolality 286 Calcium 9.5 Total Bilirubin 0.23 AST 17 ALT 11 Alkaline Phosphatase 83 Creatine Kinase Troponin T Axi-D-Mfhqzzhivne Pept Total Protein 6.8 Albumin 4.3 Globulin 2.5 Albumin/Globulin Ratio 1.7 08/12/19 08/12/19 08/12/19 11:20 11:20 13:40 WBC RBC Hgb Hct MCV MCH MCHC RDW Std Deviation Plt Count MPV Immature Gran % (Auto) Neut % (Auto) Lymph % (Auto) [place] % (Auto) Eos % (Auto) Baso % (Auto) Immature Gran # (Auto) Neut # (Auto) Lymph # (Auto) [place] # (Auto) Eos # (Auto) Baso # (Auto) PT INR PTT (Actin FS) Sodium Potassium Chloride Carbon Dioxide Anion Gap BUN Creatinine Estimated GFR/1.73 m2 BUN/Creatinine Ratio Glucose Calculated Osmolality Calcium Total Bilirubin AST ALT Alkaline Phosphatase Creatine Kinase 122 Troponin T < 0.010 Kmu-D-Jzpanxldjyy Pept 67 Total Protein Albumin Globulin Albumin/Globulin Ratio 08/12/19 13:40 WBC RBC Hgb Hct MCV MCH MCHC RDW Std Deviation Plt Count MPV Immature Gran % (Auto) Neut % (Auto) Lymph % (Auto) [place] % (Auto) Eos % (Auto) Baso % (Auto) Immature Gran # (Auto) Neut # (Auto) Lymph # (Auto) [place] # (Auto) Eos # (Auto) Baso # (Auto) PT INR PTT (Actin FS) Sodium Potassium Chloride Carbon Dioxide Anion Gap BUN Creatinine Estimated GFR/1.73 m2 BUN/Creatinine Ratio Glucose Calculated Osmolality Calcium Total Bilirubin AST ALT Alkaline Phosphatase Creatine Kinase Troponin T < 0.010 Miw-U-Weyxbowjjyf Pept Total Protein Albumin Globulin Albumin/Globulin Ratio Orders Category Date Time Status CHEST-1 VIEW [RAD] Stat Exams 08/12/19 10:39 Completed BNP [PRO B-NATRIURETIC PEPTIDE] Stat Lab 08/12/19 11:20 Completed CBC WITH ELECTRONIC DIFF [HEME] Stat Lab 08/12/19 11:20 Completed CK PROFILE [SP CHEM] Stat Lab 08/12/19 13:40 Completed COMPREHENSIVE METABOLIC PANEL [CHEM] Stat Lab 08/12/19 11:20 Completed PROTIME WITH INR [COAG] Stat Lab 08/12/19 11:03 Completed PTT [COAG] Stat Lab 08/12/19 11:03 Completed TROPONIN T Stat Lab 08/12/19 11:20 Completed TROPONIN T Stat Lab 08/12/19 13:40 Completed Nitroglycerin Sl [Nitroglycerin] Med 08/12/19 15:18 Discontinued 0.4 mg SL NOW ONE EKG [EKG] Stat Ther 08/12/19 10:28 Draft EKG [EKG] Stat Ther 08/12/19 13:23 Draft Result Diagrams: 08/12/19 11:20 08/12/19 11:20 - EKG 1 Time of EKG reading by physician:: 10:27 EKG Read and Signed by:: Vikram Nix EKG Interpretation (*Must complete 3 of following elements*): Abnormal Rate: 77 Rhythm: normal sinus rhythm [place]: normal QRS: LVH (voltage criteria) [place] Interval: normal Comments: abnormal ECG 2 Time of EKG reading by physician:: 13:43 EKG Read and Signed by:: Vikram Nix EKG Interpretation (*Must complete 3 of following elements*): Abnormal Rate: 58 Rhythm: sinus bradycardia [place]: normal [place] Interval: normal Comments: increased R/S ratio in V1, consider early transition or posterior infarct - XRAY 1 XRAY Study: Chest Impression: See EMR Report ( EXAM: CHEST-1 VIEW 08/12/2019 HISTORY: chest pain TECHNIQUE: AP portable upright at 1053 COMMENT: The inspiration is somewhat suboptimal and there is elevation of the left hemidiaphragm. There is some ill-defined opacity in the costophrenic angle region on the left which was also present on 06/15/2019. Overall considering differences in technique there has been no appreciable change. IMPRESSION: Stable chest. Electronically signed by Nitesh Lopez 08/12/2019 11:00 AM 08/12/19 1100 Interpreting Physician: Nitesh Lopez MD Dictated Date/Time: 08/12/19 1100 cc: Vikram Nix MD; Brednon Chacko MD) - CONSULTS/PCP/HOSPITALIST Notification #1 *Consult/PCP/Hospitalist*: Dr. Chacko Time Discussed: 13:47 Reason/Comments: Dr. Nix consulted with Dr. Chacko about patient. Consult Disposition: other (Dr. Chacko states he thinks the chest pain is secondary to anxiety and have the troponin repeated.) #2 Consult: Dr Chacko Time Discussed: 16:10 Consult Disposition: Will see in ED, Admit Departure - Departure Date of Disposition Decision: 08/12/19 Time of Disposition Decision: 16:27 DIAGNOSIS: Chest pain Disposition: ADMITTED INPATIENT 09 Certified Medical Emergency: Emergent Condition: Fair Referrals and Follow-Ups: Brendon Chacko MD [Primary Care Provider] - - Critical Care Note This patient required my direct & personal management of CC.: No Attestation - Physician/ CHRIS Attestation Patient care was provided by Advanced Practice Provider:: No The physician spent face to face time with patient:: Yes Advanced Practice Provider documentation review:: Supervising physician onsite and consulted in the evaluation and care of this patient. The physician did have a face to face encounter with the patient. This chart was documented by the indicated scribe, (Estefany Herring Scribe) and accurately reflects the services I performed and decisions made by me, Vikram Nix MD, as attested by the provider's signature.
--- NOTE | 2019-08-12 17:29 | HISTORY AND PHYSICAL ---
HISTORY OF PRESENT ILLNESS: This is an 78-year-old patient of mine, was last here on June 04, 2019. She says for the last week she has woke up and she feels pressure in her chest. She feels short of breath. She has to lay down in bed for a couple hours. She says the pain is sharp but then it also feels like it is pushing down on her chest. She points to the left side of her sternum. There is radiation to her arm, her left shoulder and left arm. She had called Dr. Hollingsworth. He had wanted to get some blood work. When she came to the hospital she got out of the car and she had some more chest pain, so they put her in the emergency room. EKGs, troponin were negative, but continued to have lingering chest discomfort. They gave her some nitroglycerin and said she had some relief. PAST MEDICAL HISTORY: 1. History of CLL, followed by Dr. Hendricks, in remission right now. 2. Hypertension. 3. Osteoarthritis. 4. History of deep venous thrombosis. 5. Osteopenia. 6. Reflux disease. 7. Atrial fibrillation, paroxysmal. 8. History of angioedema. 9. Scoliosis. 10. Last admission on 06/04/2019. She came in with fever and she had some neutropenia and treated her with meropenem and vancomycin. We stopped her hydrochlorothiazide and losartan at that time. I put her on Apresoline. She does have hypertension and I think Dr. Hollingsworth recently put her on a diuretic as well. ALLERGIES: Allergic to penicillin, Darvocet, sulfa drugs, and I think she does not tolerate BIANKA inhibitors because angioedema. HOME MEDICATIONS: Right now we will continue amlodipine 1 a day, Catapres 1 b.i.d., Apresoline 25 mg 3 times a day, hydrocodone 10/325 one q.6 hours p.r.n., Ativan 1 mg at bedtime, Toprol 50 mg daily. She was recently put on Dyazide which is triamterene hydrochlorothiazide 37.5/25 one a day, and she is on Coumadin 4 mg at bedtime. SOCIAL HISTORY: She is retired. Denies alcohol or tobacco or illicit drugs. FAMILY HISTORY: The patient's mother passed at age 94 secondary to complications of breast cancer. Father at age 85 secondary to acute myocardial infarction. REVIEW OF SYSTEMS: General: No weight gain or loss. No fever or chills. HEENT: Unremarkable. Respiratory: No increased work of breathing or dyspnea. Cardiovascular: No chest pain or tachy palpitations until about a week ago. She does have chronic pain in her shoulders and posterior neck and she has scoliosis. PHYSICAL EXAMINATION: GENERAL: In the emergency room she is awake, alert, oriented x3. VITAL SIGNS: Temp is 98.0 degrees, pulse 65, respirations 20, blood pressure 133/87. Height is 5 feet 1 inch. Weight 132 pounds. HEENT: Pupils are equal and round. NECK: Supple. No thyromegaly. She does have distended neck veins. LUNGS: Clear in all lung lombardi. CARDIOVASCULAR: Regular rhythm and rate without murmur or S3. Carotid, radial, and femoral pulses 2+ and symmetrical. PMI nondisplaced. ABDOMEN: Soft. SKIN: Warm and dry. LABORATORY DATA: White count 3,030, hematocrit 35, hemoglobin 11, platelet count is 197,000, MCV is 77. Sodium 142, potassium 4.2, chloride 105, BUN 20, creatinine 1.2, calcium 9.5, albumin 4.3. PTT is 21, PTT is 40. Chest x-ray: Stable chest. No sign of infiltrate. Elevation of the left hemidiaphragm. She has an ill-defined opacity in the costophrenic angle in the region of the left which was also there on 06/15/2019. EKG: Normal sinus rhythm. I do not see any suspicious ST- segments. She had a myocardial perfusion scan done on 06/09/2019. Adequate response to Lexiscan clinically. Patient reported very transient moderate chest discomfort with Lexiscan. There were no ST-segment changes on EKG following administration and normal Lexiscan sestamibi images. She had a renal aorta ultrasound. No evidence of hemodynamically significant renal artery stenosis per Doppler and that was back on 06/08/2016. Echocardiogram done on 01/17/2018, left ventricular function was normal. Ejection fraction 70%. Tricuspid valve with trivial degree of regurgitation. Pulmonary artery pressure about 24 to 29 mmHg. Pulmonic valve looked good. No other valvular dysfunction. ASSESSMENT AND PLAN: 1. She is having chest pain every morning. I do not really have a good explanation for this. It is not completely reproducible musculoskeletal but it sounds like it is musculoskeletal. She does have a history of anxiety. She has had a recent Lexiscan GXT which was completely normal. Blood pressure has apparently been doing well. I am going to go ahead and observe her tonight and see if cardiology have any suggestions. 2. History of chronic lymphocytic leukemia. Counts appear stable. Appears to be in remission. 3. Hypertension. Aware. 4. Scoliosis, osteoarthritis. She has had a long history of pain in her shoulders and neck. 5. History of paroxysmal atrial fibrillation, for which she is on Coumadin. Also history of DVT in the past. We will follow her ProTime; it appears therapeutic. INR is 1.8, PTT is 21 at the present time. cc: Brendon Chacko MD
[2019-08-12] MEDS ORDERED: APRESOLINE PO PRN (18:57)
[2019-08-12] MEDS ORDERED: NORCO-10 PO PRN (18:57)
[2019-08-12] MEDS ORDERED: ZOFRAN IV PRN (18:57)
[2019-08-12] MEDS ORDERED: TYLENOL PO PRN (18:57)
[2019-08-12] MEDS ORDERED: CATAPRES PO SCH (21:00)
[2019-08-12] MEDS ORDERED: COUMADIN PO SCH (21:00)
[2019-08-12] MEDS: TYLENOL PO PRN (21:18)
[2019-08-13] MEDS: ATIVAN PO SCH (00:23)
[2019-08-13 04:51] LABS: CALCIUM 8.8 mg/dL (8.8-10.2); CREATININE 1.2 mg/dL (0.5-0.9); MAGNESIUM 2.1 mg/dL (1.5-2.7); POTASSIUM 3.9 mmol/L (3.5-5.1)
[2019-08-13] MEDS: PRILOSEC PO SCH (06:30)
--- NOTE | 2019-08-13 07:15 | EKG Report ---
Test Performed on : 08/13/2019 06:47:05 AM Test Reason : chest pain Blood Pressure : / mmHG Vent. Rate : 053 BPM Atrial Rate : 053 BPM P-R Int : 132 ms QRS Dur : 092 ms QT Int : 490 ms P-R-T Axes : 035 044 044 degrees QTc Int : 459 ms Sinus bradycardia. Nonspecific T wave abnormality Abnormal ECG When compared with ECG of 12-AUG-2019 13:43, (Unconfirmed) No significant change was found Confirmed by Mary HAGER, Rangel Davila ([id number]) on 08/13/2019 7:32:31 AM
--- NOTE | 2019-08-13 07:57 | CARDIOLOGY CONSULTATION ---
DATE: 08/13/2019 REQUESTING PHYSICIAN: Consultation requested by Dr. Chacko. REASON FOR CONSULTATION: Chest discomfort, weakness, dizziness. HISTORY: Ms. Solis is an 78-year-old female that I normally follow at my office. I had seen her recently on July 08. The patient, since then, has reported feeling dizzy, weak, somewhat short of breath. Yesterday, she went to have blood work and she complained of chest pains. Therefore, she was admitted to the hospital. Upon admission, they have done blood work including several troponin levels, all of them are negative for a total of 4. She had an EKG that showed sinus bradycardia, nonspecific T-wave abnormality. INR is 1.83. Platelet count 197,000. This morning, at about 1:40 in the morning, she started having significant bradycardia and then she developed consecutive pulses, one as long as 8 seconds, associated with junctional escape beats. The patient is concerned about that. She is not having chest pain at this moment. I am seeing her about 7:10 in the morning. PAST MEDICAL HISTORY: Positive for a diagnosis of hypertension for many years. She has had previous deep venous thrombosis. She has had chest pains in the past. Recent nuclear stress test was done on her on 06/09/2019 that showed no evidence of ischemia. Of note, previous CT scan of the chest had shown no evidence of coronary calcification. She has had deep venous thrombosis and pulmonary embolism years ago. She has been taking warfarin. She has chronic lymphocytic leukemia, which is being followed by Dr. Hendricks. The patient also has a history of alpha thalassemia. 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 She has had a fever related to lower levels of immunoglobins and neutropenia. Currently, she is not having any fever or infection. SURGICAL HISTORY: Positive for appendectomy, cholecystectomy, hysterectomy. SOCIAL HISTORY: She is a . She is retired. She has children. FAMILY HISTORY: Sudden , myocardial infarction in her father. HOME MEDICATIONS: At the time of this admission included acetaminophen 650 every 4 hours, amlodipine 5 mg daily, clonidine 0.1 mg twice a day, hydralazine 25 mg every 8 hours, triamterene/hydrochlorothiazide 37.5/25 mg 3 days a week. She also takes warfarin 4 mg at bedtime, metoprolol XL 50 mg once a day. ALLERGIES: BIANKA inhibitor, Naprosyn, penicillin, sulfa drugs, and Darvocet. REVIEW OF SYSTEMS: Lately, she has been feeling puny. Having weak spells, dizzy spells. She has been identified as a case of noncardiac chest pains before. PHYSICAL EXAMINATION: This morning, blood pressure 104/61, temperature 97.7 degrees, pulse 65, respirations 18. She is awake, alert, in no distress. HEENT: Unremarkable. Chest: Sounds clear to auscultation and percussion. Heart: Sounds are regular and rhythmic. I do not hear a gallop or murmur. Abdomen: Nontender, soft. No masses, no hepatomegaly. Extremities: Show good pulses. No peripheral edema. Neurologic: Examination nonfocal. Moves all 4 extremities. IMPRESSION: 1. Patient who presented with a feeling of dizziness, dyspnea, and her quality assurance monitor body indicates the presence of significant sinus arrest, 8 second pauses. That indicates sick sinus syndrome. 2. History of hypertension. 3. History of previous deep venous thrombosis and pulmonary embolism. 4. Chronic lymphocytic leukemia. 5. History of noncardiac chest pain. RECOMMENDATIONS: At this time, I would recommend strong consideration for permanent pacemaker, either dual-chamber or single-chamber, whichever the cpr ambulance driver feels would be best, given her circumstances. We will discuss the case with the cpr ambulance driver in [place]. At this time, no other specific intervention. The patient will be hopefully transferred today. Thank you again for the opportunity to participate in her evaluation. cc: MD Brendon Hull MD
[2019-08-13] MEDS ORDERED: DYAZIDE PO SCH (09:00)
[2019-08-13] MEDS ORDERED: TOPROL XL PO SCH (09:00)
[2019-08-13] MEDS ORDERED: NORVASC PO SCH (09:00)
--- NOTE | 2019-08-13 09:57 | PROGRESS NOTE ---
DATE: 08/13/2019 SUBJECTIVE: Ms. Solis had a pretty good night. She was with some weakness and shortness of breath this morning. On monitor, detected some pauses, had up to an 8 second pause so the plan is to stop her metoprolol. Blood pressure looks good and maybe put her on a loop monitor and monitor today. She may end up having to need a pacemaker for sick sinus syndrome. OBJECTIVE: Vital signs: Temperature 98.2 degrees, pulse 58, respirations 16, blood pressure 114/66. HEENT: Pupils are equal and round. Lungs: Clear in all lung lombardi. Cardiovascular: Regular rhythm and rate without murmur or S3. Abdomen: Soft. Skin: Warm and dry. ASSESSMENT AND PLAN: 1. The patient with dizziness and shortness of breath. Telemetry indicates presence of significant sinus arrest with 8 second pauses consistent with sick sinus syndrome. We will stop her metoprolol. 2. History of hypertension. Blood pressure is under good control. 3. Previous deep venous thrombosis and pulmonary embolism. 4. Chronic lymphocytic leukemia. 5. History of noncardiac chest pain. She had a recent Lexiscan which was unremarkable, so I do not believe she is having coronary insufficiency. LABORATORY DATA: Recent review of her lab looks good. Sodium 142, potassium 3.9, chloride 105, BUN 19, creatinine 1.2. Blood sugar 133 and 112. cc: Brendon Chacko MD
[2019-08-13] MEDS: ISORDIL PO SCH ×3 (10:30→21:43)
[2019-08-13] MEDS: ASPIRIN PO SCH (10:30)
[2019-08-13] MEDS: NORVASC PO SCH ×2 (10:31→21:42)
[2019-08-13] MEDS: APRESOLINE PO SCH ×3 (10:31→21:42)
[2019-08-14] MEDS: ATIVAN PO SCH ×2 (03:09→20:19)
[2019-08-14] MEDS: PRILOSEC PO SCH (06:03)
[2019-08-14 07:32] LABS: HEMATOCRIT 37.5 % (37.0-47.0); HEMOGLOBIN 11.9 g/dL (12.0-16.0); MCH 24.6 PG (27-31); MCHC 31.7 g/dL (33-37); MCV 77.6 FL (81-99); MPV 10.7 FL (7.4-10.4); RBC 4.83 XMIL (4.2-5.4); RDW 16.9 % (11.5-14.5); WBC 3.36 X1000 (4.8-10.8)
[2019-08-14 07:35] LABS: INR 1.5; PROTIME 18.4 Seconds (11.0-16.0)
[2019-08-14 07:51] LABS: CALCIUM 9.6 mg/dL (8.8-10.2); CREATININE 1.6 mg/dL (0.5-0.9); MAGNESIUM 2.1 mg/dL (1.5-2.7)
--- NOTE | 2019-08-14 09:08 | PROGRESS NOTE ---
DATE: 08/14/2019 SUBJECTIVE: Ms. Solis states she feels better. Breathing comfortably. OBJECTIVE: Remains afebrile, temperature 98.5 degrees, pulse 67, respirations 16, blood pressure 130/64. Her pupils are equal. No distended neck veins. Lungs are clear anterolateral. Cardiovascular Examination: Regular rhythm and rate without murmur or S3. Abdomen is soft. Skin is warm and dry. ASSESSMENT AND PLAN: 1. Sinus pauses, suspect sick sinus syndrome. I have stopped her beta susie, metoprolol, and seems to be doing better. The plan is to place a loop monitor and then possibly, she will spend another night and go home. 2. History of hypertension. Blood pressure has been well controlled. 3. History of chronic lymphocytic leukemia. Blood counts look stable and are good. Her hematocrit is 37, hemoglobin 11, white count is 3360, platelet count 196,000. 4. Recently was admitted with renal insufficiency and she had afebrile neutropenia. We felt it was probably secondary to the hydrochlorothiazide and possibly losartan so that was stopped. We had recently increased her Apresoline. Hopefully, can go home in the morning. Looking at her electrolytes from this morning, sodium 139, potassium 4.0, chloride 102, BUN 25, creatinine 1.6 which has come up from 1.2 on admission. Her troponins have been unremarkable, less than 0.01. cc: Brendon Chacko MD
--- NOTE | 2019-08-14 09:15 | PROGRESS NOTE ---
DATE: 08/14/2019 ADDENDUM: Note that she had recently been in the hospital. We had stopped her hydrochlorothiazide because of concerns about neutropenia, and so I am going to stop her triamterene/hydrochlorothiazide. Dr. Hollingsworth has her on Norvasc 5 mg twice a day, Apresoline 25 mg 3 times a day, and isosorbide dinitrate 20 mg t.i.d., and will continue those. We need to continue to follow her Coumadin, but her ProTime was 18, with an INR of 1.5. cc: Brendon Chacko MD
--- NOTE | 2019-08-14 10:00 | CARDIOLOGY PROGRESS NOTE ---
DATE: 08/14/2019 CHIEF COMPLAINT: Patient feeling dizzy, near syncopal. SUBJECTIVE: The patient has not had any further episodes of sinus arrest. The A second pulse happened last night about 1:30 in the morning; however, this past night, nothing has happened. We put on hold Toprol and has switched her medicines to isosorbide dinitrate and hydralazine. I had a long conversation with Dr. Josemanuel Menendez who is the steel turner who recommended to stop Toprol and consider implanting a loop recorder on her for a closer monitoring. Because she has an indwelling catheter in the left subclavian vein, this patient would be really prone to catching systemic infections. Particularly given her history of CLL, she may be more prone to sepsis and skin infections. So, we should proceed cautiously prior to making a final decision about implanting a pacemaker. Patient is feeling better this morning. OBJECTIVE: VITAL SIGNS: Temperature is 98.1 degrees, pulse 63, blood pressure 123/56, respirations 15. GENERAL: She is awake, in no distress. HEENT: Unremarkable. CHEST: Sounds clear to auscultation and percussion. HEART: Sounds are regular and rhythmic. I do not hear a gallop or murmur. ABDOMEN: Nontender. EXTREMITIES: Show no edema. NEUROLOGICAL: Follows commands, moves 4 extremities. Her INR was 1.83 yesterday. BUN 19, creatinine 1.2. IMPRESSION: 1. Patient who has episode of sinus arrest. This may have been aggravated by medication. She probably has some degree of sick sinus syndrome. 2. Chronic lymphocytic leukemia. 3. Hypertension. 4. History of DVT and pulmonary embolism in the past. 5. History of noncardiac chest pain. RECOMMENDATIONS: At this point in time after discussion with Dr. Menendez and Dr. Brendon Chacko, I have advised the patient to have a loop recorder implanted. I have asked Dr. Fito Rogel to do the procedure today. A pro-time INR has been requested. Patient is in agreement. The patient understands the little risks and complications involved with implanting that loop. cc: MD Brendon Hull MD
[2019-08-14] MEDS ORDERED: PHENERGAN IV PRN (10:03)
[2019-08-14] MEDS ORDERED: SODIUM CHLORIDE 0.9% INJ PRN (10:03)
[2019-08-14] MEDS ORDERED: CLAVE TWINSITE 32 IN 11959 ONE (10:52)
[2019-08-14] MEDS ORDERED: ANESTHESIA PB SET 88 IN 5742 ONE (10:52)
[2019-08-14] MEDS ORDERED: NS 250 ML ONE (10:52)
[2019-08-14] MEDS ORDERED: ZOFRAN ONE (10:57)
--- NOTE | 2019-08-14 11:17 | OPERATIVE NOTE ---
PROCEDURE DATE: PROCEDURE: Implantable loop recorder. INDICATION: Patient with high-degree AV block, thought to possibly be due to medications. Place link to evaluate for recurrence off of medications. PROCEDURE IN DETAIL: Ms. Solis is an 78-year-old female who was brought to the catheterization laboratory in fasting state. She was prepped in the usual sterile fashion. She was anesthetized over the left chest wall. Stab incision was made with the provided device with blunt dissection. The device was implanted via the provided device. Good hemostasis. Wound was closed with Dermabond. No apparent complications. The device is a [employer] LINQ. Model number is LNQ11. Serial number [id number]. cc: MD Brendon Morris MD
[2019-08-14] MEDS: APRESOLINE PO SCH ×3 (13:01→20:12)
[2019-08-14] MEDS: NORVASC PO SCH ×2 (13:01→20:18)
[2019-08-14] MEDS: ASPIRIN PO SCH (13:02)
[2019-08-14] MEDS: ISORDIL PO SCH ×3 (13:02→20:12)
--- NOTE | 2019-08-14 13:58 | EKG Report ---
Test Performed on : 08/14/2019 1:46:26 PM Test Reason : LOW HR Blood Pressure : / mmHG Vent. Rate : 085 BPM Atrial Rate : 085 BPM P-R Int : 120 ms QRS Dur : 088 ms QT Int : 386 ms P-R-T Axes : 023 025 037 degrees QTc Int : 459 ms Normal sinus rhythm. Possible Left atrial enlargement Left ventricular hypertrophy with repolarization abnormality Abnormal ECG When compared with ECG of 13-AUG-2019 06:47, Vent. rate has increased BY [address] no longer elevated in Anterolateral leads Confirmed by Rangel Hernandez MD ([id number]) on 08/14/2019 2:32:02 PM
[2019-08-14] MEDS: ZOFRAN IV PRN (15:51)
[2019-08-14] MEDS: MILK OF MAGNESIA PO PRN (20:19)
[2019-08-15] MEDS: PRILOSEC PO SCH (06:12)
[2019-08-15 06:28] LABS: CALCIUM 9.9 mg/dL (8.8-10.2); CREATININE 1.6 mg/dL (0.5-0.9); MAGNESIUM 2.5 mg/dL (1.5-2.7); POTASSIUM 4.6 mmol/L (3.5-5.1)
[2019-08-15] MEDS: ISORDIL PO SCH ×3 (09:07→20:48)
[2019-08-15] MEDS: APRESOLINE PO SCH ×3 (09:07→20:48)
[2019-08-15] MEDS: ASPIRIN PO SCH (09:07)
[2019-08-15] MEDS: NORVASC PO SCH ×2 (09:08→20:48)
--- NOTE | 2019-08-15 10:17 | PROGRESS NOTE ---
DATE: 08/15/2019 SUBJECTIVE: Ms. Solis just does not feel good today. She says she feels rough. She feels a little short of breath and feels like her heart is racing. OBJECTIVE: Vital Signs: Temperature 98.1 degrees, pulse 89, respirations 15, blood pressure 146/75. HEENT: Pupils are equal round. Lungs: Clear in all lung lombardi. Cardiovascular: Regular rhythm and rate without murmur or S3. Abdomen: Soft. Skin: Warm and dry. ASSESSMENT AND PLAN: 1. She has had significant sinus pauses which I believe are symptomatic. We have stopped her beta susie which is metoprolol and has a loop monitor. She had a spell yesterday where her blood pressure seemed to drop, so appears to have a high degree AV block and I suspect we are going to need a pacemaker. 2. She has a Port-A-Cath in the left side which may need to be moved if we are considering pacemaker. She still does not feel very good. We have her on Norvasc 5 mg twice a day, Apresoline 25 mg 3 times a day, isosorbide dinitrate 20 mg t.i.d. Her blood pressures look good. We will see what Cardiology wants to do. cc: Brendon Chacko MD
[2019-08-15] MEDS: TYLENOL PO PRN ×2 (10:50→23:16)
[2019-08-15] MEDS: ZOFRAN IV PRN ×2 (10:51→15:36)
[2019-08-15] MEDS: ATIVAN PO SCH (20:48)
[2019-08-15] MEDS: MILK OF MAGNESIA PO PRN (23:16)
[2019-08-16] MEDS: PRILOSEC PO SCH (06:09)
[2019-08-16] MEDS: APRESOLINE PO SCH ×3 (08:29→20:09)
[2019-08-16] MEDS: ISORDIL PO SCH ×3 (08:29→20:09)
[2019-08-16] MEDS: ASPIRIN PO SCH (08:29)
[2019-08-16] MEDS: NORVASC PO SCH ×2 (08:29→20:09)
[2019-08-16] MEDS: ZOFRAN IV PRN ×2 (10:35→20:47)
--- NOTE | 2019-08-16 10:40 | PROGRESS NOTE ---
DATE: 08/16/2019 SUBJECTIVE: Ms. Solis says she does not feel good today. She is nauseated. OBJECTIVE: Vital signs: Her blood pressure looks good 146/75, 151/91, 143/84, 119/69. She has not had any chest pain. Temperature is 98.1 degrees, has remained afebrile. Lungs: Clear anterolateral. Cardiovascular: Regular rhythm regular rhythm and rate. Abdomen: Soft. Skin is warm and dry. ASSESSMENT AND PLAN: 1. Suspect sick sinus syndrome with bradycardia. She has had paroxysmal atrial fibrillation as well. We have documented 8 sinus pauses. We have stopped all of her beta blockers and adjust her medications. We need to keep her here another 48 hours, continue to observe. She had an episode that we do not have corresponding electrical tracings with but suspect it was another pause. 2. Chronic lymphocytic leukemia. Blood counts look stable. She is in remission. 3. Osteoarthritis. 4. General anxiety. I have some Phenergan for nausea. She has complained of constipation. I will put her on some MiraLAX as well. 5. Her electrolytes from yesterday, sodium 140, potassium 4.6, chloride 103, BUN 26, creatinine 1.6. cc: Brendon Chacko MD
--- NOTE | 2019-08-16 11:44 | CARDIOLOGY PROGRESS NOTE ---
DATE: 08/16/2019 CHIEF COMPLAINT: Near syncope, dizziness. SUBJECTIVE: Mrs. Solis has not been feeling very well. Heart rate has picked up. I guess that is affect of hydralazine and Isordil. She has felt somewhat nauseous and dizzy. Telemetry has not shown any further episodes of significant pauses, although, the day when they implanted the loop recorder and was taken back to her room, she had an episode where she felt weak and almost passed out. The nurse documented clinically a pause of 30, however, there was telemetry on board at that time. At any rate, she was taken to the Intermediate Care Unit and she has not shown any further episodes of arrhythmia. OBJECTIVE: Her son is at the bedside. Vital signs: Blood pressure 119/69, temperature 98.1, pulse 94, respirations 17. General: She is awake, alert, oriented, no distress. HEENT: Unremarkable. Chest: Sounds clear to auscultation and percussion. Heart: Sounds are regular, rhythmic, slightly tachycardic. Abdomen: Nontender. Extremities: Showed no edema. Neurological exam: Follows commands, moves all 4 extremities. IMPRESSION: 1. Patient who has dizziness and near syncope, suspected sick sinus syndrome. She was truly on a very small dose of beta-susie, metoprolol XL 50 mg was on board at that time and clonidine. It is certainly possible that may have precipitated a sinus arrest, however, it is too extreme in my opinion. Nevertheless, per discussion with [facility] they have recommended observation with implantable loop recorder, which was done as suggested on 08/14/2019. 2. History of hypertension. 3. History of prior deep venous thrombosis and pulmonary embolism. 4. Chronic lymphocytic leukemia under management by Hematology/Oncology. RECOMMENDATIONS: At this time, we will continue present medical therapy. We will cutdown on Isordil and hydralazine to very low doses and see how she does with that. I have suggested to keep her in the hospital under close surveillance for the next couple of days and once she is stable she may go home. We will arrange for followup with us and with the EP team. cc: MD Brendon Hull MD
[2019-08-16] MEDS: MIRALAX PO SCH (14:40)
[2019-08-16] MEDS: MILK OF MAGNESIA PO PRN (20:09)
[2019-08-16] MEDS: ATIVAN PO SCH (20:10)
[2019-08-16] MEDS ORDERED: DULCOLAX PR ONE (20:28)
[2019-08-17] MEDS: PRILOSEC PO SCH (05:59)
--- NOTE | 2019-08-17 07:51 | PROGRESS NOTE ---
DATE: 08/17/2019 SUBJECTIVE: Ms. Solis says she feels better. She had a couple bowel movements after a suppository. She still has a little nausea but not like it was yesterday. She said yesterday, when she was in the bathroom, she felt weak and lightheaded. The monitor did not note any pauses. OBJECTIVE: Pulse is 70, respirations 20, blood pressure 135/72. Pupils are equal and round. Lungs are clear in all lung lombardi. Cardiovascular Examination: Regular rhythm and rate without murmur or S3. She is alert and oriented x3. ASSESSMENT/PLAN: 1. Dizziness and syncope, suspect sick sinus syndrome. Have documented some significant pauses. We had stopped her beta susie, metoprolol. She was on a very small dose of metoprolol-XL 50 mg and some clonidine. She seems to be feeling a little better. She has a loop monitor in place and possibly could go home tomorrow. 2. Hypertension. 3. History of deep venous thrombosis and pulmonary embolism in the past. 4. History of chronic lymphocytic leukemia. Her counts are stable. 5. She is presently on amlodipine 5 mg twice a day, hydralazine 10 mg I think 3 times a day, isosorbide dinitrate 10 mg by mouth three times a day. cc: Brendon Chacko MD
[2019-08-17] MEDS: ASPIRIN PO SCH (08:28)
[2019-08-17] MEDS: MIRALAX PO SCH (08:28)
[2019-08-17] MEDS: ISORDIL PO SCH ×3 (08:28→20:14)
[2019-08-17] MEDS: APRESOLINE PO SCH ×3 (08:28→20:14)
[2019-08-17] MEDS: NORVASC PO SCH ×2 (08:28→20:14)
[2019-08-17] MEDS: LOPRESSOR PO SCH ×2 (11:24→20:13)
--- NOTE | 2019-08-17 11:43 | CARDIOLOGY PROGRESS NOTE ---
DATE: 08/17/2019 CHIEF COMPLAINT: Dizziness, palpitations. SUBJECTIVE: Ms. Solis is not feeling well. She has some orthostatic intolerance. When she gets up and moves, she gets to experience palpitations, and she does not feel well during that. I suspect that might be a side effect of isosorbide dinitrate and hydralazine. I have already cut down the doses of it. Her blood pressure seems to be holding well, and her EKG has not shown any more sinus pauses. OBJECTIVE: Blood pressure is 135/72, temperature 98.3, pulse 82, respirations 18. Awake, alert, no distress. HEENT is unremarkable. Chest clear to auscultation and percussion. Heart sounds regular and rhythmic. No gallop or murmur. Abdomen is nontender. Extremities showed no edema. Neurologic: Follows commands. Moves all 4 extremities. DIAGNOSTIC DATA: Sodium is 140, potassium 4.6, BUN is 26, creatinine 1.6. IMPRESSION: 1. The patient has evidence of sinus arrest, long pause of 8 seconds. She was on a small dose of beta susie at that time. 2. The patient is with history of hypertension. 3. History of deep venous thrombosis and pulmonary embolism. 4. Noncardiac chest pain. 5. Chronic lymphocytic leukemia. 6. Chronic kidney disease. RECOMMENDATIONS: At this time, what I am going to do is put her on a very tiny amount of metoprolol 12.5 twice a day and monitor her in the hospital. I may eliminate completely isosorbide dinitrate and hydralazine if she continues to feel tachycardia or palpitations. If, with low dose of beta susie, this patient develops significant sinus arrest, then, I believe this patient needs to have a pacemaker, and we will transfer her to higher level of care facility for that. Further advice will be forthcoming. cc: MD Brendon Hull MD [facility]ENTERMaria Eugenia
[2019-08-17] MEDS: ATIVAN PO SCH (20:13)
[2019-08-18] MEDS: ZOFRAN IV PRN (03:33)
[2019-08-18] MEDS: PRILOSEC PO SCH (06:06)
--- NOTE | 2019-08-18 07:32 | EKG Report ---
Test Performed on : 08/18/2019 08:09:25 AM Test Reason : bradyarrhythmia Blood Pressure : / mmHG Vent. Rate : 071 BPM Atrial Rate : 071 BPM P-R Int : 118 ms QRS Dur : 086 ms QT Int : 476 ms P-R-T Axes : 035 041 061 degrees QTc Int : 517 ms Normal sinus rhythm. Possible Left atrial enlargement Left ventricular hypertrophy Nonspecific T wave abnormality Prolonged QT Abnormal ECG When compared with ECG of 17-AUG-2019 07:40, (Unconfirmed) QT has lengthened Unconfirmed Result
--- NOTE | 2019-08-18 07:43 | EKG Report ---
Test Performed on : 08/17/2019 07:40:43 AM Test Reason : bradyarrhythmia Blood Pressure : / mmHG Vent. Rate : 086 BPM Atrial Rate : 086 BPM P-R Int : 118 ms QRS Dur : 086 ms QT Int : 366 ms P-R-T Axes : 031 033 058 degrees QTc Int : 437 ms Normal sinus rhythm. Minimal voltage criteria for LVH, may be normal variant Nonspecific T wave abnormality Abnormal ECG When compared with ECG of 14-AUG-2019 13:46, Nonspecific T wave abnormality now evident in Lateral leads Unconfirmed Result
[2019-08-18] MEDS: LOPRESSOR PO SCH ×2 (08:30→20:51)
[2019-08-18] MEDS: ISORDIL PO SCH ×3 (08:30→20:49)
[2019-08-18] MEDS: APRESOLINE PO SCH ×3 (08:30→20:52)
[2019-08-18] MEDS: NORVASC PO SCH ×2 (08:31→20:52)
[2019-08-18] MEDS: MIRALAX PO SCH (08:31)
[2019-08-18] MEDS: ASPIRIN PO SCH (08:31)
--- NOTE | 2019-08-18 09:43 | PROGRESS NOTE ---
DATE: 08/18/2019 SUBJECTIVE: Ms. Solis is feeling much better today. The plan is to stop the Apresoline and hydralazine and isosorbide dinitrate. She is on low-dose metoprolol. I am going to check and see what her loop monitor has shown so far. OBJECTIVE: Vital Signs: Temp 97.4 degrees, pulse 72, respirations 15, blood pressure 112/69. HEENT: Pupils are equal and round. Lungs: Clear in all lung lombardi. Cardiovascular: Regular rhythm and rate without murmur or S3. Abdomen: Soft. Skin: Warm and dry. ASSESSMENT AND PLAN: 1. The patient had evidence of sinus arrest, long pauses up to 8 seconds. She was on a small dose beta susie, and we reduced that. 2. History of hypertension. 3. History of deep venous thrombosis and pulmonary embolism, for which she is on Coumadin. 4. Noncardiac chest pain. 5. Chronic lymphocytic leukemia. Counts are stable. 6. Chronic kidney disease. REVIEW OF CURRENT ORDERS: She is getting Ativan 1 mg at bedtime, Norvasc 5 mg b.i.d., hydralazine has been reduced down to 10 mg 3 times a day, isosorbide dinitrate was 10 mg t.i.d., and metoprolol is at 12.5 mg b.i.d. Will have her walk around and ambulate. Will get Physical Therapy to help her with that, and possibly could go home tomorrow. cc: Brendon Chacko MD
--- NOTE | 2019-08-18 11:06 | CARDIOLOGY PROGRESS NOTE ---
DATE: 08/18/2019 CHIEF COMPLAINT: Dizziness, palpitations, near syncope. SUBJECTIVE: Ms. Solis states this morning that she is feeling a little better. Yesterday we initiated a tiny dose of beta susie, metoprolol tartrate. This morning, her EKG shows sinus rhythm with LVH, rate is 71 beats per minute. We also went ahead and cut down on the doses of isosorbide dinitrate and hydralazine. OBJECTIVE: Her blood pressure this morning is 112/66, temperature 98.4, pulse 66, respirations 16. Overall, she seems to be in better spirits. HEENT is unremarkable. Chest: Clear to auscultation and percussion. Heart sounds are regular and rhythmic. I do not hear a gallop or murmur. Abdomen is nontender. Extremities showed no edema. Neurologic: Follows commands. Moves all 4 extremities. IMPRESSION: 1. The patient presented with palpitations, dizziness and near syncope, and there was a documented 8-second pause. At that time, the argument was that she may have been on too much beta susie, and therefore, pacemaker was not warranted. We have implanted a loop recorder monitor on her for closer monitoring. 2. Hypertension. 3. Chronic lymphocytic leukemia. 4. Chronic kidney disease. 5. Noncardiac chest pain. RECOMMENDATIONS: At this time, I would suggest to watch her one more day in the hospital on the tiny dose of beta susie, and if everything is stable tomorrow, she can go home on that specific dose along with the low doses of isosorbide dinitrate and hydralazine. We will arrange for office followup. Thank you again for the opportunity to participate in her evaluation. cc: MD Brendon Hull MD
[2019-08-18] MEDS: ATIVAN PO SCH (21:11)
[2019-08-19] MEDS: TYLENOL PO PRN (00:32)
[2019-08-19] MEDS: PRILOSEC PO SCH (06:30)
[2019-08-19] MEDS: MIRALAX PO SCH (08:21)
[2019-08-19] MEDS: ASPIRIN PO SCH (08:21)
[2019-08-19] MEDS: LOPRESSOR PO SCH (08:21)
[2019-08-19] MEDS: APRESOLINE PO SCH (08:22)
[2019-08-19] MEDS: ISORDIL PO SCH (08:22)
[2019-08-19] MEDS: NORVASC PO SCH (08:22)
--- NOTE | 2019-08-19 08:52 | CARDIOLOGY PROGRESS NOTE ---
DATE: 08/19/2019 CHIEF COMPLAINT: Near syncope. SUBJECTIVE: Mrs. Solis feels better. She has not had anymore weak spells or blacking out spells. We have cutdown her medications. Her telemetry has been reviewed. There is no indication of any significant bradyarrhythmic spells. Her lowest rate is 70 beats per minute. OBJECTIVE: Vital signs: Today, her vital signs are as follows, pulse 70 per minute, respirations 18 per minute, blood pressure 138/68 mmHg, temperature is 97.9. General: She is awake, alert, cooperative, in good spirits. HEENT: Normal. Chest: Clear to auscultation and percussion. Heart: Sounds are regular and rhythmic. No gallop or murmur. Abdomen: Nontender. Extremities: Showed good pulses, no edema. Neurologic exam: Follows commands, moves all 4 extremities. IMPRESSION: 1. Patient who had near syncopal episodes with bradyarrhythmia pauses. 2. Hypertension. 3. Chronic kidney disease. 4. Chronic lymphocytic leukemia. 5. Complaints of chest pain that is deemed to be noncardiac. RECOMMENDATIONS: At this time, the patient will be discharged home on a regimen of amlodipine 5 mg twice a day, hydralazine 10 mg 3 times a day, isosorbide dinitrate 10 mg 3 times a day, and metoprolol 12.5 mg twice a day. She already has the implanted loop recorder monitor. We will schedule a visit with me in 3 weeks from now for followup. If she were to have any syncopal spell at home, she is to report immediately to my office for interrogation of the loop recorder. Otherwise, the patient at this time appears to be hemodynamically stable and I will be in touch with Dr. Chacko if there is any change in the next few weeks. If we indeed confirm the presence of significant sinus arrest, she will be referred for a permanent pacemaker implantation. cc: MD Brendon Hull MD
[2019-08-19 11:35] VITALS: BP 122/58
--- NOTE | 2019-08-19 13:55 | DISCHARGE SUMMARY ---
ADMISSION DATE: 08/14/2019 DISCHARGE DATE: 08/19/2019 This is an 78-year-old patient, last here on 06/04/2019. Says for the last week, she woke up and feels pressure in her chest and feels funny when she tries to lay down in the bed and has to lay down for a couple hours. The pain at times seems sharp and pushing down her chest and feels palpitations. She had called Dr. Hollingsworth, he wanted her to come in and get some blood work. On the way in for the lab, she developed some palpitations and felt weak and felt like she was going to pass out and developed some chest pain. She went to the emergency room. PAST MEDICAL HISTORY: 1. History of chronic lymphocytic leukemia (CLL) followed by Dr. Hendricks. Her blood counts are stable and in remission at this time. 2. Hypertension. 3. Osteoarthritis. 4. History of deep venous thrombosis. 5. Osteopenia. 6. Reflux disease. 7. Atrial fibrillation, paroxysmal. 8. History of angioedema. 9. Scoliosis. 10. Last admission 06/04/2019. She had some neutropenia untreated. I thought it was probably medicine induced. She had febrile neutropenia. We treated it with meropenem and vancomycin. We stopped her hydrochlorothiazide and losartan at that time. We had started her on some Apresoline trying to help with her blood pressure. She was concerned about that. ADMISSION DIAGNOSIS: Chest pain in the morning and palpitations. Her enzymes were negative. However, we noticed on the monitor and she had up to 8-second pauses and so we decreased her metoprolol and adjusted her medications, put in a loop monitor, and she seemed to feel a little better. We had Physical Therapy walk her around, which she tolerated. We said that she could go home on 08/19/2019. She will take Norvasc 5 mg twice a day, aspirin 325 mg a day, Apresoline 10 mg 3 times a day, Isordil 10 mg t.i.d., Ativan 1 mg p.o. at bedtime, Lopressor 12.5 mg b.i.d., Prilosec 20 mg a day, MiraLAX 17 g daily. I will see her back in 2 weeks. Cardiology will see her back, I think, in a week. She has a loop monitor in place. Dr. Hollingsworth is her maritime officer. Note we suspect she has sick sinus syndrome and she may need a pacemaker, but try to maximize her medicine and decrease her beta blockers. cc: Brendon Chacko MD
== END 2019-08-19 14:43 | disposition home health service (06) | DRG 261 ==
LOC: EDIPHOLD 10:26 → ED 10:26 → 3N 19:49 → 2N 08-14 14:55
PROVIDERS: ADMIT Emergency Medicine; ATTEND Emergency Medicine

== ENCOUNTER 2019-12-18 07:14 | Inpatient (IN) ==
[2019-12-18] MEDS ORDERED: NS 1,000 ML IV ONE (07:26)
[2019-12-18] MEDS ORDERED: ZOFRAN IV ONE (07:29)
[2019-12-18] MEDS ORDERED: MORPHINE IV ONE (07:29)
[2019-12-18] MEDS ORDERED: MAXIPIME 1 GM in NS 50 ML IV ONE (07:30)
--- NOTE | 2019-12-18 07:35 | PROVIDER DOCUMENTATION ---
HPI-Fever - General Chief Complaint: Flu Symptoms Stated Complaint: FLU Time Seen by Provider: 12/18/19 07:21 Source: patient, family (son), EMS Allergies/Adverse Reactions: Patient Allergies Allergy/AdvReac Type Severity Reaction Status Date / Time BIANKA Inhibitors Allergy Severe bradycardia Verified 12/18/19 07:49 naproxen Allergy Severe bleeding Verified 12/18/19 07:49 Penicillins Allergy Severe SWELLING Verified 12/18/19 07:49 Sulfa (Sulfonamide Allergy Severe SWELLING Verified 12/18/19 07:49 Antibiotics) [Sulfa(Sulfonamide Antibiotics)] propoxyphene napsylate * Allergy Intermediate SWELLING Verified 12/18/19 07:49 [From [facility]] Home Medications: Home Medication List Medication Instructions Recorded Confirmed Last Taken Type Lorazepam 1 mg PO QHS 03/23/17 12/17/19 12/16/19 History Warfarin Sodium 4 mg PO QHS 03/23/17 12/17/19 12/16/19 History Acetaminophen [Tylenol] 650 mg PO Q4H PRN PRN tab 06/11/19 12/17/19 08/09/19 Rx Hydralazine [Apresoline] 10 mg PO 0800,1400,2100 30 Days 08/19/19 12/17/19 0 12/16/19 Rx #90 tab Isosorbide Dinitrate [Isordil] 10 mg PO TID@0800,1400,2100 30 08/19/19 12/17/19 Unknown Rx Days #90 tab Metoprolol [Lopressor] 12.5 mg PO BID 30 Days #60 tab 08/19/19 12/17/19 12/16/19 Rx Polyethylene Glycol 3350 [Miralax] 17 gm PO DAILY 30 Days #1 powder, 08/19/19 12/17/19 Unknown Rx packet Guaifenesin/Dextromethorphan 1 ea PO Q12HR #20 tab.er.12h 10/02/19 12/17/19 12/16/19 Rx [Mucinex Dm ER 1,200-60 mg Tab] Pantoprazole Sodium 1 tab PO BID 10/05/19 12/17/19 12/16/19 History Oseltamivir [Tamiflu] 75 mg PO BID 5 Days #10 cap 12/17/19 Unknown Rx - History of Present Illness-Fever Nature of Presenting Problem: Patient has been sick for about 1 week, symptoms began with n/v/d, seen by Dr. Chacko 3 days ago and diagnosed with "virus," then developed cough/fever/st/gross/malaise, Seen this ER yesterday, diagnosed with influenza A and started on Tamiflu. Patient has gotten progressively worse and weaker and had a syncopal episode this morning while at her house. Son states she has just gotten progressively weaker at home and can't take of herself. Fever Severity/Quality: reports: greater than 102 F Onset/Duration: reports: 1 week ago Timing: reports: still present, constant, changing over time, getting worse Severity: reports: severe Context: reports: confusion, other (CLL, not currently on chemo) Recent Illness?: reports: other (Influenza A) Fever Therapy PROFILE GRINDER: Initiated Tylenol Cognitive Baseline: alert, oriented x3 Modifying Factors: improves with: analgesics, lying down, rest. worse with: movement Associated Symptoms: reports: cough, diaphoresis, diarrhea, dizziness, fever/chills, loss of appetite, malaise, muscle aches, sinus congestion/drainage , nausea, syncope, vomiting, weakness, trouble walking Similar Symptoms Previously?: Yes Recently seen or treated by another doctor?: Yes (ER yesterday, Dr. Chacko's office 3 days ago) - Glascow Coma Score Best Eye Response ([place]riyank): (4) open spontaneously Best Verbal Response ([place]): (5) oriented Best Motor Response ([place]riyank): (6) obeys commands Priyank Total: 15 Review of Systems - Adult - REVIEW OF SYSTEMS - ADULT Constitutional: reports: see HPI, chills, fever, night sweats Eyes: reports: no symptoms reported Ears, Nose, Mouth & Throat: reports: no symptoms reported Cardiovascular: reports: no symptoms reported Respiratory: reports: no symptoms reported Gastrointestinal: reports: no symptoms reported Genitourinary: reports: no symptoms reported Musculoskeletal: reports: no symptoms reported Integumentary: reports: no symptoms reported Neurological: reports: no symptoms reported Psychiatric: reports: no symptoms reported Endocrine: reports: no symptoms reported Hematologic/Lymphatic: reports: no symptoms reported Allergic/Immunologic: reports: no symptoms reported All Other Systems: Reviewed and Negative Past History - Adult - PAST MEDICAL HISTORY-ADULT Review of Records: reports: Old Records Reviewed, Nursing Assessment Review, Medications Reviewed, Social history reviewed & non-contributory. Major Childhood Illnesses: reports: history unknown Cardiovascular: reports: A-Fib, HTN, other (DVT) Respiratory: reports: denies history Gastrointestinal: reports: GERD Obstetrical/Gynecological: reports: denies history Genitourinary: reports: denies history Musculoskeletal: reports: denies history Neurological: reports: denies history Psychiatric: reports: depression Endocrine/Immune: reports: Leukemia (in relapse) Other Conditions: reports: cataract/glaucoma, other - PRIOR SURGERIES/PROCEDURES Surgical/Procedure History: reports: appendectomy, cholecystectomy, hysterectomy , indwelling device (port a cath left anterior chest wall), other (cataract removal; IVC filter) - PRIOR HOSPITALIZATIONS Prior Hospitalizations: reports: none - IMMUNIZATION STATUS Childhood Immunizations: See Nurse Assessment Flu Vaccine: See Nurse Assessment - FAMILY HISTORY Family History: reviewed, not pertinent - SOCIAL HISTORY Smoking: non-smoker Substance Use: none/never Alcohol Use Frequency: never Living Situation: family Physical Exam-General - PHYSICAL EXAM-ADULT Initial Vital Signs Reviewed: Yes (VSSAF) - CONSTITUTIONAL General Appearance: alert, no apparent distress, other (ill appearing, weak) - EYES Eyes: PERRL/EOMI, pink conjunctivae - HEAD, EARS, NOSE, MOUTH & THROAT HENMT: normocephalic/atraumatic, TMs normal, pharyngeal erythema. negative: m oist mucous membranes (dry mucous membranes) - NECK Neck: full range of motion, supple, normal inspection - RESPIRATORY Respiratory: chest non-tender, lungs clear, normal breath sounds, no pleuratic chest pain, no respiratory distress, no accessory muscle use - CARDIOVASCULAR Cardiovascular: normal peripheral pulses, regular rate, rhythm, no edema, no gallop, no JVD, systolic murmur - GASTROINTESTINAL (ABDOMEN) Abdominal Exam: normal bowel sounds, non tender, soft, no organomegaly, no pulsatile mass - LYMPHATIC Lymphatic: no adenopathy - MUSCULOSKELETAL Back Exam: normal inspection, no vertebral tenderness. 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 as tested, grossly normal, no motor/sensory deficits - PSYCHIATRIC Psych/Mental Status: normal mood/affect, normal thought content, normal thought process, oriented x 3 Progress - PLAN OF CARE/RESULTS Progress/Plan/Lab Results: Vital Signs - 8 hr 12/18/19 07:27 Temperature 98.6 F Pulse Rate 63 Respiratory Rate 22 Blood Pressure 117/57 O2 Sat by Pulse Oximetry 95 Laboratory Results - last 24 hr 12/18/19 12/18/19 12/18/19 07:45 08:08 08:08 WBC RBC Hgb Hct MCV MCH MCHC RDW Std Deviation Plt Count MPV Immature Gran % (Auto) Neut % (Auto) Lymph % (Auto) Ness % (Auto) Eos % (Auto) Baso % (Auto) Immature Gran # (Auto) Neut # (Auto) Lymph # (Auto) Ness # (Auto) Eos # (Auto) Baso # (Auto) PT INR Specimen Type ARTERIAL Sample Site R BRACHIAL pH 7.36 pCO2 35 pO2 55 L HCO3 20.9 Base Excess -5.0 L Oxyhemoglobin 90.1 L ABG O2 Sat (Calculated) 13.9 L ABG O2 Saturation 93.1 L ABG Carboxyhemoglobin 2.00 ABG Methemoglobin 1.1 Brendon Test NO A-a O2 Difference 51.0 Total Hemoglobin 11.0 L Lactate 0.50 Liter Flow 0.0 Blood Gas Modality ROOM AIR FiO2 % 21.0 Sodium 139 Potassium 3.5 Chloride 104 Carbon Dioxide 21 L Anion Gap 14 BUN 23 H Creatinine 1.5 H BUN/Creatinine Ratio 15 Glucose 98 Calculated Osmolality 281 Calcium 8.6 L Total Bilirubin 0.20 AST 15 ALT 9 L Alkaline Phosphatase 57 Troponin T High Sens Oro-M-Nbfwsldkubu Pept Total Protein 5.6 L Albumin 3.5 Globulin 2.1 Albumin/Globulin Ratio 1.7 Plasma Lactate 0.6 Urine Source Urine Color Urine Turbidity Urine pH Ur Specific [place] Urine Protein Ur Glucose (Stick) Ur Ketones (Stick) Urine Blood Urine Nitrite Urine Bilirubin Urobilinogen Dipstick Urine Leukocytes Urine WBC (Auto) Urine RBC (Auto) U Epithel Cells (Auto) Urine Bacteria (Auto) 12/18/19 12/18/19 12/18/19 08:08 08:08 08:08 WBC 3.06 L RBC 4.40 Hgb 10.5 L Hct 33.5 L MCV 76.1 L MCH 23.9 L MCHC 31.3 L RDW Std Deviation 17.0 H Plt Count 145 MPV 10.8 H Immature Gran % (Auto) 0.0 Neut % (Auto) 58.5 Lymph % (Auto) 24.2 Ness % (Auto) 14.4 H Eos % (Auto) 2.6 Baso % (Auto) 0.3 Immature Gran # (Auto) 0.00 Neut # (Auto) 1.79 Lymph # (Auto) 0.74 L Ness # (Auto) 0.44 Eos # (Auto) 0.08 Baso # (Auto) 0.01 PT INR Specimen Type Sample Site pH pCO2 pO2 HCO3 Base Excess Oxyhemoglobin ABG O2 Sat (Calculated) ABG O2 Saturation ABG Carboxyhemoglobin ABG Methemoglobin Brendon Test A-a O2 Difference Total Hemoglobin Lactate Liter Flow Blood Gas Modality FiO2 % Sodium Potassium Chloride Carbon Dioxide Anion Gap BUN Creatinine BUN/Creatinine Ratio Glucose Calculated Osmolality Calcium Total Bilirubin AST ALT Alkaline Phosphatase Troponin T High Sens 14 Phw-A-Aktswagyaqq Pept 154 Total Protein Albumin Globulin Albumin/Globulin Ratio Plasma Lactate Urine Source Urine Color Urine Turbidity Urine pH Ur Specific [place] Urine Protein Ur Glucose (Stick) Ur Ketones (Stick) Urine Blood Urine Nitrite Urine Bilirubin Urobilinogen Dipstick Urine Leukocytes Urine WBC (Auto) Urine RBC (Auto) U Epithel Cells (Auto) Urine Bacteria (Auto) 12/18/19 12/18/19 08:08 10:11 WBC RBC Hgb Hct MCV MCH MCHC RDW Std Deviation Plt Count MPV Immature Gran % (Auto) Neut % (Auto) Lymph % (Auto) Ness % (Auto) Eos % (Auto) Baso % (Auto) Immature Gran # (Auto) Neut # (Auto) Lymph # (Auto) Ness # (Auto) Eos # (Auto) Baso # (Auto) PT 18.3 H INR 1.49 Specimen Type Sample Site pH pCO2 pO2 HCO3 Base Excess Oxyhemoglobin ABG O2 Sat (Calculated) ABG O2 Saturation ABG Carboxyhemoglobin ABG Methemoglobin Brendon Test A-a O2 Difference Total Hemoglobin Lactate Liter Flow Blood Gas Modality FiO2 % Sodium Potassium Chloride Carbon Dioxide Anion Gap BUN Creatinine BUN/Creatinine Ratio Glucose Calculated Osmolality Calcium Total Bilirubin AST ALT Alkaline Phosphatase Troponin T High Sens Tfl-Z-Iovflqnbztj Pept Total Protein Albumin Globulin Albumin/Globulin Ratio Plasma Lactate Urine Source CLEAN CATCH Urine Color YELLOW Urine Turbidity CLEAR Urine pH 6.0 Ur Specific [place] 1.014 Urine Protein 50 A Ur Glucose (Stick) NEGATIVE Ur Ketones (Stick) TRACE A Urine Blood NEGATIVE Urine Nitrite NEGATIVE Urine Bilirubin NEGATIVE Urobilinogen Dipstick NORMAL Urine Leukocytes NEGATIVE Urine WBC (Auto) <10 Urine RBC (Auto) <10 U Epithel Cells (Auto) <10 Urine Bacteria (Auto) NEGATIVE Orders Category Date Time Status May use PICC Line/Port a Cath ORDERED Care 12/18/19 07:35 Active Nursing- Obtain EKG once Care 12/18/19 07:28 Active Saline Loc NOW Care 12/18/19 07:27 Active CHEST-PORTABLE [RAD] Stat Exams 12/18/19 07:27 Completed ABG [RESP] Routine Lab 12/18/19 07:45 Completed BLOOD CULTURE [BLDCUL] Stat Lab 12/18/19 08:08 Results CBC WITH DIFF [HEME] Stat Lab 12/18/19 08:08 Completed COMPREHENSIVE METABOLIC PANEL [CHEM] Stat Lab 12/18/19 08:08 Completed LACTATE, PLASMA [CHEM] Lab 12/18/19 10:45 Uncollected LACTATE, PLASMA [CHEM] Lab 12/18/19 13:45 Uncollected LACTATE, PLASMA [CHEM] Q3H Lab 12/18/19 08:08 Completed PRO B-NATRIURETIC PEPTIDE Stat Lab 12/18/19 08:08 Completed PROTIME WITH INR [COAG] Stat Lab 12/18/19 08:08 Results PTT [COAG] Stat Lab 12/18/19 08:08 Results SPUTUM CULTURE WITH GRAM STAIN [RM] Routine Lab 12/18/19 10:12 Received TROPONIN T HIGH SENSITIVITY Stat Lab 12/18/19 08:08 Completed URINALYSIS W/POSS RFLX CULT [URINALYSIS] Stat Lab 12/18/19 10:11 Completed 0.9% Sodium Chloride Inj [Ns] 1,000 ml Med 12/18/19 07:26 Discontinued IV 999 mls/hr CefEPIME [Maxipime] 1 gm Med 12/18/19 07:30 Discontinued 0.9% Sodium Chloride Inj [Ns] 50 ml IV NOW Morphine Med 12/18/19 07:29 Discontinued 2 mg IV NOW ONE Ondansetron [Zofran] Med 12/18/19 07:29 Discontinued 4 mg IV NOW ONE Pulse Oximetry Stat Oth 12/18/19 07:27 Completed EKG [EKG] Stat Ther 12/18/19 07:28 Draft Result Diagrams: 12/18/19 08:08 12/18/19 08:08 - REASSESSMENT Reassessment #1 Time Reassessed: 11:05 Status: improving (minimally better after IVF bolus) Reassessment Comment: Given Vit K for coagulopathy - EKG 1 Time of EKG reading by physician:: 07:25 EKG Read and Signed by:: David Manuel EKG Interpretation (*Must complete 3 of following elements*): Abnormal Rate: 61 Rhythm: NSR Maxwell: normal QRS: other (early transition, high voltage) TN Interval: normal ST Wave: non-specific ST changes - XRAY 1 XRAY Study: Chest Impression: Abnormal, See EMR Report ( EXAM: CHEST-PORTABLE 12/18/2019 HISTORY: cough TECHNIQUE: AP portable at 0734 COMMENT: The inspiration is less optimal than on 12/17/2019. There is still some platelike opacity in the lung bases. IMPRESSION: Bibasilar atelectasis. Electronically signed by Nitesh Lopez 12/18/2019 7:44 AM [id number] Interpreting Physician: Nitesh Lopez MD Dictated Date/Time: 12/18/1946 cc: David Manuel MD; Brendon Chacko MD) - CONSULTS/PCP/HOSPITALIST Notification #1 *Consult/PCP/Hospitalist*: [place] Time Discussed: 11:07 Consult Disposition: Will see in ED, Admit Departure - Departure Date of Disposition Decision: 12/18/19 Time of Disposition Decision: 11:11 DIAGNOSIS: Syncope, near, Influenza A, Warfarin-induced coagulopathy, Generalized muscle weakness Disposition: ADMITTED INPATIENT 09 Certified Medical Emergency: Emergent Condition: Fair Referrals and Follow-Ups: Brendon Chacko MD [Primary Care Provider] - - Critical Care Note This patient required my direct & personal management of CC.: Yes Total Time (mins): 35 Critical Care Statement: This patient required my direct personal management to treat or rule out processes, the absence of which, could potentiallly result in sudden, clinically significant life or limb threatening deterioration. Attestation - Physician/ CHRIS Attestation Patient care was provided by Advanced Practice Provider:: No The physician spent face to face time with patient:: Yes Advanced Practice Provider documentation review:: Supervising physician onsite and consulted in the evaluation and care of this patient. The physician did have a face to face encounter with the patient.
--- NOTE | 2019-12-18 07:47 | Diag Imaging Result Doc PS360 ---
EXAM: CHEST-PORTABLE 12/18/2019 HISTORY: cough TECHNIQUE: AP portable at 0734 COMMENT: The inspiration is less optimal than on 12/17/2019. There is still some platelike opacity in the lung bases. IMPRESSION: Bibasilar atelectasis. Electronically signed by Nitesh Lopez 12/18/2019 7:44 AM
[2019-12-18 07:54] LABS: ALLEN TEST NO; BLOOD TYPE ARTERIAL; HCO3-(ACT) 20.9 mmoll (20.0-26.0); METHB 1.1 % (0.0-1.5); MODALITY ROOM AIR; O2(CT) 13.9 mL/dL (15.0-23.0); O2HB 90.1 % (95.0-99.0); PCO2(98.6) 35 mmHg (35-45); PO2(98.6) 55 mmHg (60-100); SAMPLE BLOOD; SAO2 93.1 % (95.0-100.0); pH(98.6) 7.36 (7.35-7.45)
[2019-12-18 08:21] LABS: BASO# 0.01 X1000 (0.0-0.2); BASO% 0.3 % (0.0-0.8); EOS# 0.08 X1000 (0.0-0.7); EOS% 2.6 % (0.0-10.0); HEMATOCRIT 33.5 % (37.0-47.0); HEMOGLOBIN 10.5 g/dL (12.0-16.0); LYMPH# 0.74 X1000 (1.2-3.4); LYMPH% 24.2 % (20.5-51.1); MCH 23.9 PG (27-31); MCHC 31.3 g/dL (33-37); MCV 76.1 FL (81-99); MONO# 0.44 X1000 (0.11-0.59); MONO% 14.4 % (1.7-9.3); MPV 10.8 FL (7.4-10.4); NEUT# 1.79 X1000 (1.4-6.5); NEUT% 58.5 % (42.2-75.2); PLT 145 X1000 (130-400); WBC 3.06 X1000 (4.8-10.8)
--- NOTE | 2019-12-18 08:24 | EKG Report ---
Test Performed on : 12/18/2019 07:24:41 AM Test Reason : syncope Blood Pressure : / mmHG Vent. Rate : 061 BPM Atrial Rate : 061 BPM P-R Int : 128 ms QRS Dur : 086 ms QT Int : 430 ms P-R-T Axes : 026 021 036 degrees QTc Int : 432 ms Normal sinus rhythm. Nonspecific T wave abnormality Abnormal ECG When compared with ECG of 02-DEC-2019 12:28, (Unconfirmed) No significant change was found Unconfirmed Result
[2019-12-18 08:53] LABS: INR 1.49; PROTIME 18.3 Seconds (11.0-16.0)
[2019-12-18 09:25] LABS: AGAP 14; ALB/GLOB RATIO 1.7; ALBUMIN 3.5 g/dL (3.5-5.0); ALKALINE PHOSPHATASE 57 U/L (32-104); BUN 23 mg/dL (8-22); CALCIUM 8.6 mg/dL (8.8-10.2); CHLORIDE 104 mmol/L (98-107); COSMO 281; CREATININE 1.5 mg/dL (0.5-0.9); GLUCOSE 98 mg/dL (70-104); GOT 15 U/L (10-30); GPT 9 U/L (10-36); POTASSIUM 3.5 mmol/L (3.5-5.1); SODIUM 139 mmol/L (136-145); TCO2 21 mmol/L (25-35); TOTAL PROTEIN 5.6 g/dL (6.3-8.3)
[2019-12-18 10:20] LABS: URINE SOURCE CLEAN CATCH
[2019-12-18 10:37] LABS: BILIRUBIN URINE NEGATIVE (NEGATIVE); BLOOD URINE NEGATIVE (NEGATIVE); COLOR YELLOW; GLUCOSE URINE NEGATIVE (NEGATIVE); KETONE URINE TRACE mg/dL (NEGATIVE); LEUKOCYTES URINE NEGATIVE (NEGATIVE); NITRITE URINE NEGATIVE (NEGATIVE); PROTEIN URINE 50 mg/dL (NEGATIVE); SP GRAVITY URINE 1.014; TURBIDITY URINE CLEAR (CLEAR); UROBILINOGEN URINE NORMAL (NORMAL)
[2019-12-18 10:39] LABS: UR EPITHELIAL CELLS <10 /HPF (<10); URINE BACTERIA NEGATIVE /HPF; URINE RBC <10 /HPF (<10); URINE WBC <10 /HPF (<10)
[2019-12-18 11:05] LABS: PTT > 215.0 Seconds (22.3-41.8)
[2019-12-18] MEDS ORDERED: VITAMIN K 10 MG in NS 50 ML IV ONE (11:06)
--- NOTE | 2019-12-18 11:59 | HISTORY AND PHYSICAL ---
HISTORY OF PRESENT ILLNESS: This is a long-standing patient of mine, an 79-year-old, started feeling bad about 4 or 5 days ago. I saw her in my office. It looked like it was a viral syndrome. Indeed she tested positive for influenza A. PAST MEDICAL HISTORY: 1. She has underlying chronic lymphocytic leukemia, in remission right now, followed by Dr. Hendricks. 2. Hypertension. 3. Osteoarthritis. 4. History of deep venous thrombosis. 5. Osteopenia. 6. Reflux disease. 7. Atrial fibrillation, paroxysmal. 8. History of angioedema. 9. Scoliosis of the thoracic spine with frequent pain in her upper shoulders and thoracic spine. 10. General anxiety. ALLERGIES: Penicillin, Darvocet, sulfa drugs, and she does not tolerate BIANKA inhibitors because of angioedema, and I think she has trouble with steroids as well. SOCIAL HISTORY: Negative for alcohol or tobacco. Lives alone. No illicit drugs. FAMILY HISTORY: Mother at age 94 secondary to complications from breast cancer. Father at age 85 secondary to acute myocardial infarction. REVIEW OF SYSTEMS: General: She has had nausea for 4 days and poor appetite, has not been eating or drinking much. She feels lightheaded, in fact she had a little short syncopal episode this morning. She has been to the emergency room a couple times, last couple days, just general malaise, weakness, runny nose, scratchy throat. Respiratory: No increased work of breathing or dyspnea. Cardiovascular: No chest pain or tachy palpitation. Gastrointestinal: She has had some nausea but her bowel movements are regular. Endocrinologic/hemologic: No significant history. Musculoskeletal/Neurologic: Just general weakness. PHYSICAL EXAMINATION: VITAL SIGNS: In the emergency room, temperature 98.6 degrees, pulse 60, respirations 22, blood pressure 117/57. Weight 132 pounds. HEENT: Pupils are equal and round. LUNGS: Clear in all lung lombardi. CARDIOVASCULAR: Regular rhythm and rate without murmur or S3. ABDOMEN: Soft, nondistended, nontender. SKIN: Warm and dry. NECK: Supple. No adenopathy, cervical, supraclavicular, axillary, or femoral adenopathy appreciated. LABORATORY DATA: White count 3060, hematocrit is 33, hemoglobin 10.5, platelet count 145,000. Sodium 139, potassium 3.5, chloride 104, BUN 23, creatinine 1.5. Her liver functions, AST and ALT 15 and 9 so normal. Troponin was 14. ProBNP was 154. Albumin 3.5. Protime was 18.3 with an INR of 1.49. PTT was greater than 215. Urinalysis unremarkable. Blood gas, pH is 7.36, pCO2 35, PO2 is 55, O2 saturation is 93% on room air. IMAGING: Chest x-ray. Bibasilar atelectasis. No sign of pneumonia or infiltrate. ASSESSMENT AND PLAN: 1. Viral upper respiratory infection, influenza, and I think she had a throat culture on 12/17/2019 positive for influenza A, negative for B. I am going to give her some fluids. She looks like she is a little bit dehydrated. 2. She has chronic lymphocytic leukemia and her blood counts look pretty stable. 3. She is on Coumadin for a history of deep venous thrombosis in the past and I think we have had episodes of paroxysmal atrial fibrillation as well. REVIEW OF HER HOME MEDICINES: She is on guaifenesin. She is on hydralazine 10 mg 3 times a day, Isordil 10 mg t.i.d., lorazepam 1 mg at bedtime, Lopressor 12.5 mg b.i.d., and she is on Tamiflu 75 mg p.o. b.i.d., and Protonix I think a 40 mg tablet twice a day, MiraLAX 17 g p.o. daily, and warfarin 4 mg at bedtime. Her PT is optimal. Her INR is 1.49, PT is 18.3, but her PTT was elevated. We will give her some normal saline 85 mL an hour. We will give her some Zofran for her nausea, and I think we are planning to do a CT of her head just to make sure there is not any intracranial process. She has no focal neurologic deficits but with her PTT being high, we will check a CT scan. We will put her on a monitor and will put her on a liquid diet for the present time. She had a syncopal episode. I may hold her Apresoline for now, and I do not see evidence of a bacterial infection or evidence of sepsis at this point. cc: Brendon Chacko MD
--- NOTE | 2019-12-18 12:06 | Diag Imaging Result Doc PS360 ---
EXAM: CT HEAD W/O CONTRAST INDICATION: weakness, coagulopathy TECHNIQUE: This exam was performed using automated exposure control, adjustment of mA or kV according to patient size, and/or use of iterative reconstruction technique. COMPARISON: 06/15/2019 FINDINGS: There is no definite acute infarct given the limited sensitivity of CT versus MRI. There is no discrete intracranial mass, mass effect, or intracranial hemorrhage. There is a stable small right maxillary sinus mucus retention cyst. Surrounding soft tissues and bony structures are essentially unremarkable, otherwise. IMPRESSION: No evidence of acute intracranial pathology. Electronically signed by Rock Chavira 12/18/2019 12:03 PM
[2019-12-18] MEDS ORDERED: LEVAQUIN 500 MG/D5W 500 MG/100 ML IVPB IV SCH (12:30)
[2019-12-18] MEDS ORDERED: TYLENOL PO PRN (12:58)
[2019-12-18] MEDS: NS 1,000 ML IV SCH (16:30)
[2019-12-18] MEDS: TYLENOL PO PRN (16:35)
[2019-12-18] MEDS: TAMIFLU PO SCH (20:46)
[2019-12-18] MEDS: PROTONIX PO SCH (20:46)
[2019-12-18] MEDS: LOPRESSOR PO SCH (20:46)
[2019-12-18] MEDS: ATIVAN PO SCH (20:46)
[2019-12-19] MEDS: TYLENOL PO PRN ×2 (01:07→13:53)
[2019-12-19 07:30] LABS: INR 1.18; PROTIME 15.1 Seconds (11.0-16.0)
--- NOTE | 2019-12-19 07:38 | EKG Report ---
Test Performed on : 12/19/2019 06:30:36 AM Test Reason : chest pain Blood Pressure : / mmHG Vent. Rate : 050 BPM Atrial Rate : 050 BPM P-R Int : 128 ms QRS Dur : 094 ms QT Int : 466 ms P-R-T Axes : 039 038 049 degrees QTc Int : 424 ms Critical Test Result: Low HR Sinus bradycardia. Nonspecific ST and T wave abnormality Abnormal ECG When compared with ECG of 18-DEC-2019 07:24, (Unconfirmed) No significant change was found Confirmed by Artur Emery MD ([id number]) on 12/20/2019 10:49:14 AM
[2019-12-19 07:54] LABS: ALB/GLOB RATIO 1.6; ALBUMIN 3.1 g/dL (3.5-5.0); CALCIUM 8.1 mg/dL (8.8-10.2); CREATININE 1.4 mg/dL (0.5-0.9); POTASSIUM 3.7 mmol/L (3.5-5.1); TOTAL BILIRUBIN 0.21 mg/dL (0.20-1.00)
[2019-12-19 08:31] LABS: BASO# 0.02 X1000 (0.0-0.2); EOS# 0.08 X1000 (0.0-0.7); EOS% 3.9 % (0.0-10.0); HEMATOCRIT 32.6 % (37.0-47.0); LYMPH# 1.14 X1000 (1.2-3.4); LYMPH% 55.3 % (20.5-51.1); MCH 23.7 PG (27-31); MCHC 30.7 g/dL (33-37); MCV 77.3 FL (81-99); MONO# 0.22 X1000 (0.11-0.59); MONO% 10.7 % (1.7-9.3); MPV 11.6 FL (7.4-10.4); NEUT% 29.1 % (42.2-75.2); PLT 152 X1000 (130-400); RBC 4.22 XMIL (4.2-5.4); WBC 2.06 X1000 (4.8-10.8)
[2019-12-19] MEDS: PROTONIX PO SCH ×2 (08:36→20:40)
[2019-12-19] MEDS: LOPRESSOR PO SCH ×2 (08:36→20:38)
[2019-12-19] MEDS: TAMIFLU PO SCH ×2 (08:36→20:40)
[2019-12-19] MEDS: MIRALAX PO SCH (08:38)
--- NOTE | 2019-12-19 11:53 | PROGRESS NOTE ---
DATE: 12/19/2019 SUBJECTIVE: Ms. Solis says she is feeling better. She appears comfortable. She is breathing comfortably. Says she is still coughing, a little bit of chest wall discomfort. PHYSICAL EXAMINATION: Vital Signs: She remains afebrile, temperature 98.1 degrees, pulse 50, respirations 18. Last 3 blood pressures are 118/53, 114/47, 101/51. HEENT: Pupils are equal. No distended neck veins. I do not appreciate any cervical or supraclavicular adenopathy. Lungs: Clear anterolateral. Cardiovascular: Regular rhythm and rate without murmur or S3. Abdomen: Soft. Skin: Warm and dry. Extremities: No pedal edema. LABORATORY DATA: White count is 2060, hematocrit is 32, hemoglobin 10, platelet count 152,000, 10% lymphocytes. Sodium 143, potassium 3.7, chloride 112, BUN 17, creatinine 1.4, which is down from yesterday 1.5, calcium 8.1. Transaminase is unremarkable. Her PTT when she came in was 215, it is 45. I did hold her Coumadin. We gave her some vitamin K. INR is at 1.18. Urinalysis unremarkable. We did a head CT without contrast, no evidence of acute intracranial pathology. Her chest x-ray from 12/17/2019, some bibasilar atelectasis. ASSESSMENT AND PLAN: 1. Viral upper respiratory tract infection. Positive nasopharyngeal swab for influenza A. She clinically is better, going to advance her diet. 2. Chronic lymphocytic leukemia. Her counts are stable. 3. She did have an elevated PTT, which may have just been from her underlying chronic lymphocytic leukemia. I will continue to hold her heparin for now and will advance her diet. Continue fluids with normal saline, I think at 85 mL an hour. She is on MiraLAX 17 g a day, Protonix 20 mg p.o. b.i.d., and we are giving her Tamiflu 75 mg b.i.d. cc: Brendon Chacko MD
[2019-12-19] MEDS: NS 1,000 ML IV SCH (13:53)
[2019-12-19] MEDS: ATIVAN PO SCH (20:40)
[2019-12-20] MEDS: TYLENOL PO PRN ×2 (02:27→11:50)
[2019-12-20] MEDS: NS 1,000 ML IV SCH ×2 (02:27→15:01)
--- NOTE | 2019-12-20 08:42 | PROGRESS NOTE ---
DATE: 12/20/2019 SUBJECTIVE: Ms. Solis feels a little better. She is still pretty wore out. She has some chest discomfort but this is similar to what she has had before and I think it is more chest wall discomfort. She has significant scoliosis. OBJECTIVE: Vital signs: She remains afebrile, temperature 98.5 degrees, pulse 49, respirations 20, blood pressure 132/72. HEENT: Pupils are equal and round. Oral and nasal mucosa clear. Lungs: Clear in all lung lombardi. Cardiovascular: Regular rhythm and rate without murmur or S3. No pedal edema. Skin: No sign of rash. Neck: Supple. URINE OUTPUT: 1000 mL. ASSESSMENT AND PLAN: 1. Suspect viral respiratory tract infection. She was positive for influenza A. Clinically, she is doing better. Still coughing some, still some general malaise. 2. Chronic lymphocytic leukemia. Her counts are stable. 3. When she presented, she had an elevated PTT, but her ProTime was therapeutic, so I held her Coumadin and her PTT came down to 45. We gave her some vitamin K. PT is 1.18. I will probably continue to hold the Coumadin, maybe start that back again tomorrow. She takes Coumadin for a history of deep venous thrombosis and some paroxysmal atrial fibrillation. REVIEW OF HER ORDERS: She is on Lopressor 12.5 mg b.i.d., getting normal saline at 85 mL an hour, Tamiflu 75 mg b.i.d., Protonix 20 mg p.o. b.i.d., and MiraLAX 17 g p.o. daily, Ativan 1 mg at bedtime. See if we can sit her up in a chair some today and continue present therapy. cc: Brendon Chacko MD
[2019-12-20] MEDS: MIRALAX PO SCH (11:45)
[2019-12-20] MEDS: TAMIFLU PO SCH ×2 (11:50→21:26)
[2019-12-20] MEDS: PROTONIX PO SCH ×2 (11:50→21:26)
[2019-12-20] MEDS: LOPRESSOR PO SCH (11:53)
[2019-12-20] MEDS ORDERED: PRINIVIL PO ONE (20:30)
[2019-12-20] MEDS: ATIVAN PO SCH (21:26)
[2019-12-21] MEDS: MIRALAX PO SCH (09:33)
[2019-12-21] MEDS: TAMIFLU PO SCH ×2 (09:34→20:19)
[2019-12-21] MEDS: PROTONIX PO SCH ×2 (09:34→20:19)
[2019-12-21] MEDS ORDERED: NORVASC PO ONE (10:48)
[2019-12-21] MEDS: SYMBICORT 80/4.5 MICROGM INHALER INH SCH ×2 (10:58→19:37)
[2019-12-21] MEDS: DUONEB (A & A) INH SCH ×4 (10:58→22:36)
--- NOTE | 2019-12-21 13:23 | PROGRESS NOTE ---
DATE: 12/21/2019 SUBJECTIVE: Ms. Solis is feeling better. She still has a lot of congestion in her sinuses and her chest, a lot of drainage. I will start some DuoNebs and a steroid inhaler, and see if it will help a little bit. She remains afebrile. She has not eaten much and has not had much of an appetite but she is on a regular diet. OBJECTIVE: Temperature 98.5 degrees, pulse 54, respirations 14, blood pressure 159/64. Pupils are equal and round. Lungs are clear in all lung lombardi. Cardiovascular Examination: Regular rhythm and rate without murmur or S3. Abdomen is soft. Skin is warm and dry. Urine output is 3300 mL so good urine output. ASSESSMENT AND PLAN: 1. Viral upper respiratory tract infection in the face of someone with chronic lymphocytic leukemia. She has influenza A positive from nasopharyngeal swabs, still a lot of congestion. I will add some DuoNebs. She is using incentive spirometry. Overall, she is better. 2. Chronic lymphocytic leukemia. Her counts look stable. 3. Presented with an elevated PTT. I did hold her Coumadin but I will discharge her back on the Coumadin. She is on Coumadin for a history of deep venous thrombosis and she has had some history of paroxysmal atrial fibrillation I believe in the past as well. 4. Blood pressures, she has had some above 160 but most of them look like they are fairly well controlled so I will not change her blood pressure medicine at this time. cc: Brendon Chacko MD
[2019-12-21] MEDS ORDERED: BLISTEX MEDICATED BERRY LIP BALM TOP PRN (17:39)
[2019-12-21] MEDS: ATIVAN PO SCH (20:19)
[2019-12-22] MEDS: SYMBICORT 80/4.5 MICROGM INHALER INH SCH ×2 (07:43→19:53)
[2019-12-22] MEDS: DUONEB (A & A) INH SCH ×5 (07:43→22:58)
[2019-12-22] MEDS: LOPRESSOR PO SCH ×2 (08:08→20:09)
[2019-12-22] MEDS: NORVASC PO SCH (08:09)
[2019-12-22] MEDS: TAMIFLU PO SCH ×2 (08:09→20:09)
[2019-12-22] MEDS: MIRALAX PO SCH (08:09)
[2019-12-22] MEDS: PROTONIX PO SCH ×2 (08:09→20:09)
[2019-12-22] MEDS ORDERED: ZOFRAN IV PRN (09:51)
[2019-12-22] MEDS ORDERED: NORCO-10 PO PRN (09:51)
--- NOTE | 2019-12-22 10:11 | PROGRESS NOTE ---
DATE: 12/22/2019 SUBJECTIVE: She does feel better, but she has nausea today and still does not feel real good. She did eat a little bit yesterday. She would like to have her [place] back and something for nausea. She remains afebrile. OBJECTIVE: Vital Signs: Temperature 98.3 degrees, pulse 55, respirations 18, blood pressure 145/60. HEENT: Pupils are equal and round. Lungs: Clear in all lung lombardi. Cardiovascular: Regular rhythm and rate without murmur or S3. Abdomen: Soft. Skin: Warm and dry. Urine output is 1400 mL, so good urine output. ASSESSMENT AND PLAN: 1. Viral upper respiratory tract infection, positive for influenza A with underlying chronic lymphocytic leukemia. I think overall she is better. No sign of bacterial pneumonia. 2. Chronic lymphocytic leukemia. Her blood counts look stable. Seems to be in remission. 3. Presented with a high PTT and I did hold her Coumadin, but we will start her back when she goes home. This was for history of DVT in the past. 4. Blood sugars look like they are doing well and her CBC on the 6th, white count 2060, hematocrit 32, platelet count 152,000. Creatinine is 1.4, which I think is baseline and does represent some chronic kidney disease. It is down from 1.5 on 12/18/2019. I will check her electrolytes again tomorrow. cc: Brendon Chacko MD
[2019-12-22] MEDS: ZOFRAN IV PRN ×2 (15:53→20:10)
[2019-12-22] MEDS: ATIVAN PO SCH (20:10)
[2019-12-23] MEDS: SYMBICORT 80/4.5 MICROGM INHALER INH SCH ×2 (08:01→20:25)
[2019-12-23 08:02] LABS: CALCIUM 8.5 mg/dL (8.8-10.2); CREATININE 1.2 mg/dL (0.5-0.9); MAGNESIUM 1.7 mg/dL (1.5-2.7); POTASSIUM 3.3 mmol/L (3.5-5.1)
[2019-12-23] MEDS: DUONEB (A & A) INH SCH ×5 (08:02→22:54)
[2019-12-23] MEDS: MIRALAX PO SCH (08:22)
[2019-12-23] MEDS: PROTONIX PO SCH ×2 (08:23→23:35)
[2019-12-23] MEDS: TAMIFLU PO SCH ×2 (08:23→23:35)
[2019-12-23] MEDS: NORVASC PO SCH (08:23)
[2019-12-23] MEDS: LOPRESSOR PO SCH ×2 (08:23→23:35)
--- NOTE | 2019-12-23 17:29 | PROGRESS NOTE ---
DATE: 12/23/2019 SUBJECTIVE: Ms. Solis feels better today. She is still puny but her ingestion is better. She is breathing better. She remains afebrile. OBJECTIVE: Vital Signs: Temperature 98.4 degrees, pulse 59, respirations 19, blood pressure 142/58. HEENT: Pupils are equal and round. Lungs: Clear in all lung lombardi. Cardiovascular: Regular rhythm and rate without murmur or S3. Abdomen: Soft, nondistended. Skin: Warm and dry. ASSESSMENT AND PLAN: 1. Viral upper respiratory tract infection. Influenza A. Underlying chronic lymphocytic leukemia. A lot of pulmonary congestion. No sign of bacterial pneumonia doing better. 2. Chronic lymphocytic leukemia. Counts remain stable. 3. Presented with high PTT. Discussed with Dr. Hendricks and she does have a history of deep venous thrombosis in the past and so we will put her on just 1 mg of Coumadin at bedtime. Restart her Coumadin. Looking at her medications, she is on Ativan 1 mg at bedtime, Norvasc 5 mg a day, budesonide formoterol 2 puffs b.i.d., hydrocodone 10 mg q.6 hours p.r.n., metoprolol 12.5 mg p.o. b.i.d., Tamiflu 75 mg p.o. b.i.d., Protonix 20 mg b.i.d., MiraLAX 17 g p.o. daily. cc: Brendon Chacko MD
[2019-12-23 17:58] LABS: INR 0.95; PROTIME 12.8 Seconds (11.0-16.0)
[2019-12-23] MEDS ORDERED: COUMADIN PO SCH (21:00)
[2019-12-23] MEDS: ATIVAN PO SCH (23:35)
[2019-12-24 08:18] VITALS: BP 147/57
[2019-12-24] MEDS: MIRALAX PO SCH (08:20)
[2019-12-24] MEDS: LOPRESSOR PO SCH (08:21)
[2019-12-24] MEDS: PROTONIX PO SCH (08:21)
[2019-12-24] MEDS: NORVASC PO SCH (08:21)
[2019-12-24] MEDS: TAMIFLU PO SCH (08:22)
[2019-12-24] MEDS: SYMBICORT 80/4.5 MICROGM INHALER INH SCH (08:38)
[2019-12-24] MEDS: DUONEB (A & A) INH SCH ×2 (08:39→11:00)
--- NOTE | 2019-12-24 14:06 | DISCHARGE SUMMARY ---
ADMISSION DATE: 12/18/2019 DISCHARGE DATE: 12/24/2019 REASON FOR ADMISSION: This is an 79-year-old longstanding patient of mine. She was started feeling bad about 4 or 5 days before admission. Came in on 12/18/2019, I actually saw her in the clinic a couple days before. It appeared she had a viral syndrome and we did test her. They found influenza A. PAST MEDICAL HISTORY: 1. Underlying chronic lymphocytic leukemia in remission right now. Counts are stable per Dr. Hendricks. 2. Hypertension. 3. Osteoarthritis. 4. History of deep venous thrombosis. 5. Osteopenia. 6. Reflux disease. 7. Atrial fibrillation, paroxysmal. 8. History of angioedema. 9. Scoliosis of the thoracic spine or frequent pain in the upper shoulders and thoracic spine. 10. General anxiety. ADMISSION DIAGNOSES: 1. Viral upper respiratory infection, influenza A. 2. She also I think had a viral gastroenteritis. HOSPITAL COURSE: She was positive for influenza A. We started her on Tamiflu. She had a lot of fatigue, general malaise, myalgias and with underlying chronic lymphocytic leukemia. We held her Coumadin as her PTT was a little elevated and after discussing with Dr. Hendricks, her delicatessen clerk oncologist, we was decided we would put her back on Coumadin 1 mg at bedtime. She finish out her 4 course of Tamiflu. Her counts remain normal. She was eating and was requesting to go home, so we will discharge her home. DISCHARGE MEDICATIONS: She can take Tylenol 650 mg q.4 hours p.r.n. She is on hydralazine 10 mg which I think she takes 3 times a day, hydrocodone 10/325 one q.4-6 hours p.r.n., Isordil 10 mg p.o. t.i.d., lorazepam 1 mg at bedtime, Lopressor 12.5 mg b.i.d., Tamiflu 75 mg b.i.d., pantoprazole 1 tablet I think it is 20 mg b.i.d., MiraLAX 17 g daily, and we will go down on the Coumadin to 1 mg at bedtime. FOLLOWUP: I will see her back in my office in a couple weeks. cc: Brendon Chacko MD
== END 2019-12-24 14:43 | disposition home health service (06) | DRG 641 ==
LOC: SUPCPDRO → ED 07:14 → EDIPHOLD 11:38 → 3N 15:47
PROVIDERS: ADMIT Emergency Medicine; ATTEND Emergency Medicine